=== PATIENT | female | born 1950 | race Caucasian/White ===

== ENCOUNTER → 2017-10-25 07:44 | Outpatient (CLI) | payer MEDICARE, SELFPAY ==
[2017-10-25 09:51] LABS: Abs Immature Grans 0.04 k/cumm (0.0-0.09); Absolute Basophil Count 0.02 k/cumm (0.0-0.2); Absolute Eosinophil Count 0.17 k/cumm (0.0-0.7); Absolute Lymphocyte Count 1.74 k/cumm (1.2-3.4); Absolute Monocyte Count 0.17 k/cumm (0.11-0.7); Absolute Neutrophil Count 3.48 k/cumm (1.2-6.7); Basophils % 0.4; HCT 43.9 % (36.0-46.0); HGB 14.5 g/dL (12.0-15.5); Immature Grans % 0.7; Mean Corpuscular Hemoglobin 29.7 pg (27.0-33.0); Mean Corpuscular Volume 89.8 fL (80-95); Mean Platelet Volume 10.4 fL (8.0-11.0); Neutrophils % 61.9; Platelet Count 243 x1000/uL (130-400); RBC 4.89 m/cumm (4.00-5.20); White Blood Cell Count 5.62 k/cumm (4.4-10.8)
[2017-10-25 10:00] LABS: ALT 32 U/L (12-78); AST 15 U/L (15-37); Albumin 3.8 g/dL (3.4-5.0); Alkaline Phosphatase 79 U/L (46-116); Anion Gap 9.8 mmol/L (3-11); BUN 20 mg/dL (7-18); Bilirubin, Total 0.4 mg/dL (0.2-1.0); CO2 28.2 mmol/L (21.0-32.0); CREATININE 0.86 mg/dL (0.55-1.02); Calcium 8.7 mg/dL (8.5-10.1); Chloride 104 mmol/L (98-107); Glucose 147 mg/dL (70-100); Potassium 3.7 mmol/L (3.5-5.1); Sodium 142 mmol/L (136-145); Total Protein 6.9 g/dL (6.4-8.2)
== END ==
PROVIDERS: PCP Pain Medicine Pain Medicine; Visit Provider Internal Medicine Medical Oncology
DX: C50.211 Malignant neoplasm of upper-inner quadrant of right female breast (principal); Z17.0 Estrogen receptor positive status [ER+]
CPT/HCPCS: 36415; 80053; 85025

== ENCOUNTER 2018-06-06 04:13 | Outpatient (CLI) | payer MEDICARE, OTHER, SELFPAY ==
[2018-06-06 09:39] LABS: Abs Immature Grans 0.03 k/cumm (0.0-0.09); Absolute Basophil Count 0.05 k/cumm (0.0-0.2); Absolute Eosinophil Count 0.18 k/cumm (0.0-0.7); Absolute Lymphocyte Count 2.08 k/cumm (1.2-3.4); Absolute Monocyte Count 0.44 k/cumm (0.11-0.7); Absolute Neutrophil Count 3.27 k/cumm (1.2-6.7); Basophils % 0.8; HCT 42.8 % (36.0-46.0); HGB 14.1 g/dL (12.0-15.5); Immature Grans % 0.5; Lymphocytes % 34.4; Mean Corp. HGB Concentration 32.9 g/dL (32.0-36.0); Mean Corpuscular Hemoglobin 29.1 pg (27.0-33.0); Mean Corpuscular Volume 88.4 fL (80-95); Mean Platelet Volume 10.2 fL (8.0-11.0); Monocytes % 7.3; Platelet Count 235 x1000/uL (130-400); RBC 4.84 m/cumm (4.00-5.20); RBC Distribution Width 16.6 % (11.7-14.6); White Blood Cell Count 6.05 k/cumm (4.4-10.8)
[2018-06-06 11:00] LABS: ALT 26 U/L (12-78); AST 14 U/L (15-37); Alkaline Phosphatase 79 U/L (46-116); Anion Gap 10.1 mmol/L (3-11); BUN 24 mg/dL (7-18); Bilirubin, Total 0.4 mg/dL (0.2-1.0); CO2 28.9 mmol/L (21.0-32.0); CREATININE 1.02 mg/dL (0.55-1.02); Calcium 9.4 mg/dL (8.5-10.1); Chloride 101 mmol/L (98-107); Estimated GFR 54.05 (mL/min/1.73m2); Glucose 89 mg/dL (70-100); Potassium 4.1 mmol/L (3.5-5.1); Sodium 140 mmol/L (136-145); Total Protein 6.7 g/dL (6.4-8.2)
== END 2018-06-06 04:33 ==
PROVIDERS: PCP Pain Medicine Pain Medicine; Visit Provider Internal Medicine Medical Oncology
DX: C50.211 Malignant neoplasm of upper-inner quadrant of right female breast (principal); Z17.0 Estrogen receptor positive status [ER+]
CPT/HCPCS: 36415; 80053; 85025

== ENCOUNTER 2018-12-02 01:32 | Outpatient (CLI) | payer MEDICARE, OTHER, SELFPAY ==
[2018-12-02 11:12] LABS: Abs Immature Grans 0.03 k/cumm (0.0-0.09); Absolute Basophil Count 0.02 k/cumm (0.0-0.2); Absolute Eosinophil Count 0.18 k/cumm (0.0-0.7); Absolute Lymphocyte Count 1.77 k/cumm (1.2-3.4); Absolute Monocyte Count 0.39 k/cumm (0.11-0.7); Absolute Neutrophil Count 2.57 k/cumm (1.2-6.7); Basophils % 0.4; Eosinophils % 3.6; HCT 41.2 % (36.0-46.0); HGB 13.4 g/dL (12.0-15.5); Immature Grans % 0.6; Lymphocytes % 35.7; Mean Corp. HGB Concentration 32.5 g/dL (32.0-36.0); Mean Corpuscular Hemoglobin 29.3 pg (27.0-33.0); Mean Platelet Volume 10.1 fL (8.0-11.0); Monocytes % 7.9; Neutrophils % 51.8; Platelet Count 228 x1000/uL (130-400); RBC 4.58 m/cumm (4.00-5.20); RBC Distribution Width 17.1 % (11.7-14.6); White Blood Cell Count 4.96 k/cumm (4.4-10.8)
[2018-12-02 11:26] LABS: ALT 27 U/L (14-59); AST 15 U/L (15-37); Albumin 3.7 g/dL (3.4-5.0); Alkaline Phosphatase 70 U/L (46-116); Anion Gap 8.1 mmol/L (3-11); BUN 21 mg/dL (7-18); Bilirubin, Total 0.3 mg/dL (0.2-1.0); CO2 27.9 mmol/L (21.0-32.0); CREATININE 0.89 mg/dL (0.55-1.02); Calcium 8.8 mg/dL (8.5-10.1); Chloride 109 mmol/L (98-107); Glucose 89 mg/dL (70-100); Potassium 3.9 mmol/L (3.5-5.1); Sodium 145 mmol/L (136-145); Total Protein 6.8 g/dL (6.4-8.2)
== END 2018-12-02 01:52 ==
PROVIDERS: Nurse Practitioner Family; PCP Pain Medicine Pain Medicine; Visit Provider Internal Medicine Hematology & Oncology
DX: C50.211 Malignant neoplasm of upper-inner quadrant of right female breast (principal); Z17.0 Estrogen receptor positive status [ER+]
CPT/HCPCS: 36415; 80053; 85025

== ENCOUNTER 2019-12-14 13:59 | Outpatient (REF) | payer MEDICARE, OTHER, SELFPAY ==
[2019-12-16 21:54] LABS: Patient Race White; SARS-CoV-2 RNA Undetected (Undetected); SARS-CoV-2 Specimen Source Nasal
== END 2019-12-14 14:19 ==
LOC: NCHCN 13:59
PROVIDERS: PCP Pain Medicine Pain Medicine; Visit Provider Family Medicine
DX: Z20.828 Contact with and (suspected) exposure to other viral communicable diseases (principal)
CPT/HCPCS: U0003

== ENCOUNTER 2020-05-03 20:36 | Emergency (ER) | payer MEDICARE, OTHER, SELFPAY ==
[2020-05-03 20:40] VITALS: BP 146/81; PULSE 73; RESP 16; TEMP 36.7; O2SAT 98
--- NOTE | 2020-05-03 20:40 | ED.GENADUL_ITS ---
Discharge Plan Disposition Patient Disposition: HOME Condition: Good Discharge Details Clinical Impression: Septic bursitis of elbow Primary Care Provider: Ankit Vera ED Provider: Jake Chaudhry Meds and New Rx's Prescriptions: New cephalexin 500 mg capsule 500 mg PO Q8H Qty: 20 RF: 0 Continued rauwolfia serpentina (bulk) 1 GM powder 3 drp PO DAILY RF: 0 Discharge Instructions Instructions: Elbow Bursitis (ED) Additional Instructions: This appears to be an infected bursitis likely brought on to the trauma from last week and subsequent infection. Should respond to antibiotics in the next 24 to 48 hours. Keep your arm elevated. Continue acetaminophen and/or ibuprofen for pain and discomfort. Take antibiotic as directed every 8 hours. Follow-up with primary care Thursday if not significant improvement. Return to ED if worsening symptoms, increased pain, decreased range of motion, fever, chills. Referrals: Ankit Vera [Primary Care Provider] - Discharge Data Discharge Date/Time-TO BE ENTERED AT DEPARTURE: 05/03/20 21:10 Medical Decision Making Patient appears to have a septic bursitis. The swelling distal is related to gravity pull. There is probably some overlying cellulitis. She is afebrile and looks well with no systemic symptoms. She actually has normal range of motion of the left elbow. No pain within the joint itself. Swelling over home health nurse about the size of a golf ball. There is warmth, erythema, mild tenderness. Will start patient on cephalexin. Should notice improvement within 36-48 hours. If no improvement follow-up with PCP on Thursday. If significantly worse over the weekend return to ED. HPI General Mode of arrival: ambulatory . Date/Time Provider Initiated Documentation: 05/03/20 20:40 . Limitations to Documentation: no limitations . Information obtained by: patient and RN notes reviewed . HPI Narrative: Patient presents to ED with swelling and redness to the back of her left elbow. 1 week ago she banged it on the bathtub while giving her dog a bath. Had pain at night some swelling seem to be getting better. In the last 24 hours it has become more swollen, red, painful. She still has decent range of motion of the elbow without significant pain. She denies any fever or chills. She has been using ibuprofen. She is now noticed swelling down around the wrist as well. She talked to a friend who was a nurse and was encouraged to come to ED to evaluate for infection. Related Data Home Medications Medication Instructions Recorded Confirmed marlene gallo (bulk) 3 drp PO DAILY 12/18/15 05/03/20 cephalexin 500 mg PO Q8H #20 cap 05/03/20 Previous Rx's Medication Instructions Recorded cephalexin 500 mg PO Q8H #20 cap 05/03/20 Allergies Allergy/AdvReac Type Severity Reaction Status Date / Time propoxyphene HCl AdvReac Severe Unverified 05/03/20 20:43 [facility] Review of Systems Constitutional Constitutional: Denies chills, Denies fever(s) and Denies weakness Cardiovascular Cardiovascular: Denies dyspnea Respiratory Respiratory: Denies cough and Denies dyspnea Musculoskeletal Musculoskeletal: Denies arthralgias and Denies numbness Integumentary/Breasts Skin/Breast: Reports erythema Neurologic Neurologic: Denies numbness and Denies weakness [facility] Medical History Breast cancer Surgical History History of lumpectomy of right breast Social History Smoking/Tobacco Use Status: Never Smoking risk assessment performed?: Yes Alcohol Intake: never Drug use: Never Substance use type: does not use Current gender identity: female Do you feel safe at home: Yes Do you feel safe in your relationship?: Yes Exam Const General: cooperative, comfortable and no acute distress Orientation: alert and oriented x3 [facility] Head: normocephalic and atraumatic Neck Neck: trachea midline and supple Resp Effort & Inspection: normal respiratory effort Skin General skin exam: erythema Wounds: no wounds Neuro General: patient alert, patient oriented x3 and no focal motor deficits Sensory Exam: no sensory deficits noted Extrem Left upper extremity: elbow/forearm Details: tenderness Location: of the olecranon (bursa), swelling Location: of the olecranon (bursa swelling), normal ROM, warmth Location: of the olecranon bursa and distal pulses intact
[2020-05-03] MEDS: Cephalexin 500 MG CAP, 2 CAPS/BTL PO (21:07)
--- NOTE | 2020-05-04 08:36 | NUR.NOTE ---
Nursing Note: received note to call in prescription for pt at [facility] in [facility]. Cephalexin called to Pharmacist Adriano @ [phone].
== END 2020-05-03 21:10 | disposition home or self-care (01) ==
LOC: ER 21:11
PROVIDERS: Emergency Provider Emergency Medicine; PCP Pain Medicine Pain Medicine
DX: M70.32 Other bursitis of elbow, left elbow (principal)
CPT/HCPCS: 99283

== ENCOUNTER 2020-11-26 20:29 | Emergency (ER) | payer MEDICARE, OTHER, SELFPAY ==
[2020-11-26 20:43] VITALS: BP 167/84; PULSE 89; RESP 18; TEMP 36.3; O2SAT 98
--- NOTE | 2020-11-26 21:47 | ED.GENADUL_ITS ---
Discharge Plan Disposition Patient Disposition: HOME Condition: Improving Discharge Details Clinical Impression: Odontalgia Primary Care Provider: Ankit Vera ED Provider: Shady Avila Home Meds and New Rx's Prescriptions: New penicillin V potassium 500 mg tablet 500 mg PO TID 10 Days Qty: 30 RF: 0 Continued rauwolfia serpentina (bulk) 1 GM powder 3 drp PO DAILY RF: 0 Discharge Instructions Instructions: Toothache (ED) Additional Instructions: Take penicillin as prescribed. Follow-up with dentistry and asked to be placed on their short-term callback list. Tylenol and ibuprofen as needed for pain. Salt water gargles will speed in healing. [facility]. Return to ER for any acute concerns. Your prescription was fax[facility] to [facility] [place] Medical Decision Making 70-year-old female presents from home with onset of left upper dental pain after biting into hard food a number of days ago. Is been throbbing, constant pain since that time. Patient arrives to ER stable and without significant distress. She has likely developing periapical infection of the left lateral incisor. Will place on penicillin, she has freestanding plans to follow-up with dentistry. She declines a dental block. She is otherwise stable and improved. HPI General Mode of arrival: ambulatory . Date/Time Provider Initiated Documentation: 11/26/20 21:37 . Limitations to Documentation: no limitations . Information obtained by: patient . History of Present Illness 70 year old F presents to the emergency department with the chief complaint of Tooth pain left upper, described as moderate, Quality is described as dull, and is localized to the mouth and left. Patient reports no radiation. Patient started experiencing this day(s) and it has been constant. No relieving factors improve symptom(s), No exacerbating factors reported . Patient notes denies headaches, loss of appetite and nausea/vomiting. Patient did receive the following treatments prior to arrival, NSAID Related Data Home Medications Medication Instructions Recorded Confirmed rauwolfia serpentina (bulk) 3 drp PO DAILY 12/18/15 05/03/20 penicillin V potassium 500 mg PO TID 10 Days #30 tab 11/26/20 Previous Rx's Medication Instructions Recorded penicillin V potassium 500 mg PO TID 10 Days #30 tab 11/26/20 Allergies Allergy/AdvReac Type Severity Reaction Status Date / Time propoxyphene HCl AdvReac Severe Unverified 11/26/20 20:48 [From [facility]] General Stated Complaint: DentalOral JULIETTE: 4 Review of Systems Narrative: 6 systems reviewed and otherwise negative [facility] Medical History Breast cancer Surgical History History of lumpectomy of right breast Social History Smoking/Tobacco Use Status: Never Smoking risk assessment performed?: Yes Alcohol Intake: never Drug use: Never Substance use type: does not use Current gender identity: female Do you feel safe at home: Yes Do you feel safe in your relationship?: Yes Exam Narrative Exam Narrative: GEN: awake, alert, oriented 3. Pleasant, well groomed, interactive. HEAD: Normocephalic, atraumatic ENT: Mucous membranes moist, oropharynx with tenderness to the left lateral incisor. No significant buccal or lingual fluctuance., External ear exam unremarkable NECK: Full ROM, no DIVYA, no menigismus EXT: Full ROM, no edema, no rash Neuro: Grossly normal neurologic exam, conversant, interactive. Psych: Speech fluent, thoughts congruent, affect normal Course Vital Signs Vital signs: Vital Signs Temperature 36.3 C L 11/26/20 20:43 Pulse 89 11/26/20 20:43 Respiratory Rate 18 11/26/20 20:43 Blood Pressure 167/84 H 11/26/20 20:43 Pulse Oximetry 98 11/26/20 20:43 Temperature 36.3 C L 11/26/20 20:43 Temperature Source Temporal Artery Scan 11/26/20 20:43 Pulse 89 11/26/20 20:43 Respiratory Rate 18 11/26/20 20:43 Respiratory Effort 11/26/20 20:46 Blood Pressure 167/84 H 11/26/20 20:43 Blood Pressure Position Supine 11/26/20 20:43 Pulse Oximetry 98 11/26/20 20:43 Pain Level 10 11/26/20 20:43
[2020-11-26 22:01] VITALS: BP 148/74; PULSE 64; RESP 18; TEMP 36.6; O2SAT 99
== END 2020-11-26 22:09 | disposition home or self-care (01) ==
PROVIDERS: Emergency Provider Emergency Medicine; PCP Pain Medicine Pain Medicine
DX: R68.84 Jaw pain (principal)
CPT/HCPCS: 99283

== ENCOUNTER 2022-03-15 12:13 | Outpatient (CLI) | payer MEDICARE, OTHER, SELFPAY ==
--- NOTE | 2022-03-15 | DI.RAD_ITS ---
Exam(s) XR CHEST 2V PA LATERAL EXAM: XR CHEST 2V PA LATERAL CLINICAL HISTORY: influenza a (ICD-J09.x2) TECHNIQUE: 2D digital imaging was performed. COMPARISON: No exams were available for comparison FINDINGS: HEART: Normal size. Aorta: Not dilated. PULMONARY VASCULATURE: Normal. LUNGS: Clear. PLEURAL SPACE: No pleural effusion or pneumothorax. BONE:Unremarkable for age. IMPRESSION: No acute abnormality. DATA REPOSITORY: RADIATION DOSE DELIVERED:
--- NOTE | 2022-03-15 13:16 | DI.VRAD_ITS ---
PROCEDURE INFORMATION: Exam: XR Chest Exam date and time: 03/15/2022 12:36 PM Age: 71 years old Clinical indication: Other: Influenza a, checking to make sure there is no pneumonia TECHNIQUE: Imaging protocol: Radiologic exam of the chest. 2image(s) are provided. Views: 2 views. COMPARISON: No relevant prior studies available. FINDINGS: Lungs: No lobar consolidation is appreciated. Pleural spaces: No pneumothorax or pleural effusion is appreciated. Heart/Mediastinum: The cardiomediastinal silhouette is normal. No cardiac decompensation is appreciated. Diaphragm: The hemidiaphragms are symmetric. Bones/joints: No fracture or dislocation is appreciated. Soft tissues: No radiopaque foreign body or subcutaneous emphysema is appreciated. IMPRESSION: No lobar consolidation is appreciated.No acute cardiopulmonary changes are appreciated. Dictated and Authenticated by: Corky Jay MD. Ordering:YELENA Carter MD
== END 2022-03-15 12:33 ==
LOC: DI 12:22
PROVIDERS: PCP Pain Medicine Pain Medicine; Visit Provider Physician Assistant Medical
DX: J09.X2 Influenza due to identified novel influenza A virus with other respiratory manifestations (principal)
CPT/HCPCS: 71046

== ENCOUNTER 2022-08-14 09:10 | Outpatient (CLI) | payer MEDICARE, SELFPAY ==
--- NOTE | 2022-08-14 09:00 | DI.RAD_ITS ---
Exam(s) XR KNEE RT 4V AP,LAT,MONI,PAT EXAM: XR KNEE RT 4V AP,LAT,MONI,PAT CLINICAL HISTORY: Right knee pain. TECHNIQUE: 2D digital imaging was performed. COMPARISON: No exams were available for comparison FINDINGS: Four views No evidence of fracture although there does appear to be a joint. There are significant degenerative changes the medial compartment. Some joint space narrowing and marginal osteophytes. Also appears to be a possible osteochondral defect at the articular surface of the medial femoral condyle. There is a prominent degenerative subarticular cysts in the medial femoral condyle also noted. Lateral com partment exhibits normal height but also exhibits faint chondrocalcinosis. Patellofemoral compartment unremarkable. IMPRESSION: Findings in the medial compartment as described above. DATA REPOSITORY: RADIATION DOSE DELIVERED:
== END 2022-08-14 09:11 | disposition home or self-care (01) ==
LOC: DIORS 09:11
PROVIDERS: PCP Pain Medicine Pain Medicine; Referring Provider Pain Medicine Pain Medicine; Visit Provider Physician Assistant
DX: M17.11 Unilateral primary osteoarthritis, right knee
CPT/HCPCS: 99214; 73564

== ENCOUNTER → 2023-01-20 14:36 | Outpatient (BNVA) | payer MEDICARE, SELFPAY | PROVIDERS: PCP Pain Medicine Pain Medicine; Referring Provider Pain Medicine Pain Medicine; Visit Provider Student in an Organized Health Care Education/Training Program | DX: M17.11 Unilateral primary osteoarthritis, right knee (principal); M65.4 Radial styloid tenosynovitis [de Quervain] | CPT/HCPCS: 99213 ==

== ENCOUNTER 2024-01-21 21:41 | Outpatient (REF) | payer MEDICARE, SELFPAY ==
--- OUTSIDE RECORDS SUMMARY | 2024-01-21 21:45 | XMS_ITS | Encounter Summary ---
Author Organization [facility] [place] [address] Care Team Providers Care Turner Splitter Machine Operator Name Role Phone Ankit Vera MD Primary Care Provider + [phone] Encounter Details Date Type Department Care Team (Late st Contact Info) Description 12/06/2021 Orders Only Obstetrics [place] [address] Kamini Castorena V THREAD MARKER [facility] OBSTETRICS [place] [address] Social History Tobacco Use Types Packs/Day Years Used Date Smoking Tobacco: Former Cigarettes Q uit: 07/30/1973 Smokeless Tobacco: Never Comments:smoked a little in college Alcohol Use Standard Drinks/Week Comments No 0 (1 standard drink = 0.6 oz pur e alcohol) Once a month Sex and Gender Information Value Date Recorded Sex Assigned at Female 03/25/2021 7:30 PM EST Gender Identity Female 03/25/2021 7:31 PM EST Sexual Orientation Straight 03/25/2021 7: 30 PM EST documented as of this encounter Plan of Treatment Not on file documented as of this encounter Visit Diagnoses Not on filedocumented in this encounter Care Teams Turner Splitter Machine Operator Relationship Specialty Start Date End Date Ankit Vera MD [id number] [address] PCP - General 02/05/10 documented as of this encounter
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
--- OUTSIDE RECORDS SUMMARY | 2024-01-21 21:45 | XMS_ITS | Encounter Summary ---
Author Organization [facility] [place] [address] Care Team Providers Care Medtronics Technician Name Role Phone Ankit Vera MD Primary Care Provider + [phone] Reason for Visit * Reason Onset Date Comments Medication Refill 11/09/2023 Encounter Details Date Type Department Care Team (Late st Contact Info) Description 11/09/2023 Refill Obstetrics [place] [address] Kamini Castorena APRN [facility] OBSTETRICS [place] [address] Social History Tobacco Use Types Packs/Day Years [...] on filedocumented in this encounter Care Teams Medtronics Technician Relationship Specialty Start Date End Date Ankit Vera MD [address] [address] PCP - General 02/05/10 documented as of this encounter
--- OUTSIDE RECORDS SUMMARY | 2024-01-21 21:45 | XMS_ITS | Encounter Summary ---
Author Organization [facility] [place] [address] Care Team Providers Care Swine Genetics Researcher Name Role Phone Ankit Vera MD Primary Care Provider + [phone] Encounter Details Date Type Department Care Team (Late st Contact Info) Description 11/12/2023 Telephone Obstetrics [place] [phone] Mary James Social History Tobacco Use Types Packs/Day Years [...] PM EST documented as of this encounter Miscellaneous Notes * Telephone Encounter - Mary James - 11/12/2023 11:40 AM EDT Left message to schedule 6 month follow up around 01/11 for LS check up with Kamini Castorena. documented in this encounter Plan of Treatment Not on file documented as of this encounter Visit Diagnoses Not on filedocumented in this encounter Care Teams Swine Genetics Researcher Relationship Specialty Start Date End Date Ankit Vera MD [address] [address] PCP - General 02/05/10 documented as of this encounter
--- OUTSIDE RECORDS SUMMARY | 2024-01-21 21:45 | XMS_ITS | Encounter Summary ---
Author Organization [facility] [place] [address] Care Team Providers Care Stars Analytical Lead Name Role Phone Ankit Vera MD Primary Care Provider + [phone] Reason for Visit * Reason Onset Date Comments Medication Refill 01/29/2022 Encounter Details Date Type Department Care Team (Late st Contact Info) Description 01/29/2022 Refill Obstetrics [place] [address] Sophia Alexandra MD [facility] [address] OBSTETRICS [place] [address] Social History Tobacco Use Types Packs/Day Years [...] on filedocumented in this encounter Care Teams Stars Analytical Lead Relationship Specialty Start Date End Date Ankit Vera MD [address] [address] (work) PCP - General 02/05/10 documented as of this encounter
--- OUTSIDE RECORDS SUMMARY | 2024-01-21 21:45 | XMS_ITS | Encounter Summary ---
Author Organization [facility] [place] [address] Care Team Providers Care Physician Practice Consultant Name Role Phone Ankit Vera MD Primary Care Provider + [phone] Reason for Visit * Reason Onset Date Comments Medication Refill 12/22/2019 Encounter Details Date Type Department Care Team (Late st Contact Info) Description 12/22/2019 Refill Obstetrics [place] [address] Sophia Alexandra MD [facility] [address] OBSTETRICS [place] [address] Social History Tobacco Use Types Packs/Day Years [...] on filedocumented in this encounter Care Teams Physician Practice Consultant Relationship Specialty Start Date End Date Ankit Vera MD [address] [address] PCP - General 02/05/10 documented as of this encounter
--- OUTSIDE RECORDS SUMMARY | 2024-01-21 21:45 | XMS_ITS | Encounter Summary ---
Author Organization [facility] [place] [address] Care Team Providers Care Manager Eligibility Name Role Phone Ankit Vera MD Primary Care Provider [phone] Encounter Details Date Type Department Care Team (Late st Contact Info) Description 10/13/2019 10:30 AM EDT Office Visit Hematology/Oncology at [address] [phone] Mau Baker MD [facility] [address] [place] [address] Megan Rodriguez DIRECTOR OF RETAIL ANALYTICS [address] [place] [address] DR HEMATOLOGY ONCOLOGY [place], [place] [id number] Malignant neoplasm of upper-inner quadrant of right breast in female, estrogen receptor positive Social History Tobacco Use Types Packs/Day Years [...] Sign Reading Time Taken Comments Blood Pressure 133/57 10/13/2019 10:20 AM EDT Pulse 63 10/13/2019 10:20 AM EDT Temperature 36.7 ??C (98.1 ??F) 10/13/2019 10:20 AM E DT Respiratory Rate 18 10/13/2019 10:20 AM EDT Oxygen Saturation 99% 10/13/2019 10:20 AM EDT Inhaled Oxygen Concentration - - Weight 70.3 kg (155 lb) 10/13/2019 10:20 AM EDT Height 158.5 cm (5' 2.4) 10/13/2019 10:20 AM ED T copied Body Mass Index 27.99 10/13/2019 10:20 AM EDT documented in this encounter Progress Notes * Mau Baker MD - 10/13/2019 10:30 AM EDT Subjective: Patient ID: Flor Lema is a 69 y.o. female. HPI The patient is a 69-year-old female who returns to the [facility]. Right breast cancer 09/27 1.3 cm, node-negative ER positive, MS positive, HER-2/zayda negative Partial mastectomy Complete radiation therapy 11/28 Decline hormonal therapy Last mammogram -10/02 The patient continues to do quite well. She is working for an [employer] stand down in [place]. 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 She has not noted any lumps or bumps. No new focal pains. Energy is excellent. She has no complaints. Patient Active Problem List Diagnosis Code ??? 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 Elevated blood pressure reading with diagnosis of hypertension I10 ??? Hypertension I10 Current Outpatient Medications: ??? clobetasoL (TEMOVATE) 0.05 % Cream, Apply topically nightly. Apply pea-sized amount every othernight until the next clinic visit, Disp: 30 g, Rfl: 0 ??? naltrexone HCl (NALTREXONE ORAL), Take 3 mg by mouth daily., Disp: , Rfl: ??? HOMEOPATHIC DRUGS (RAUWOLFIA ORAL), Take by mouth. Patient takes this for blood pressure., Disp: , Rfl: ??? b complex vitamins Capsule, Take 1 capsule by mouth daily., Disp: , Rfl: ??? vitamin A (AQUASOL) 10,000 unit Capsule, Take 10,000 Units by mouth daily., Disp: , Rfl: ??? ascorbic acid (VITAMIN C) 1,000 mg Tablet, Take 1,000 mg by mouth 3 times daily., Disp: , Rfl: ??? Cholecalciferol, Vitamin D3, (VITAMIN D-3) 2,000 unit Capsule, Take 5,000 Units by mouth daily., Disp: , Rfl: ??? ibuprofen (ADVIL;MOTRIN) 200 mg Tablet, Take 200 mg by mouth every 6 hours as needed for Pain.,Disp: , Rfl: Allergies Allergen Reactions ??? Darvon [Propoxyphene] GI upset Review of Systems Constitutional: Negative for fatigue, fever and unexpected weight change. HENT: Negative for nosebleeds. Respiratory: Negative for cough and shortness of breath. Cardiovascular: Negative for chest pain and palpitations. Gastrointestinal: Negative for abdominal pain and diarrhea. Musculoskeletal: Negative for back pain. Skin: Negative for rash. Neurological: Negative for speech difficulty. Hematological: Negative for adenopathy. Does not bruise/bleed easily. All other systems reviewed and are negative. Objective: Physical Exam Constitutional: General: She is not in acute distress. HENT: Mouth/Throat: Pharynx: No oropharyngeal exudate. Eyes: General: No scleral icterus. Cardiovascular: Rate and Rhythm: Normal rate and regular rhythm. Heart sounds: Normal heart sounds. Pulmonary: Effort: Pulmonary effort is normal. Breath sounds: Normal breath sounds. No wheezing. Abdominal: General: Bowel sounds are normal. Palpations: Abdomen is soft. There is no mass. Tenderness: There is no abdominal tenderness. Lymphadenopathy: Cervical: No cervical adenopathy. Skin: Findings: No rash. Neurological: Mental Status: She is alert and oriented to person, place, and time. Assessment and Plan: 69-year-old female who is now 5 years out from resection of a stage I right- sided breast cancer. She did get her surgery and radiation therapy but declined hormonal therapy. There are no signs of local or systemic recurrence and overall she seems to be doing well. She is probably at low risk for recurrence of this primary tumor now that she is out 5 years. We did talk about discontinuing follow-up in the cancer center and only following up with her primary care doctor and I think that would be reasonable. We would recommend a yearly mammogram but she does not need any routine laboratory monitoring for her history of breast cancer. documented in this encounter Plan of Treatment Not on file documented as of this encounter Visit Diagnoses Diagnosis Malignant neoplasm of upper-inner quadrant of right breast in female, estrogen receptor positive documented in this encounter Care Teams Manager Eligibility Relationship Specialty Start Date End Date Ankit Vera MD [address] [place] [address] PCP - General 02/05/10 documented as of this encounter
--- OUTSIDE RECORDS SUMMARY | 2024-01-21 21:45 | XMS_ITS | Encounter Summary ---
Author Organization [facility] [place] [address] Care Team Providers Care Spot Remover Name Role Phone Ankit Vera MD Primary Care Provider + [phone] Reason for Visit * Reason Onset Date Comments Medication Refill 02/01/2021 Encounter Details Date Type Department Care Team (Late st Contact Info) Description 02/01/2021 Refill Obstetrics [place] [address] Sophia Alexandra MD [facility] DR OBSTETRICS [place] [address] Social History Tobacco Use Types Packs/Day Years [...] on filedocumented in this encounter Care Teams Spot Remover Relationship Specialty Start Date End Date Ankit Vera MD [address] [address] (work) PCP - General 02/05/10 documented as of this encounter
--- OUTSIDE RECORDS SUMMARY | 2024-01-21 21:45 | XMS_ITS | Encounter Summary ---
Author Organization [facility] [place] [address] Care Team Providers Care Supervisor Malt [employer] Name Role Phone Ankit Vera MD Primary Care Provider [phone] Encounter Details Date Type Department Care Team (Latest Contact Info) Description 06/17/2021 12:17 PM EDT - 06/17/2021 11:59 PM EDT Hospital Encounter Mammography/[place] [address] Kamini Castorena V, [facility] OBSTETR[place] [address] Well woman exam with routine gynecological exam; Asymptomatic menopausal state Discharge Disposition: Home Social History Tobacco Use Types Packs/Day Years [...] PM EST documented as of this encounter Medications at Time of Discharge Medication Sig Dispensed Refills Start Date End Date naltrexone HCl (NALTREXONE ORAL) Take 3 mg by mouth daily. HOMEOPATHIC DRUGS (RAUWOLFIA ORAL) Take by mouth. Patient takes this for blood pressure. b complex vitamins Capsule Take 1 capsule by mouth daily. vitamin A (AQUASOL) 10,000 unit Capsule Take 10,000 Units by mouth daily. ascorbic acid (VITAMIN C) 1,000 mg Tablet Take 1,000 mg by mouth 3 times daily. cholecalciferol, Vitamin D3, 50 mcg (2,000 unit) Capsule Take 5,000 Units by mouth daily. ibuprofen (ADVIL;MOTRIN) 200 mg Tablet Take 200 mg by mouth every 6 hours as needed for Pain. clobetasoL (Temovate) 0.05 % Cream Apply topically nightly. Apply pea-sized amount every other night until the next clinic visit 30 g 02/04/2021 01/29/2022 clobetasoL (Temovate) 0.05 % Cream Apply topically nightly. Apply pea-sized amount every other night until the next clinic visit 30 g 02/04/2021 12/06/2021 documented as of this encounter Plan of Treatment Not on file documented as of this encounter Procedures Procedure Name Priority Date/Time Associated Diagnosis Comments DXA CENTRAL SPINE, HIP, AND/OR WHOLE BODY (GENERIC) Routine 06/17/2021 12:50 PM EDT Well woman exam with routine gynecological exam Asymptomatic menopausal state documented in this encounter Results * DXA Central Spine, [...] BMD measurements and plots are available in [facility] under the imaging tab. Paper copies will be sent to providers without E- access. If you have received this report without the data sheet and do not have access to [facility], please contact Radiology Nuclear Plant Technical Advisor at [phone] Thursday thru Thursday 8am-4pm. ? Bone Density Report ? Name: ?Flor Lema Age: ? 71 Sex: ? Female Ethnicity: ? White Date of : 1950 Exam Date: June 17, 2021 Accession number: [id number] Bone Density: Region ? BMD ?T-score ??Z-score [...] who have questions please contact the health residential care officer that requested your imaging first. ? Electronically signed by: Jennifer Mueller MD, [facility] ([phone]), at 06/17/2021 4:36 PM Narrative 06/17/2021 4:36 PM EDT EXAMINATION: DXA CENTRAL SPINE, HIP, AND/OR WHOLE BODY (GENERIC) CLINICAL HISTORY: 71 years Female 71 year old with no prior DEXA scan ?? (as entered by ordering provider) TECHNIQUE: Scans were acquired at the lumbar spine, and left hip using the [employer] A system. COMPARISON: none FINDINGS: Lowest T-score [...] the lumbar spine, and left hip usingthe Popular[employer] A system. COMPARISON: none FINDINGS: Lowest T-score [...] BMD measurements and plots are available in [facility] the imaging tab. Paper copies will be sent to providers without [facility] access.If you have received this report without the data sheet and do not haveaccess to [facility], please contact Radiology Nuclear Plant Technical Advisor at [phone] Thursday thruFriday 8am-4pm. Bone Density Report Name: Flor Lema Age: 71 Sex: Female Ethnicity: White Date of : 1950 Exam Date: June 17, 2021 Accession number: [id number] Bone Density: Region BMD T-score Z-score AP [...] patients who have questions please contactthe health residential care officer that requested your imaging first. Kamini Howe APRN IMG DEXA ORDER DANIEL documented in this encounter Visit Diagnoses Diagnosis Well woman exam with routine gynecological exam Routine gynecological examination Asymptomatic menopausal state Asymptomatic postmenopausal status (age-related) (natural) documented in this encounter Care Teams Supervisor [place]alt House Relationship Specialty Start Date End Date Ankit Vera MD [address] [address] PCP - General 02/05/10 documented as of this encounter
--- OUTSIDE RECORDS SUMMARY | 2024-01-21 21:45 | XMS_ITS ---
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 Past Plans No past plan information found. Radiation Treatments * No radiation treatments are documented for this patient in [facility]. Treatments may have been administered in another system. 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 Radiation Oncologist Dr Estefania Marte Primary Care Physician KENN RUBIO Treatment Summary Chemotherapy and Supportive Care Treatment History BREAST CANCER NOTES 11/08/2015 Method of Cancer Detection abnormal mammogram 07/05/2014 Family History Breast cancer--Maternal great aunt Menopausal Status at Diagnosis post-menopausal Date of Diagnostic Biopsy 08/02/2014 Local Surgery Lumpectomy by Dr Lewis at [facility] Axillary Management [place] nodes alone--0+ of 1 Lymph node removed Date of Last Surgical Procedure 09/21/2014--lumpectomy Histology Invasive ductal carcinoma Tumor Staging from Staging System [id number] T1= tumor that is less than 2 cm N0= no involved lymph nodes M0 no distant spread Stage 1--good prognosis Size of Primary Malignancy 1.3 cm Grade Low grade Margin negative ER--estrogen receptor positive MA--progesterone receptor positive HER-2 negative Radiation therapy Dates of treatment: 10/30/14 - 11/28/14 Radiation detail: 42.56 Gy/16 fxs to R breast with 6 & 10 MV Xray external beam, followed by 10Gy/4 fxs to lumpectomy bed with 6 & 10 MV Xray external beam, boosting lumpectomy bed to 52.56 Gy/20 fxs. First Adjuvant Endocrine Therapy Tamoxifen discussed but not started Lifetime Dose Tracking: No doses have been documented on this patient for the following tracked chemicals: doxorubicin, epirubicin, idarubicin, daunorubicin, mitoxantrone, bleomycin N/A Follow-up and Survivorship Care How Frequent? Coordinating Provider Medical Oncology visits Every 6 months up to year 5 Medical oncology Lab tests As per medical oncology--there are no specific breast tumor markers Medical oncology Imaging exams Yearly mammogram PCP or surgeon Monitor for ongoing toxicities: Possible late and exterminator effects of treatment: Skin changes at the site of radiation. Late effects include change in pigmentation, skin thickening, retraction and fibrosis (scar tissue) and formation of telangiectasias (small red lines on skin--this can occur several years after completion of treatment and is cosmetic only) Lymphedema of the breast and arm are caused by lymph node dissection and fibrosis (scars) from radiation therapy and surgery. Your risk is very small. Report any swelling to your cancer team. You mayrequire physical therapy for manual lymphatic drainage and/or compression sleeve. It is recommendedthat you wear a compression sleeve when flying long distances. Bone Health: You are post menopausal. It is recommended that you have a bone density exam every twoyears. Take calcium 1200mg a day and vitamin D3 1000 IU a day. Weight bearing exercise can also reduce bone mass loss. As a breast cancer survivor we want your vitamin level to be between 35 and 45. Alteration in sexual function: Cancer diagnosis and treatment can cause changes in sexual function.You are encouraged to discuss this with your cancer care team. There are no restrictions in being sexually active. Water, oil or silicone-based lubricants or vaginal moisturizers can help with vaginal dryness. Different sexual positions may be more comfortable. Pain: Discuss any problems with persistent pain with your cancer team. Side effects of tamoxifen: There is a one in 1200 risk of uterine cancer and a very small risk of stroke, blood clot, or DVT. Report any chest pain with shortness of breath, vaginal bleeding, or painand swelling in your legs. Fatigue: Cancer related fatigue is a distressing persistent, subjective sense of physical, emotional, and/or cognitive tiredness or exhaustion related to cancer or cancer treatment that is not proportional to recent activity and interferes with usual functioning. This is a common issue for individuals undergoing cancer treatment and for cancer survivors sometimes for months and years following eileen gnosis and treatment. The time course of fatigue is unique to each person. In most cases mild to moderate fatigue will resolve within a year. If it persists longer than this time or if fatigue worsens discuss this issue with your cancer team for further evaluation. Anxiety depression: Survivors of cancer treatment are at high risk for anxiety and depression due to multiple stressors, feeling vulnerable and the many challenges that you have faced and continue toface. Fear of recurrence is normal. Let your providers know if you have any of these symptoms--frequent feelings of being nervous, restless or worried or fearful, trouble sleeping, difficulty concentrating, less interest or enjoyment of usual activities, feeling sad or depressed, difficulty performing your usual activities. PCP follow up: Yearly exams for health maintenance and preventative care. Yearly gynecologic exams for women's health care with either hitcher or primary care provider. LIFE STYLE: Exercise: Many studies now show that women who exercise and who do not gain weight reduce their risk of breast cancer recurrence. Engage in at least 20-30 minutes of moderate intensity activity on most days of the week. Include strength training exercises at least two days a week. Alcohol: Minimize alcohol intake to no more than one drink a day. Nutrition: Follow the [place] [employer] Guidelines that include the following: limit consumption of processed meat and red meat; eat at least 2.5 cups of vegetables and fruits daily; choose whole grains instead of refined grain products. High fiber and low fat diet is advised. Smoking: smoking increases the risk of breast cancer and other cancers Sunscreen should be used prolonged sun exposure, ie longer than 15 minutes. Screening: Colonoscopy at age 50, pelvic exams, bone density when menopausal, fasting lipid profileas indicated and at the discretion of you primary care provider and all other age appropriate screenings that need to be done yearly Vaccinations: Immunization of inactivated vaccines is recommended for cancer survivors. This includes flu vaccines yearly. Pneumonia vaccine is recommended per CDC guidelines for pneumonia vaccine--primary care provider would administer this. Potential signs of recurrence: Any symptom lasting more than 2 weeks and not improving--persistent pain, cough, shortness of breath, headache. Any change in skin at treatment site from post treatmentbaseline or new lump or nipple discharge. Resources: Helpful websites www. cancer.gov -- National Cancer [place] www. nccn.org -- National Comprehensive Cancer Network www. canceradvocacy. org --National Coalition for Cancer Survivorship www. livestrong. org -- [employer] Survivor Care www. acscsn.org -- Cancer Survivors Network Survivorship care provider contacts PROGRAMMING SPECIALIST: Daysi Dyson APRN Resolved Problems Problem Noted Date Diagnosed Date Resolved Date Elevated blood pressure read ing with diagnosis of hypertension 05/06/2017 04/01/2021 Overview (11/30/2017): Noted on visit 05/06/17 --> again on 11/30/2017. Now diagnosed with hypertension
--- OUTSIDE RECORDS SUMMARY | 2024-01-21 21:45 | XMS_ITS | Encounter Summary ---
Author Organization [facility] [place] [address] Care Team Providers Care Criminal Justice Professor Name Role Phone Ankit Vera MD Primary Care Provider + [phone] Encounter Details Date Type Department Care Team (Late st Contact Info) Description 07/08/2022 Telephone Obstetrics [place] [phone] Ludy Nicole Social History Tobacco Use Types Packs/Day Years [...] on filedocumented in this encounter Care Teams Criminal Justice Professor Relationship Specialty Start Date End Date Ankit Vera MD [address] [address] PCP - General 02/05/10 documented as of this encounter
--- OUTSIDE RECORDS SUMMARY | 2024-01-21 21:45 | XMS_ITS | Encounter Summary ---
Author Organization [facility] [place] [address] Care Team Providers Care Enrichment Specialist Name Role Phone Ankit Vera MD Primary Care Provider + [phone] Reason for Visit * Reason Onset Date Comments Medication Refill 02/04/2021 Encounter Details Date Type Department Care Team (Late st Contact Info) Description 02/04/2021 Refill Obstetrics [place] [address] Sophia Alexandra MD [facility] [address] [place] [address] Social History Tobacco Use Types Packs/Day Years [...] on filedocumented in this encounter Care Teams Enrichment Specialist Relationship Specialty Start Date End Date Ankit Vera MD [address] [address] (work) PCP - General 02/05/10 documented as of this encounter
--- OUTSIDE RECORDS SUMMARY | 2024-01-21 21:45 | XMS_ITS | Encounter Summary ---
[place] [address] Care Team Providers Care Campus Interviews Intern Name Role Phone Ankit Vera MD Primary Care Provider + [phone] Encounter Details Date Type Department Care Team (Latest Contact Info) Description 07/09/2022 9:38 AM EDT - 07/09/2022 11:59 PM EDT Hospital Encounter Mammography[place] [address] Ankit Vera MD [address] [place] [id number] Screening mammogram for breast cancer Discharge Disposition: Home Social History Tobacco Use [...] every 6 hours as needed for Pain. valACYclovir (Valtrex) 1 gram tablet Take 1 tablet by mouth daily. 90 tablet 3 07/09/2022 07/09/2023 clobetasoL (Temovate) 0.05 % Ointment Apply scant amount topically to vulva as instructed by provider every - 15 g 07/09/2022 11/09/2023 estradioL (Estrace) 0.01 % (0.1 mg/gram) Cream Place 1 g vaginally twice a week. Massage pea size amount into vaginal tissue twice weekly. 40 g 07/10/2022 11/09/2023 documented as of this encounter Plan of Treatment Not on file documented as of this encounter Procedures Procedure Name Priority Date/Time Associated Diagnosis Comments MAMMO SCREENING CAD AND JAIR BILATERAL Routine 07/09/2022 10:16 AM EDT Screening mammogram for breast cancer documented in this encounter Results * Mammo Screening Cad and Jair Bilateral (07/09/2022 10:16 AM EDT) Anatomical Region Laterality Modality Breast Bilateral Mammography Impressions 07/09/2022 10:32 AM EDT No mammographic evidence of malignancy. RECOMMENDATION: Routine screening mammography is recommended with the frequency dependent on the patients age, breast cancer risk factors and preference. Additional studies may be recommended for women with higher than average risk for breast cancer. A result letter has been sent to this patient by [facility]. BI-RADS Category 2: Benign * ??Regular screening mammograms starting between age 40 and 50 reduces the risk of from breast cancer. * ??All screening tests have both risks and benefits. These risks and benefits should be assessed for each individual patient through discussion with their provider to determine their preferred breast cancer screening schedule. * ??Women should report any breast changes to a health care provider right away. * ??Some women, because of their family history, a genetic tendency, or other factors, should be screened with annual breast MRI as well as with mammograms. (The number of women who fall into this category is very small). Patients and health care providers should discuss each patients history to decide if earlier screening and/or breast MRI are appropriate. * ??Screening should continue as long as a woman is in good health and is expected to live 10 years or longer. * ??Screening mammography may not detect 10-15% of breast cancers. Thank you for letting us participate in the care of this patient. ??If you are a health care provider and have any questions regarding this report, please contact the number below. ??For patients who have questions please contact the health healthcare liaison that requested your imaging first. ? Electronically signed by: Gale Dias MD, [facility] ([phone]), at 07/09/2022 10:32 AM Narrative 07/09/2022 10:32 AM EDT REASON FOR EXAM: Screening TECHNIQUE: CC and MLO views were obtained of BOTH breasts. 2D and 3D tomosynthesis images were obtained. Computer aided detection was used. COMPARISON: Prior images BREAST DENSITY: There are scattered areas of fibroglandular density. FINDINGS: There are no suspicious microcalcifications, masses, or areas of distortion in either breast. No significant changes compared to prior studies. There are posttreatment changes in the right breast. Ankit Vera MD IMG MAMMO ORDERABLES documented in this encounter Visit Diagnoses Diagnosis Screening mammogram for breast cancer documented in this encounter Care Teams Campus Interviews Intern Relationship Specialty Start Date End Date Ankit Vera MD [address] [place] [address] PCP - General 02/05/10 documented as of this encounter
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
--- OUTSIDE RECORDS SUMMARY | 2024-01-21 21:45 | XMS_ITS | Encounter Summary ---
[place] [address] Care Team Providers Care Director Of Curriculum Name Role Phone Ankit Vera MD Primary Care Provider + [phone] Encounter Details Date Type Department Care Team (Latest Contact Info) Description 07/09/2022 Travel Social History Tobacco Use Types Packs/Day Years [...] on filedocumented in this encounter Care Teams Director Of Curriculum Relationship Specialty Start Date End Date Ankit Vera MD [address] [address] PCP - General 02/05/10 documented as of this encounter
--- OUTSIDE RECORDS SUMMARY | 2024-01-21 21:45 | XMS_ITS | Clinical Summary ---
Author Organization [facility] Address [facility] [place] [address] Care Team Providers Care Store Host Name Role Phone Ankit Vera MD Primary Care Provider Allergies Active Allergy Reactions Criticality Noted Date Comments Propoxyphene 08/29/2014 GI upset Medications Medication Sig Dispensed Refills Start Date End Date Status b complex vitamins Capsule Take 1 capsule by mouth daily. Active vitamin A (AQUASOL) 10,000 unit Capsule Take 10,000 Units by mouth daily. Active ascorbic acid (VITAMIN C) 1,000 mg Tablet Take 1,000 mg by mouth 3 times daily. Active cholecalciferol, Vitamin D3, 50 mcg (2,000 unit) Capsule Take 5,000 Units by mouth daily. Active ibuprofen (ADVIL;MOTRIN) 200 mg Tablet Take 200 mg by mouth every 6 hours as needed for Pain. Active HOMEOPATHIC DRUGS (RAUWOLFIA ORAL) Take by mouth. Patient takes this for blood pressure. Active naltrexone HCl (NALTREXONE ORAL) Take 3 mg by mouth daily. Active lisinopriL (Zestril) 5 mg tablet Take 5 mg by mouth daily. 07/08/2023 Active valACYclovir (Valtrex) 1 gram tabletIndications: HSV infection Take 1 tablet by mouth daily. 90 tablet 3 08/19/2023 08/18/2024 Active estradioL (Estrace) 0.01 % (0.1 mg/gram) Cream Place 1 g vaginally twice a week. Massage pea size amount into vaginal tissue twice weekly. 42.5 g 11 11/12/2023 Active clobetasoL (Temovate) 0.05 % Ointment Apply rice sized amount to vulva as instructed by provider 1-2 times per week. 15 g 11 11/20/2023 Active Active Problems Problem Noted Date Diagnosed Date Hypertension 11/30/2017 Breast cancer of upper-inner quadrant of right female breast Resolved Problems Problem Noted Date Diagnosed Date Resolved Date Elevated blood pressure read ing with diagnosis of hypertension 05/06/2017 04/01/2021 Overview (11/30/2017): Noted on visit 05/06/17 --> again on 11/30/2017. Now diagnosed with hypertension Encounters Date Type Department Care Team Description 11/12/2023 Telephone Obstetrics [place] [address] Mary James 11/09/2023 Refill Obstetrics [place] [address] Kamini Castorena V, C T TECH from Last 3 Months Family History Medical History Relation Comments Diabetes Father Lung Cancer Mother age 69 Breast Cancer Neg Hx Colorectal Cancer Neg Hx Ovarian Cancer Neg Hx Pancreatic Cancer Neg Hx Uterine Cancer Neg Hx Relation Status Comments Father Mother Social History Tobacco Use Types Packs/Day Years [...] Orientation Straight 03/25/2021 7: 30 PM EST Last Filed Vital Signs Vital Sign Reading Time Taken Comments Blood Pressure 167/84 07/13/2023 8:30 AM EDT Pulse 53 07/13/2023 8:30 AM EDT Temperature 36.8 ??C (98.3 ??F) 07/09/2022 10:40 AM E DT Respiratory Rate 20 07/09/2022 10:40 AM EDT Oxygen Saturation 97% 07/13/2023 8:30 AM EDT Inhaled Oxygen Concentration - - Weight 74 kg (163 lb 1.6 oz) 07/13/2023 8:30 AM EDT Height 157.5 cm (5' 2) 07/13/2023 8:30 AM EDT Body Mass Index 29.83 07/13/2023 8:30 AM EDT Plan of Treatment Health Maintenance Due Date Last Done Comments CT Colonography 1950 FIT DNA 1950 FIT 1950 Sigmoidoscopy 1950 Hepatitis C Screening 1969 Lipid Screening 1969 Tetanus/Diphtheria/Pertussis Vaccines (1 - Tdap) 1970 Breast Cancer Share Decision Needed 1991 Zoster vaccine (1 of 2) 2001 Advance Directive 2006 Pneumoccocal Vaccine: 65+ (1 of 1 - PCV) 2016 Colonoscopy 05/13/2022 05/13/2017, 05/13/2017 Colorectal Cancer Screening 05/13/2022 Covid-19 Vaccine (1 - 2023-2 5 season) 2023 Influenza (Flu) vaccine (1 o f 1 - Influenza standard series) 11/15/2023 Breast Cancer screening 07/12/2025 07/13/19 24, 07/09/2022, 05/20/2021, Additional history exists Sigmoidoscopy (10 year) with FIT yearly 05/13/2027 05/13/2017, 05/13/2017 Bone Density Scan 06/17/2036 06/17/2021 Procedures Procedure Name Priority Date/Time Associated Diagnosis Comments MAMMO SCREENING CAD AND JAIR BILATERAL Routine 07/13/2023 10:12 AM EDT Encounter for screening mammogram for breast cancer DXA CENTRAL SPINE, HIP, AND/OR WHOLE BODY (GENERIC) Routine 06/17/2021 12:50 PM EDT Well woman exam with routine gynecological exam Asymptomatic menopausal state COLONOSCOPY Routine 05/13/2017 12:52 PM EST from Last 3 Months or Most Recently Relevant to Health Maintenance Results * Mammo Screening Cad and Jair Bilateral (07/13/2023 10:12 AM EDT) [employer] Signature WORKSTATION ID [id number] DH RAD Anatomical Region Laterality Modality Breast Bilateral Mammography Impressions 07/13/2023 10:23 AM EDT No mammographic evidence of malignancy. Routine annual screening mammography is recommended. FINAL ASSESSMENT: BI-RADS Category 2: Benign Findings * ??Regular screening mammograms starting at age 40 reduces the risk of from breast cancer. * ??Yearly screening provides the most benefit. ??Women should discuss with their provider their preferred breast cancer screening schedule. * ??Women should report any breast changes to a health care provider right away. * ??Some women, because of their personal history of breast cancer, family history, a genetic tendency, or other factors, should be screened with annual breast MRI as well as with mammograms. Thank you for letting us participate in the care of this patient. ??If you are a health care provider and have any questions regarding this report, please contact the number below. ??For patients who have questions please contact the health career consultant that requested your imaging first. ? Narrative 07/13/2023 10:23 AM EDT EXAMINATION: MAMMO SCREENING CAD AND JAIR BILATERAL REASON FOR EXAM: Screening; personal history of right breast cancer treated with lumpectomy and radiation starting 2014. TECHNIQUE: CC and MLO views were obtained of BOTH breasts. 2D and 3D tomosynthesis images were obtained. Computer aided detection was used. COMPARISON: Comparison was made to the prior relevant examinations. BREAST DENSITY: There are scattered areas of fibroglandular density. FINDINGS: Stable postsurgical change in the right breast noted. There are no suspicious microcalcifications, masses, or areas of distortion. Stable appearance. Ankit Vera MD IMG MAMMO ORDERABLES * DXA Central Spine, Hip, and/or Whole [...] sheet and do not have access to ESunrise, please contact Radiology Director Of Learning at [phone] Thursday thru Thursday 8am-4pm. ? Bone Density Report ? Name: ?Flor Lema Age: ? 71 Sex: ? Female Ethnicity: ? White Date of : 1950 Exam Date: June 17, 2021 Accession number: [id number] Bone Density: Region ? BMD ?T-score ??Z-score [...] have questions please contact the health career consultant that requested your imaging first. ? Narrative 06/17/2021 4:36 PM EDT EXAMINATION: DXA [...] BMD measurements and plots are available in EBackplaneunder the imaging tab. Paper copies will be sent to providers without BlueKite access.If you have received this report without the data sheet and do not haveaccess to BlueKite, please contact Radiology Director Of Learning at [phone] Thursday thruFriday 8am-4pm. Bone Density Report Name: Flor Lema Age: 71 Sex: Female Ethnicity: White Date of : 1950 Exam Date: June 17, 2021 Accession number: [id number] Bone Density: Region BMD T-score Z-score AP [...] who have questions please contactthe health career consultant that requested your imaging first. Kamini Castorena V, LIANNA IMG DEXA ORDER DANIEL * COLONOSCOPY (05/13/2017 12:52 PM EST) COLONOSCOPY [facility] Endoscopy Procedure Date: 05/13/2017 12:52 PM ? Patient Name: Flor Lema ? Date of : 1950 ? Age: 67 ? Order #: [id number] ? Instrument Name: [id number] ? Procedure: ? Colonoscopy Indications: ? Screening for colorectal malignant ? neoplasm, personal history of breast ? cancer. Providers: ? Panda Yates, Hailee Morales ? MD Fuad, Jared Florez, ? Meter Installer And Remover, Dahiana Hernández RN Referring MD: ?Ankit Vera MD Medicines: ? Midazolam 3 mg IV, Fentanyl 150 ? micrograms IV Complications: ? No immediate complications. Procedure: ? Pre-Anesthesia Assessment: ? - Prior to the procedure, a History ? and Physical was performed, and ? patient medications, allergies and ? sensitivities were reviewed. The ? patient's tolerance of previous ? anesthesia was reviewed. ? - The risks and benefits of the ? procedure and the sedation options ? and risks were discussed with the ? patient. All questions were answered ? and informed consent was obtained. ? The procedure, indications, benefits, ? risks and alternatives were explained ? to the patient. Specifically ? discussed were potential ? complications including, but not ? limited to, bleeding, perforation, ? infection, missing a cancer, and ? adverse medication reactions. The ? patient was placed in the left ? lateral decubitus position, and a ? digital rectal exam was performed. ? The Colonoscope was inserted in the ? anus and under direct visualization, ? advanced to the terminal ileum, with ? identification of the appendiceal ? orifice and IC valve. Careful ? inspection was made as the ? colonoscope was withdrawn. The ? colonoscopy was performed with ease. ? The patient tolerated the procedure ? well. The quality of the bowel ? preparation was good. Scope ? withdrawal time was 10 minutes. ? Findings: ? The perianal and digital rectal examinations were ? normal. ? The entire examined colon appeared normal on direct ? and retroflexion views. The TI was intubated and ? normal. ? Moderate Sedation: ? I was present during the intraservice time as ? documented by the sedation RN. Impression: ?- The entire examined colon is normal ? on direct and retroflexion views. ? - No specimens collected. Recommendation: ?- Repeat colonoscopy in 5 years for ? surveillance. ? Attending Participation: ? I was present and participated during the entire ? procedure, including non-ojeda portions. ? Panda Yates, 05/13/2017 1:46:36 PM Number of Addenda: 0 Note Initiated On: 05/13/2017 12:52 PM PROVATION 05/13/2017 12:5 2 PM EST Ankit Vera MD GENERAL SURGICAL ORD ERABLES PROVATION from Last 3 Months or Most Recently Relevant to Health Maintenance Care Teams Store Host Relationship Specialty Start Date End Date Ankit Vera MD [address] [place] [address] PCP - General 02/05/10
--- OUTSIDE RECORDS SUMMARY | 2024-01-21 21:45 | XMS_ITS | Encounter Summary ---
Author Organization [facility] [place] [address] Care Team Providers Care Drapery Cutter Machine Name Role Phone Ankit Vera MD Primary Care Provider [phone] Encounter Details Date Type Department Care Team (Late st Contact Info) Description 02/28/2022 Orders Only Obstetrics [place] [address] Megan Forrester, RN Social History Tobacco Use Types Packs/Day Years [...] on filedocumented in this encounter Care Teams Drapery Cutter Machine Relationship Specialty Start Date End Date Ankit Vera MD [address] [address] PCP - General 02/05/10 documented as of this encounter
--- OUTSIDE RECORDS SUMMARY | 2024-01-21 21:45 | XMS_ITS | Encounter Summary ---
Author Organization [facility] [place] [address] Care Team Providers Care Hog Worker Name Role Phone Ankit Vera MD Primary Care Provider [phone] Encounter Details Date Type Department Care Team (Latest Contact Info) Description 05/20/2021 12:51 PM EST - 05/20/2021 11:59 PM EST Hospital Encounter Mammography[place] [address] Divya Boucher APRN [facility] OBSTET[place] [address] Encounter for screening mammogram for breast cancer Discharge Disposition: Home [...] MAMMO SCREENING CAD AND JAIR BILATERAL Routine 05/20/2021 1:09 PM EST Encounter for screening mammogram for breast cancer documented in this encounter Results * Mammo Screening Cad and Jair Bilateral (05/20/2021 1:09 PM EST) Anatomical Region Laterality Modality Breast Bilateral Mammography Narrative 05/21/2021 6:52 AM EST EXAMINATION: MAMMO SCREENING CAD AND JAIR BILATERAL REASON FOR EXAM: Screening. History of right breast cancer. TECHNIQUE: CC and MLO views were obtained of both breasts. Computer aided detection was used. 3D tomosynthesis images were obtained in addition to 2D images. COMPARISON: The study is compared with prior images. FINDINGS: Breast density: There are scattered areas of fibroglandular density There are no suspicious microcalcifications, masses, or areas of distortion. There are post treatment changes in the right breast. CONCLUSION: No mammographic evidence of malignancy. RECOMMENDATION: Routine annual screening. BIRADS CATEGORY 2: BENIGN FINDINGS * ??Regular screening mammograms starting between age [...] Patients and health care providers should discuss the history of each patient to decide if earlier screening and/or breast [...] who have questions please contact the health rn homecare that requested your imaging first. ? Electronically signed by: Rupa Rodriges MD, [facility] ([phone]), at 05/21/2021 6:52 AM Divya Boucher APRN IMG MAMMO ORD ERABLES documented in this encounter Visit Diagnoses Diagnosis Encounter for screening mammogram for breast cancer documented in this encounter Care Teams Hog Worker Relationship Specialty Start Date End Date Ankit Vera MD [address] [place] [address] PCP - General 02/05/10 documented as of this encounter
--- OUTSIDE RECORDS SUMMARY | 2024-01-21 21:45 | XMS_ITS | Encounter Summary ---
[place] [address] Care Team Providers Care Records Specialist Name Role Phone Ankit Vera MD Primary Care Provider + [phone] Encounter Details Date Type Department Care Team (Latest Contact Info) Description 07/13/2023 9:32 AM EDT - 07/13/2023 11:59 PM EDT Hospital Encounter Mammography/[place] [address] Ankit Vera MD [address] [place] [address] Encounter for screening mammogram for breast cancer [...] Sig Dispensed Refills Start Date End Date lisinopriL (Zestril) 5 mg tablet Take 5 mg by mouth daily. 07/08/2023 naltrexone HCl (NALTREXONE ORAL) Take 3 mg [...] hours as needed for Pain. valACYclovir (Valtrex) 500 mg tablet Take 1 tablet by mouth daily. 90 tablet 3 07/13/2023 08/19/2023 clobetasoL (Temovate) 0.05 % Ointment Apply scant [...] and Jair Bilateral (07/13/2023 10:12 AM EDT) WORKSTATION ID [id number] 2 DH RAD Anatomical Region Laterality Modality [...] who have questions please contact the health child day care center worker that requested your imaging first. ? Electronically signed by: Batsheva Wharton MD, [facility] ?? ([phone]), at 07/13/2023 10:23 AM Narrative 07/13/2023 10:23 AM EDT EXAMINATION: MAMMO [...] appearance. Ankit Vera MD IMG MAMMO ORDERABLES documented in this encounter Visit Diagnoses Diagnosis Encounter for screening mammogram for breast cancer documented in this encounter Care Teams Records Specialist Relationship Specialty Start Date End Date Ankit Vera MD [address] [place] [address] PCP - General 02/05/10 documented as of this encounter
--- OUTSIDE RECORDS SUMMARY | 2024-01-21 21:45 | XMS_ITS | Encounter Summary ---
[place] [address] Care Team Providers Care Preschool Teacher'S Assistant Name Role Phone Ankit Vera MD Primary Care Provider + [phone] Encounter Details Date Type Department Care Team (Latest Contact Info) Description 07/13/2023 Travel Social History Tobacco Use Types Packs/Day [...] on filedocumented in this encounter Care Teams Preschool Teacher'S Assistant Relationship Specialty Start Date End Date Ankit Vera MD [address] [address] PCP - General 02/05/10 documented as of this encounter
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
--- OUTSIDE RECORDS SUMMARY | 2024-01-21 21:46 | XMS_ITS | Encounter Summary ---
Author Organization [facility] [place] [address] Care Team Providers Care Supervisor Glycerin Name Role Phone Ankit Vera MD Primary Care Provider + [phone] Reason for Visit * Reason Comments Annual Exam Encounter Details Date Type Department Care Team (Late st Contact Info) Description 08/27/2018 4:00 PM EDT Office Visit Obstetrics [place] [phone] Jovita Jin MD [facility] DR OBSTETRICS [place] [address] History of breast cancer; Lichen sclerosus; Elevated blood pressure reading with diagnosis of hypertension Social History Tobacco Use Types Packs/Day Years [...] Sign Reading Time Taken Comments Blood Pressure 140/92 08/27/2018 3:35 PM EDT Pulse 84 08/27/2018 3:35 PM EDT Temperature 36.5 ??C (97.7 ??F) 08/27/2018 3:35 PM ED T Respiratory Rate 22 08/27/2018 3:35 PM EDT Oxygen Saturation 98% 08/27/2018 3:35 PM EDT Inhaled Oxygen Concentration - - Weight 69.5 kg (153 lb 3.2 oz) 08/27/2018 3:35 P M EDT Height 160 cm (5' 3) 08/27/2018 3:35 PM EDT Body Mass Index 27.14 08/27/2018 3:35 PM EDT documented in this encounter Progress Notes * Jovita Jin - 08/27/2018 4:00 PM EDT Dress Fitter Follow-up Visit Flor Rollins Toreydiamante Rollins [id number] 08/27/2018 Ankit Vera MD Reason for Visit: Flor is a 68 y.o. postmenopausal female who presents for follow-up of lichen sclerosis, annual exam She stopped taking the naltrexone for a few weeks and had a flare of lichen sclerosis. She only stopped to see if it related to her headaches (which it didn't). She uses the clobetasol once weekly. No itch or vulvar irritation noted. No changes in health or life events since our last visit. No new sexual partner. Last mammo today, read pending, repeat in one year recommended due to history of breast cancer. Shehad a breast exam with heme/onc in May (every six month schedule). No LMP recorded. Patient is postmenopausal. Menopause age 56. Had regular menses. OCPs for two years followed by IUDs. from her . Last pap at age 65, normal and discontinue screening per guidelines. Hx abnormal pap smear around age late 20s but never needed colposcopy or conization, no STDs OB History 5 Para 2 Term 2 AB 3 Living 2 SAB 3 TAB Ectopic Multiple Live Births 2 # Outc Date GA Lbr Robert/2nd Wgt Sex Del Anes PTL Lv 1 Term 1969 M Vag-Spont Living 2 Term 1991 M LWR SEG HARE Living 3 1993 4 1993 5 1993 Past Medical History: Diagnosis Date ??? Breast cancer of upper-inner quadrant of right female breast ??? Breast cancer of upper-inner quadrant of right female breast ??? Headache(784.0) ??? Hypertension noted in visit on 05/06/17 Past Surgical History: Procedure Laterality Date ??? BREAST BIOPSY Right 2015 ??? BREAST LUMPECTOMY Right 2014 ??? SECTION Bilateral 08/1991 ??? PRO COLONOSCOPY, DIAGNOSTIC N/A 05/13/2017 COLONOSCOPY, DIAGNOSTIC performed by Panda Yates MD at [facility] ??? WISDOM TOOTH EXTRACTION 1967 Family History Problem Relation Age of Onset ??? Lung Cancer Mother age 69 ??? Diabetes Father ??? Ovarian Cancer Neg Hx ??? Uterine Cancer Neg Hx ??? Pancreatic Cancer Neg Hx ??? Colorectal Cancer Neg Hx ??? Breast Cancer Neg Hx Social History Socioeconomic History ??? Marital status: Spouse name: None ??? Number of children: None ??? Years of education: None ??? Highest education level: None Occupational History ??? None Social Needs ??? Financial resource strain: None ??? Food insecurity: Worry: None Inability: None ??? Transportation needs: Medical: None Non-medical: None Tobacco Use ??? Smoking status: Former Smoker Types: Cigarettes Last attempt to quit: 07/30/1973 Years since quittin.1 ??? Smokeless tobacco: Never Used ??? Tobacco comment: smoked a little in college Substance and Sexual Activity ??? Alcohol use: No Comment: Once a month ??? Drug use: No ??? Sexual activity: Not Currently Partners: Male Lifestyle ??? Physical activity: Days per week: None Minutes per session: None ??? Stress: None Relationships ??? Social connections: Talks on phone: None Gets together: None Attends quaker service: None Active member of club or organization: None Attends meetings of clubs or organizations: None Relationship status: None ??? Intimate partner violence: Fear of current or ex partner: None Emotionally abused: None Physically abused: None Forced sexual activity: None Other Topics Concern ??? None Social History [...] medication list which includes the following prescription(s): clobetasol, naltrexone hcl, homeopathic drugs, b complex vitamins, vitamin a, ascorbic acid (vitamin c), cholecalciferol (vitamin d3), and ibuprofen. Allergies Allergen Reactions ??? Darvon [Propoxyphene] GI upset ROS: no vaginal bleeding, no vaginal or vulvar itch, no recent health problems Physical Exam BP (!) 140/92 (BP Location (NBP): Right arm, Patient Position: Sitting) Pulse 84 Temp 36.5 ??C (97.7 ??F) (Oral) Resp 22 Ht 160 cm (5' 3) Wt 69.5 kg (153 lb 3.2 oz) SpO2 98% BMI 27.14 kg/m?? Physical Exam Constitutional: She is oriented to person, place, and time. She appears well- developed and well-nourished. HENT: Head: Normocephalic and atraumatic. Neck: No thyromegaly present. Cardiovascular: Normal rate and regular rhythm. Pulmonary/Chest: Effort normal and breath sounds normal. Abdominal: Soft. She exhibits no mass. There is no tenderness. There is no rebound and no guarding. Neurological: She is alert and oriented to person, place, and time. Skin: Skin is warm and dry. Psychiatric: She has a normal mood and affect. Pelvic: External genitalia normal, resolution of white scarring and minimal agglutination of labor minora posteriorly, no white scarring in the jaclyn- clitororal area or perianal. No suspicious lesions. Neuro: grossly intact Assessment: Flor is a 68 y.o. postmenopausal female who presents for follow-up of lichen sclerosis. Plan: - Continues to use clobetasol weekly in addition to oral compounded naltrexone. No active disease currently. Reviewed that naltrexone is off label and not recommended LS however I am glad she is using the clobetasol as well since her last visit. She will call for any flare in symptoms. - HTN again noted today, discussed weight loss/exercise. Recommended pharmacologic treatment in addition to her homeopathic remedy. She will consider and follows with a local PCP. - Mammogram pending, will release result on [facility] Return visit in one year for annual. The patient was discussed with Dr. Hightower. JOVITA JIN MD, PGY4 * Aziza Hightower MD - 08/27/2018 4:00 PM EDT This patient's case was discussed at the time of the visit or immediately after the visit. The assessment and plan were formulated in discussion with me and I agree with them as documented. I have reviewed the history, physical exam, assessment and plan with the resident. Aziza Hightower MD documented in this encounter Plan of Treatment Not on file documented as of this encounter Visit Diagnoses Diagnosis History of breast cancer Personal history of malignant neoplasm of breast Lichen sclerosus Circumscribed scleroderma Elevated blood pressure reading with diagnosis of hypertension documented in this encounter Care Teams Supervisor Glycerin Relationship Specialty Start Date End Date Ankit Vera MD [address] [address] PCP - General 02/05/10 documented as of this encounter
--- OUTSIDE RECORDS SUMMARY | 2024-01-21 21:46 | XMS_ITS | Encounter Summary ---
Author Organization [facility] [place] [address] Care Team Providers Care Equipment Maint Tech Name Role Phone Ankit Vera MD Primary Care Provider + [phone] Reason for Visit * Reason Comments Breast Cancer Encounter Details Date Type Department Care Team (Late st Contact Info) Description 04/06/2017 2:30 PM EST Office Visit Hematology/Oncology at [address] [phone] Alex Nino MD [address] [place] [phone] Malignant neoplasm of upper-inner quadrant of right [...] Sign Reading Time Taken Comments Blood Pressure 146/78 04/06/2017 2:21 PM EST Pulse 81 04/06/2017 2:21 PM EST Temperature 36.8 ??C (98.2 ??F) 04/06/2017 2:21 PM ES T Respiratory Rate 16 04/06/2017 2:21 PM EST Oxygen Saturation 100% 04/06/2017 2:21 PM EST Inhaled Oxygen Concentration - - Weight 70.3 kg (155 lb) 04/06/2017 2:21 PM EST Height 158.5 cm (5' 2.4) 04/06/2017 2:21 PM EST copied Body Mass Index 27.99 04/06/2017 2:21 PM EST documented in this encounter Progress Notes * Alex Nino MD - 04/06/2017 2:30 PM EST Diagnosis: 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 The sentinel node was negative. (T1cN 0) Subjective: Flor comes in today for her 2-1/2 year follow-up on her breast cancer. She is doing exceptionally well with no new lumps or bumps. She has no particular bone pain and is feeling well overall. She does tell me she is no longer going to be able to see her surgeon at [facility] for her mammograms as that surgeon is retiring. We talked about setting up her mammography through her [facility] appointments of [facility] is already discussed that with them and will make sure and do that. We have recommendedyearly routine mammograms. REVIEW OF SYSTEMS: Is otherwise negative. Past medical history and social history are reviewed. Her 25-year-old son has moved in with her there is been some challenges with that overall things are going okay. Current Outpatient Prescriptions on File Prior to Visit Medication Sig Dispense Refill ??? clobetasol (TEMOVATE) 0.05 % Cream Apply topically nightly. Apply pea-sized amount every other night until the next clinic visit 30 g 3 ??? HOMEOPATHIC DRUGS (RAUWOLFIA ORAL) Take by mouth. Patient takes this for blood pressure. ??? b complex vitamins Capsule Take 1 capsule by mouth daily. ??? vitamin A (AQUASOL) 10,000 unit Capsule Take 10,000 Units by mouth daily. ??? ascorbic acid (VITAMIN C) 1,000 mg Tablet Take 1,000 mg by mouth 3 times daily. ??? Cholecalciferol, Vitamin D3, (VITAMIN D-3) 2,000 unit Capsule Take 5,000 Units by mouth daily. ??? UNABLE TO FIND Calcium with magnesium 1200/600mg daily ??? ibuprofen (ADVIL;MOTRIN) 200 mg Tablet Take 200 mg by mouth every 6 hours as needed for Pain. No current facility-administered medications on file prior to visit. REIVEW OF SYSTEMS: Otherwise negative. No lumps or bumps. No new skin problems or rashes. No bone pain or anything in particular. She did injure her foot a few months ago stepping wrong and had some bruising there but that has subtly gotten better. Review of Systems Constitutional: Negative for fever, chills, activity change, fatigue and unexpected weight change. HENT: Negative for sore throat, mouth sores and trouble swallowing. Eyes: Negative. Respiratory: Negative for cough, shortness of breath and wheezing. Cardiovascular: Negative for chest pain, palpitations and leg swelling. Gastrointestinal: Negative for nausea, vomiting, abdominal pain, diarrhea, constipation and abdominal distention. Genitourinary: Negative for dysuria and difficulty urinating. Musculoskeletal: Negative. Skin: Negative. Neurological: Negative. Hematological: Negative for adenopathy. BP 146/78 (Patient Position: Sitting) Pulse 81 Temp 36.8 ??C (98.2 ??F) (Oral) Resp 16 Ht 158.5 cm (5' 2.4) Comment: copied Wt 70.3 kg (155 lb) SpO2 100% BMI 27.99 kg/m2 Head: Normocephalic, without obvious abnormality, atraumatic Eyes: PERRL, conjunctiva/corneas clear, EOM's intact, fundi benign, both eyes Ears: Normal TM's and external ear canals, both ears Nose: Nares normal, septum midline, mucosa normal, no drainage or sinus tenderness Throat: Lips, mucosa, and tongue normal; teeth and gums normal Neck: Supple, symmetrical, trachea midline, no adenopathy, thyroid: not enlarged, symmetric, no tenderness/mass/nodules, no carotid bruit or JVD Back: Symmetric, no curvature, ROM normal, no CVA tenderness Lungs: Clear to auscultation bilaterally, respirations unlabored Chest Wall: No tenderness or deformity Patient's breasts are examined and I can't appreciate a massin either breast and both axilla are clear Heart: Regular rate and rhythm, S1, S2 normal, no murmur, rub or gallop Abdomen: Soft, non-tender, bowel sounds active all four quadrants, no masses, no organomegaly Extremities: Extremities normal, atraumatic, no cyanosis or edema Pulses: 2+ and symmetric Skin: Skin color, texture, turgor normal, no rashes or lesions Lymph nodes: Cervical, supraclavicular, and axillary nodes normal Neurologic: Normal Laboratory data is reviewed. White count is 5.9 hemoglobin 14.7 hematocrit 45.7 platelets 235,000. CMP showed normal electrolytes a creatinine of 1.01 random glucose of 123 calcium 9.0 ALP of 79 liver tests are otherwise normal. Assessment/plan: Flor is doing exceptionally well and has no evidence of recurrent breast cancer now 2-1/2 years after her initial diagnosis. She is elected not to take an aromatase inhibitor or tamoxifen but fortunately is at low risk for recurrence. She will go ahead and set up her yearly mammograms with the GYNdoctors in [facility] and I suggested she have her mammograms done when she goes for her appointments there so will only involve one trip. We will see her back in 6 months time with lab sooner if there is issues in the interim. documented in this encounter Plan of Treatment Not on file documented as of this encounter Procedures Procedure Name Priority Date/Time Associated Diagnosis Comments LAB SCAN 04/06/2017 12:00 AM EST documented in this encounter Results * SCAN DOC: LAB (04/06/2017 12:00 AM EST) Narrative 04/06/2017 12:00 AM EST Ordered by an unspecified provider. Scanning Provider MEDIA MGR SCAN EXT O RDR/RSLT documented in this encounter Visit Diagnoses Diagnosis Malignant neoplasm of upper-inner quadrant of right breast in female, estrogen receptor positive documented in this encounter Care Teams Equipment Maint Tech Relationship Specialty Start Date End Date Ankit Vera MD [address] [address] PCP - General 02/05/10 documented as of this encounter
--- OUTSIDE RECORDS SUMMARY | 2024-01-21 21:46 | XMS_ITS | Encounter Summary ---
Author Organization [facility] [place] [address] Care Team Providers Care Curtain Inspector Name Role Phone Ankit Vera MD Primary Care Provider [phone] Reason for Visit * Reason Comments Breast Cancer Encounter Details Date Type Department Care Team (Late st Contact Info) Description 02/15/2015 1:30 PM EST Office Visit Hematology/Oncology at [address] [phone] Alex Nino MD [address] [place] [address] Breast cancer of upper-inner quadrant of right female breast Social History Tobacco Use Types Packs/Day Years [...] Sign Reading Time Taken Comments Blood Pressure 133/75 02/15/2015 1:37 PM EST Pulse 71 02/15/2015 1:37 PM EST Temperature 36.4 ??C (97.5 ??F) 02/15/2015 1:37 PM ES T Respiratory Rate 18 02/15/2015 1:37 PM EST Oxygen Saturation 100% 02/15/2015 1:37 PM EST Inhaled Oxygen Concentration - - Weight 74.6 kg (164 lb 8 oz) 02/15/2015 1:37 PM EST Height 158.5 cm (5' 2.4) 02/15/2015 1:37 PM EST Body Mass Index 29.7 02/15/2015 1:37 PM EST documented in this encounter Progress Notes * Alex Nino MD - 02/15/2015 1:44 PM EST Diagnosis: 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 The sentinel node was negative. (T1cN 0) Subjective: Flor comes in today for followup. She had been having trouble making a decision on whether or not she would take any adjuvant treatment in regards to her breast cancer. She finally had decided she would probably take tamoxifen but wanted to delay it until after a trip she took. She got back from the trip and had decided at that point that it is not something she wanted to take. We went over things again and she clearly has a good understanding of things but simply does not want to take the medication. We went over things in detail. She is in a good prognostic group and chances are she is cured but there is some benefit to be gained by the medication. As noted, she understands that. Otherwise, she is doing well, really no problems. Review of systems is negative. She is doing well at the current time and really has no issues or problems. Medications 02/15/15 1415 Medication Sig Taking? HOMEOPATHIC DRUGS (RAUWOLFIA ORAL) Take by mouth. Patient takes this for blood pressure. Yes EMOLLIENT BASE (CREAM BASE TOP) Apply topically. Jeans Cream. Apply to area of radiation twice a day but no less than 2 hours before a treatment. Yes b complex vitamins Capsule Take 1 capsule by mouth daily. Yes vitamin A (AQUASOL) 10,000 unit Capsule Take 10,000 Units by mouth daily. Yes ascorbic acid (VITAMIN C) 1,000 mg Tablet Take 1,000 mg by mouth 3 times daily. Yes Cholecalciferol, Vitamin D3, (VITAMIN D-3) 2,000 unit Capsule Take 5,000 Units by mouth daily. Yes UNABLE TO FIND Calcium with magnesium 1200/600mg daily Yes ibuprofen (ADVIL;MOTRIN) 200 mg Tablet Take 200 mg by mouth every 6 hours as needed for Pain. Yes tamoxifen (NOLVADEX) 20 mg Tablet Take 1 tablet by mouth daily. No Review of Systems Constitutional: Negative for fever, [...] Neurological: Negative. Hematological: Negative for adenopathy. BP 133/75 mmHg Pulse 71 Temp(Src) 36.4 ??C (97.5 ??F) (Oral) Resp 18 Ht 158.5 cm (5' 2.4) Wt 74.617 kg (164 lb 8 oz) BMI 29.70 kg/m2 SpO2 100% Head: Normocephalic, without obvious abnormality, atraumatic Eyes: [...] and axillary nodes normal Neurologic: Normal Laboratory is reviewed. Creatinine is 1.04. Alkaline phosphatase is 75. Electrolytes normal. CBC shows a white count of 6.5, hemoglobin 13.8, hematocrit 41.4, and a platelet count of 225. Assessment/Plan: Flor is doing well and has no evidence of recurrent breast cancer. She has made a decision not to take either an aromatase inhibitor because of the risks of osteoporosis even though that is treatable or take tamoxifen because of the reading she has been doing. She is making an informed consent and in that regard I feel comfortable with the situation. She will have a slightly higher risk of reoccurrence without the medication. We will see her back in six months' time with lab and she will let us know if there are issues or problems in the interim. documented in this encounter Plan of Treatment Not on file documented as of this encounter Procedures Procedure Name Priority Date/Time Associated Diagnosis Comments LAB SCAN 09/05/2015 12:00 AM EDT documented in this encounter Results * SCAN DOC: LAB (09/05/2015 12:00 AM EDT) Scanning Provider MEDIA MGR SCAN EXT O RDR/RSLT documented in this encounter Visit Diagnoses Diagnosis Breast cancer of upper-inner quadrant of right female breast documented in this encounter Care Teams Curtain Inspector Relationship Specialty Start Date End Date Ankti Vera MD [address] [place] [address] PCP - General 02/05/10 documented as of this encounter
--- OUTSIDE RECORDS SUMMARY | 2024-01-21 21:46 | XMS_ITS | Encounter Summary ---
Author Organization [facility] [place] [address] Care Team Providers Care Literary Writer Name Role Phone Ankit Vera MD Primary Care Provider + [phone] Encounter Details Date Type Department Care Team (Late st Contact Info) Description 10/17/2014 Orders Only Radiation Oncology at [address] [phone] Estefania Marte MD [facility] DR RADIATION [place] [address] Social History Tobacco Use Types Packs/Day Years Used Date Smoking Tobacco: Former Smokeless Tobacco: Never Comments:smoked a little in [...] Procedure Name Priority Date/Time Associated Diagnosis Comments FILM LIBRARY STORAGE ONLY RADIATION ONCOLOGY STUDIES Routine 10/17/2014 3:46 PM EDT documented in this encounter Results * Film Library- Storage Only Radiation Oncology Studies (10/17/2014 3:46 PM EDT) Anatomical Region Laterality Modality Other 10/17/2014 3:46 PM EDT Narrative 10/17/2014 3:47 PM EDT This is a Non-reportable exam Procedure Note JOSE ALFREDO, UNSIGNED REPORT - 10/17/2014 This is a Non-reportable exam Estefania Marte MD [facility] FILM LIBRARY ORD ERABLES documented in this encounter Visit Diagnoses Not on filedocumented in this encounter Care Teams Literary Writer Relationship Specialty Start Date End Date Ankit Vera MD [address] [address] PCP - General 02/05/10 documented as of this encounter
--- OUTSIDE RECORDS SUMMARY | 2024-01-21 21:46 | XMS_ITS | Encounter Summary ---
Author Organization [facility] [place] [address] Care Team Providers Care Insurance Claim Auditor Name Role Phone Ankit Vera MD Primary Care Provider [phone] Encounter Details Date Type Department Care Team (Latest Contact Info) Description 05/13/2017 12:36 PM EST - 05/13/2017 2:31 PM EST Hospital En[place] [address] Enrico Bryant MD [facility] [place] [address] Discharge Disposition: Home Social History Tobacco Use [...] Sign Reading Time Taken Comments Blood Pressure 153/80 05/13/2017 2:20 PM EST Pulse 57 05/13/2017 1:48 PM EST Temperature - - Respiratory Rate 16 05/13/2017 1:50 PM EST Oxygen Saturation 97% 05/13/2017 2:20 PM EST Inhaled Oxygen Concentration - - Weight - - Height - - Body Mass Index - - documented in this encounter Discharge Instructions * Discharge Instructions* Dahiana Hernández RN - 05/13/2017 2:25 PM EST Colonoscopy What to expect after the procedure You may feel a little more gassy or bloated than usual. This is normal. You should expect the return of normal bowel function in the 2 to 3 days. Activity Because of the sedation that you received your judgement and reaction time are effected ?? Go home and rest quietly for the remainder of the day. You may resume your normal activities tomorrow. ?? Change from one position to the next slowly. You may lose your balance unexpectedly ?? Be careful on stairs, as you may be unsteady on your feet FOR THE NEXT 24 HRS ?? DO NOT DRIVE OR OPERATE ANY MACHINERY ?? DO NOT DRINK ALCOHOLIC BEVERAGES ?? DO NOT SIGN LEGAL DOCUMENTS ?? If you are a smoker: DO NOT SMOKE WHILE YOU ARE ALONE Diet ?? Start by eating small portions of foods that ordinarily will not upset your stomach . Avoid gas producing foods for the next few days ?? Be gentle with what you choose to start with ?? Drink plenty of fluids ( unless your doctor has told you not to). IV SITE-- slight redness, or tenderness is normal. You can use warm compresses if you become concerned. If the tenderness +/or redness increases or foul drainage and a red streak occurs, please contact your PCP immediately When shoud you call for help? Call 911 anytime you think you may need emergency care. For example If you pass out ( loss of consciousness) If you pass maroon or bloody stools If you have severe belly pain Call your doctor now or seek immediate medical care If your stools are black and tarlike If your stools have streaks of blood, but you did not have a biopsy or any polyps removed If you have belly pain, or your belly is swollen and firm If you vomit If you have a fever If you are very dizzy Watch closely for changes in your health, and be sure to contact your doctor if you have any problems Your doctor will let you know when you will need your next colonoscopy. The results of your test and your risk for colorectal cancer will help your doctor decide how often you need to be checked. Thursday-Thursday Same Day Endo [phone] 7a-8p Otherwise contact [phone] and ask to speak to the aboriginal education teacher sonogram technician Follow up care is a ojeda part of your treatment and safety. Be sure to make and go to all appointments, and call your doctor if you are having problems. Discharge instructions reviewed with patient who expresses understanding Colonoscopy What to expect after the procedure You may feel a little more gassy or bloated than usual. This is normal. You should expect the return of normal bowel function in the 2 to 3 days. Activity Because of the sedation that you received your judgement and reaction time are effected ?? Go home and rest quietly for the remainder of the day. You may resume your normal activities tomorrow. ?? Change from one position to the next slowly. You may lose your balance unexpectedly ?? Be careful on stairs, as you may be unsteady on your feet FOR THE NEXT 24 HRS ?? DO NOT DRIVE OR OPERATE ANY MACHINERY ?? DO NOT DRINK ALCOHOLIC BEVERAGES ?? DO NOT SIGN LEGAL DOCUMENTS ?? If you are a smoker: DO NOT SMOKE WHILE YOU ARE ALONE Diet ?? Start by eating small portions of foods that ordinarily will not upset your stomach . Avoid gas producing foods for the next few days ?? Be gentle with what you choose to start with ?? Drink plenty of fluids ( unless your doctor has told you not to). IV SITE-- slight redness, or tenderness is normal. You can use warm compresses if you become concerned. If the tenderness +/or redness increases or foul drainage and a red streak occurs, please contact your PCP immediately When shoud you call for help? Call 911 anytime you think you may need emergency care. For example If you pass out ( loss of consciousness) If you pass maroon or bloody stools If you have severe belly pain Call your doctor now or seek immediate medical care If your stools are black and tarlike If your stools have streaks of blood, but you did not have a biopsy or any polyps removed If you have belly pain, or your belly is swollen and firm If you vomit If you have a fever If you are very dizzy Watch closely for changes in your health, and be sure to contact your doctor if you have any problems Your doctor will let you know when you will need your next colonoscopy. The results of your test and your risk for colorectal cancer will help your doctor decide how often you need to be checked. Thursday-Thursday Same Day Endo [phone] 7a-8p Otherwise contact [phone] and ask to speak to the aboriginal education teacher sonogram technician Follow up care is a ojeda part of your treatment and safety. Be sure to make and go to all appointments, and call your doctor if you are having problems. Discharge instructions reviewed with patient who expresses understanding documented in this encounter Medications at Time of Discharge Medication Sig Dispensed Refills Start Date End Date HOMEOPATHIC DRUGS (RAUWOLFIA ORAL) Take by mouth. [...] every 6 hours as needed for Pain. clobetasol (TEMOVATE) 0.05 % Cream Apply topically nightly. Apply pea-sized amount every other night until the next clinic visit 30 g 3 03/05/2017 07/16/2018 UNABLE TO FIND Calcium with magnesium 1200/600mg daily 11/30/2017 documented as of this encounter H&P Notes * Hailee Merida - 05/13/2017 1:06 PM EST Gastroenterology and Hepatology Pre-Procedure History and Physical Exam Procedure: Colonoscopy: Indication: Screening 67yo woman with PMH of breast cancer s/p lumpectomy, HTN, presenting for screening colo. No GI complaints or concerns, no changes in BMs. No family history of CRC. Past surgeries include lumpectomy for BrCa and C-sections Patient Active Problem List Diagnosis Code ??? 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 Elevated blood pressure reading with diagnosis of hypertension I10 EXAM: HEENT: Airway examined, oropharynx clear Mallampati Score: II (soft palate, uvula, fauces visible) LUNGS: Clear to auscultation HEART: Regular rate and rhythm, normal S1, S2 ABDOMEN: Normal bowel sounds, soft, non tender, non distended, A/P Proceed with the planned endoscopic procedure. ASA 2 - Patient with mild systemic disease with no functional limitations Sedation Plan: moderate (conscious sedation) Risks and benefits of the procedure explained to the patient. Consent signed. Hailee Merida MD Gastroenterology Fellow #[id number] documented in this encounter Miscellaneous Notes * Op Note - Panda Yates MD - 05/13/2017 1:47 PM EST [facility] Operative Note Patient Name: Flor Lema : [id number] MR#: [id number] Case Date: 05/13/2017 Surgeon: Surgeon(s) and Role: * Panda Yates MD - Primary Preoperative diagnosis: screening Postoperative diagnosis: * No post-op diagnosis entered * Procedure(s) (LRB): COLONOSCOPY, DIAGNOSTIC (N/A) Please see Provation for full procedure note. Panda Yates MD 05/13/2017 documented in this encounter Plan of Treatment Not on file documented as of this encounter Procedures Procedure Name Priority Date/Time Associated Diagnosis Comments COLONOSCOPY, DIAGNOSTIC (WRVU 3.26) 05/13/2017 1:17 PM EST screening COLONOSCOPY Routine 05/13/2017 12:52 PM EST documented in this encounter Results * COLONOSCOPY (05/13/2017 12:52 PM EST) COLONOSCOPY [facility] Endoscopy Procedure Date: 05/13/2017 12:52 PM ? Patient Name: Flor Lema ? Date of : 1950 ? Age: 67 ? Order #: [id number] ? Instrument Name: [id number] ? Procedure: ? Colonoscopy Indications: ? Screening for colorectal malignant ? neoplasm, personal history of breast ? cancer. Providers: ? Hailee Blackman ? MD Fuad, Jared Florez, ? Production Line Welder, Dahiana Hernández RN Referring MD: ?Ankit Vera [...] Vera MD GENERAL SURGICAL ORD ERABLES PROVATION documented in this encounter Visit Diagnoses Not on filedocumented in this encounter Administered Medications Inactive Administered Medications - up to 3 most recent administrations Medication Order MAR Action Action Date Dose Rate Site lactated Ringers infusion 100 mL/hr, Intravenous, CONTINUOUS, Starting on Thu05/13/17 at 1315, Until Thu05/13/17 at 1632, Endoscopy (Day of Procedure) documented in this encounter Active and Recently Administered Medications Times are shown in EST. Continuous Medication Order 05/11/2017 05/12/2017 05/13/2017 lactated Ringers infusion 100 mL/hr, Intravenous, CONTINUOUS, Starting on Thu05/13/17 at 1315, Until Thu05/13/17 at 1632, Endoscopy (Day of Procedure) 1315 (Due) PRN Medication Order 05/11/2017 05/12/2017 05/13/2017 fentaNYL 50 mcg/mL multi-dose injection (CANCELED) ONCE PRN, Starting on Thu05/13/17 at 1320, Until Thu05/13/17 at 1632, Intra-Operative (Intra-Procedure), Routine 1320 (Given - Provid er: Dahiana Hernández RN)1322 (Given - Provider: Dahiana Hernández RN)1325 (Given - Provider: Dahiana Hernández RN) midazolam (PF) (VERSED) 1 mg/mL multi-dose injection (CANCELED) ONCE PRN, Starting on Thu05/13/17 at 1320, Until Thu05/13/17 at 1632, Intra-Operative (Intra-Procedure), Routine 1320 (Given - Provid er: Dahiana Hernández RN)1323 (Given - Provider: Dahiana Hernández RN)1325 (Given - Provider: Dahiana Hernández RN) documented in this encounter Care Teams Insurance Claim Auditor Relationship Specialty Start Date End Date Ankit Vera MD [address] [address] PCP - General 02/05/10 documented as of this encounter
--- OUTSIDE RECORDS SUMMARY | 2024-01-21 21:46 | XMS_ITS | Encounter Summary ---
Author Organization [facility] [place] [address] Care Team Providers Care Yarn Twister Name Role Phone Ankit Vera MD Primary Care Provider + [phone] Encounter Details Date Type Department Care Team ([facility] Contact Info) Description 09/28/2014 External [place] [phone] Provider, Scanning Social History Tobacco Use Types Packs/Day Years [...] Procedure Name Priority Date/Time Associated Diagnosis Comments SURGICAL PATHOLOGY SCAN Routine 09/28/2014 documented in this encounter Results * Scan Doc: Surgical Pathology (09/28/2014) Alex Nino MD MEDIA MGR SCAN EXT O RDR/RSLT documented in this encounter Visit Diagnoses Not on filedocumented in this encounter Care Teams Yarn Twister Relationship Specialty Start Date End Date Ankit Vera MD [address] [address] PCP - General 02/05/10 documented as of this encounter
--- OUTSIDE RECORDS SUMMARY | 2024-01-21 21:46 | XMS_ITS | Encounter Summary ---
Author Organization [facility] [place] [address] Care Team Providers Care Chief Solution Architect Name Role Phone Ankit Vera MD Primary Care Provider [phone] Encounter Details Date Type Department Care Team (Late st Contact Info) Description 12/02/2018 1:30 PM EDT Office Visit Hematology/Oncology at [address] [phone] Mau Baker MD [facility] DR [place] [address] Malignant neoplasm of upper-inner quadrant of right [...] Sign Reading Time Taken Comments Blood Pressure 125/65 12/02/2018 1:36 PM EDT Pulse 62 12/02/2018 1:36 PM EDT Temperature 36.7 ??C (98.1 ??F) 12/02/2018 1:36 PM ED T Respiratory Rate 18 12/02/2018 1:36 PM EDT Oxygen Saturation 100% 12/02/2018 1:36 PM EDT Inhaled Oxygen Concentration - - Weight 73 kg (161 lb) 12/02/2018 1:36 PM EDT Height 158.5 cm (5' 2.4) 12/02/2018 1:36 PM EDT copied Body Mass Index 29.07 12/02/2018 1:36 PM EDT documented in this encounter Progress Notes * Mau Baker MD - 12/02/2018 1:30 PM EDT Subjective: Patient ID: Flor Lema is a 68 y.o. female. HPI The patient is a 68-year-old female who returns to the [facility]. I am meeting her forthe first time. Right breast cancer 09/27 1.3 cm, node-negative ER positive, ID positive, HER-2/zayda negative Partial mastectomy Complete radiation therapy 11/28 Decline hormonal therapy Last mammogram -09/01 The patient continues to do quite well. She is exercising quite a bit. 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 She has not noted any lumps or bumps. No new focal pains. Energy is excellent. She has no complaints. She does confirm she does not want to take any hormonal therapy. Patient Active Problem List Diagnosis Code ??? 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 Elevated blood pressure reading with diagnosis of hypertension I10 ??? Hypertension I10 Current Outpatient Medications: ??? clobetasol (TEMOVATE) 0.05 % Cream, Apply topically nightly. [...] and are negative. Objective: Physical Exam Constitutional: She is oriented to person, place, and time. She appears well- nourished. No distress. HENT: Mouth/Throat: No oropharyngeal exudate. Eyes: No scleral icterus. Cardiovascular: Normal rate, regular rhythm and normal heart sounds. Pulmonary/Chest: Effort normal and breath sounds normal. She has no wheezes. Abdominal: Soft. Bowel sounds are normal. She exhibits no mass. There is no tenderness. Musculoskeletal: She exhibits no edema. Lymphadenopathy: She has no cervical adenopathy. Neurological: She is alert and oriented to person, place, and time. Skin: No rash noted. White count 4.9, hemoglobin 13.4, platelets 228 Creatinine 0.89, alk phos 70 Assessment and Plan: 68-year-old female who is now 4 years out from resection of a stage I right- sided breast cancer. She did get her surgery and radiation therapy but declined hormonal therapy. There are no signs of local or systemic recurrence and overall she seems to be doing well. I did again talk with her about the rationale for hormonal therapy including decreasing risks of recurrence as well as decreasing a second primary. She confirms she does not want to take any hormonaltherapy. She will continue her yearly mammograms. I will see her back in 6 months. Once she gets up to 5 years we will turn her back to her primary care doctor. documented in this encounter Plan of Treatment Not on file documented as of this encounter Visit Diagnoses Diagnosis Malignant neoplasm of upper-inner quadrant of right breast in female, estrogen receptor positive documented in this encounter Care Teams Chief Solution Architect Relationship Specialty Start Date End Date Ankit Vera MD [address] [place] [address] PCP - General 02/05/10 documented as of this encounter
--- OUTSIDE RECORDS SUMMARY | 2024-01-21 21:46 | XMS_ITS | Encounter Summary ---
[facility] [place] [address] Care Team Providers Care Director Alumni Relations Name Role Phone Ankit Vera MD Primary Care Provider + [phone] Encounter Details Date Type Department Care Team (Late st Contact Info) Description 05/31/2019 Telephone Hematology/Oncology at [address] [phone] Leyla Gamino Social History Tobacco Use Types Packs/Day Years [...] encounter Miscellaneous Notes * Telephone Encounter - Leyla Gamino - 05/31/2019 9:59 AM EDT Called Ria to inform them that due to COVID-19 concerns [facility] is rescheduling all follow up appointments at this time. Informed her that they will receive a new appointment in the mail. Asked if shehas any concerns related to their cancer care. she replied _NO___. All questions were answered and Ria is in agreement with this plan. documented in this encounter Plan of Treatment Not on file documented as of this encounter Visit Diagnoses Not on filedocumented in this encounter Care Teams Director Alumni Relations Relationship Specialty Start Date End Date Ankit Vera MD [address] [address] PCP - General 02/05/10 documented as of this encounter
--- OUTSIDE RECORDS SUMMARY | 2024-01-21 21:46 | XMS_ITS | Encounter Summary ---
Author Organization [facility] [place] [address] Care Team Providers Care Slot Editor Name Role Phone Ankit Vera MD Primary Care Provider + [phone] Reason for Visit * Reason Comments Radiation Treatment Encounter Details Date Type Department Care Team (Late st Contact Info) Description 11/14/2014 4:00 PM EDT Office Visit Radiation Oncology at [address] [phone] Estefania Marte MD [facility] [place] [address] Breast cancer, female, right Discharge Disposition: Home Social History Tobacco Use [...] Sign Reading Time Taken Comments Blood Pressure 148/94 11/14/2014 4:00 PM EDT Pulse 74 11/14/2014 4:00 PM EDT Temperature 36.7 ??C (98.1 ??F) 11/14/2014 4:00 PM ED T Respiratory Rate 16 11/14/2014 4:00 PM EDT Oxygen Saturation 99% 11/14/2014 4:00 PM EDT Inhaled Oxygen Concentration - - Weight - - Height - - Body Mass Index - - documented in this encounter Progress Notes * Estefania Marte MD - 11/14/2014 4:15 PM EDT DIAGNOSIS: Breast ca, R, IDC, low to focal intermed gr, ER+FL+, Mwx1xrg-, pT1c pN0, stage I. Hormonal tx to follow xrt. CURRENT TREATMENT DOSE: 31.92 Gy ANTICIPATED TOTAL DOSE: 42.56 Gy R breast, 52.56 Gy lumpectomy bed R breast Current # of xrt received: 12 Anticipated total # of xrt txs: 16 R breast, 20 lumpectomy bed R breast Evaluation of port verification films: Approved. For details, see electronic film record in [employer]. Changes in Medical Condition: A little pinkening w/in irrad'd area. Has had 1 episode of itchiness,relieved by spencer's cream. She has been contacted by Dr. Vera's office since I last saw her, & he will be prescribing med for her elevated bp. Pain?: No. Physical Exam: BP 148/94 mmHg Pulse 74 Temp(Src) 36.7 ??C (98.1 ??F) (Oral) Resp 16 SpO2 99% A&Ox3, in NAD. Mild erythema w/in irrad'd area, w/mild folliculitis in UIQ. Amb stable. Response to xrt: As expected. Irradiation Related Symptoms: Skin rxn. Treatment for Symptom Control: Spencer's cream. 1% htc rec'd for itchiness not relieved by Spencer's cream. Pain Management: Not needed. Recommendation on Continuing Course of xrt: Cont. She will bring in the med that Dr. Vera rxs for her bp. documented in this encounter Plan of Treatment Not on file documented as of this encounter Visit Diagnoses Diagnosis Breast cancer, female, right documented in this encounter Care Teams Slot Editor Relationship Specialty Start Date End Date Ankit Vera MD [address] [place] [address] PCP - General 02/05/10 documented as of this encounter
--- OUTSIDE RECORDS SUMMARY | 2024-01-21 21:46 | XMS_ITS | Encounter Summary ---
[facility] [place] [address] Care Team Providers Care Director Export Name Role Phone Ankit Vera MD Primary Care Provider + [phone] Encounter Details Date Type Department Care Team (Late st Contact Info) Description 10/31/2014 Telephone Radiation Oncology at [address] [phone] Heavenly Peterson RN Social History Tobacco Use Types Packs/Day [...] encounter Miscellaneous Notes * Telephone Encounter - Heavenly Peterson RN - 10/31/2014 5:16 PM EDT Telephone call to Dr. Ankit Vera to report patient's elevated BP readings here in clinic. I left a voice message that today's reading was BP 156/93 HR 76, on 10/05/14 BP 162/86, HR 81 and on 09/07,BP 141/90, HR 82. I left our office contact information as well. documented in this encounter Plan of Treatment Not on file documented as of this encounter Visit Diagnoses Not on filedocumented in this encounter Care Teams Director Export Relationship Specialty Start Date End Date Ankit Vera MD [address] [address] PCP - General 02/05/10 documented as of this encounter
--- OUTSIDE RECORDS SUMMARY | 2024-01-21 21:46 | XMS_ITS | Encounter Summary ---
Author Organization Formerly [place] [address] Care Team Providers Care Rn Clinical Coordinator Name Role Phone Ankit Vera MD Primary Care Provider + [phone] Reason for Visit * Reason Comments Breast Cancer Encounter Details Date Type Department Care Team (Late st Contact Info) Description 09/07/2014 3:00 PM EDT Office Visit Hematology/Oncology at [address] [phone] Argentina Nino MD [address] [place] [id number] Malignant neoplasm of female breast, right Discharge Disposition: Home Social History Tobacco [...] Sign Reading Time Taken Comments Blood Pressure 141/90 09/07/2014 2:37 PM EDT Pulse 82 09/07/2014 2:37 PM EDT Temperature 36.4 ??C (97.5 ??F) 09/07/2014 2:37 PM ED T Respiratory Rate 16 09/07/2014 2:37 PM EDT Oxygen Saturation 98% 09/07/2014 2:37 PM EDT Inhaled Oxygen Concentration - - Weight 75.3 kg (166 lb) 09/07/2014 2:37 PM EDT Height 158.5 cm (5' 2.4) 09/07/2014 2:37 PM EDT Body Mass Index 29.97 09/07/2014 2:37 PM EDT documented in this encounter Progress Notes * Argentina Nino MD - 09/07/2014 4:41 PM EDT Diagnosis: 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 She had an abnormality found on routine mammography. Ultrasound confirmed a suspicious area and she went up to [facility] to have it biopsied. She is scheduled for surgery in two weeks with plans on a lumpectomy and sentinel node dissection. The biopsy did show an ER strongly-positive, NE strongly-positive low-grade HER2/zayda-negative adenocarcinoma. The biopsy estimated the size approximately 1 cm with mammography showing a 0.7-cm area of abnormality. The patient has not had any MRIs but has had nothing on exam to suggest axillary involvement. She cannot feel the lump and it is not palpable. Additionally she has had a chest x-ray which is clear. We spent today talking about the treatment of breast cancer, both surgery, radiation, and chemotherapy, and the likely recommendations we will make for an estrogen frida, assuming no untoward prognostic features are found. We also discussed Oncotype DX and its utility if there is a question regarding potential benefits for chemotherapy and also what the indications for chemotherapy versus hormone therapy alone would be. I believe all of her questions were answered. Past Medical History Diagnosis Date ??? Headache(784.0) ??? Breast cancer Past Surgical History Procedure Laterality Date ??? Turney tooth extraction 1966 ??? section Bilateral 08/1991 ??? Breast biopsy 2014 Allergies Allergen Reactions ??? Darvon [Propoxyphene] GI upset Medications 09/07/14 1640 Medication Sig Taking? b complex vitamins Capsule Take 1 capsule [...] 6 hours as needed for Pain. Yes Family History Problem Relation Age of Onset ??? Lung Cancer Mother age 69 ??? Breast Cancer Maternal Aunt maternal great aunt History Social History ??? Marital Status: Spouse Name: N/A Number of Children: N/A ??? Years of Education: N/A Occupational History ??? Not on file. Social History Main Topics ??? Smoking status: Former Smoker ??? Smokeless tobacco: Never Used Comment: smoked a little in college ??? Alcohol Use: No Comment: Once a month ??? Drug Use: No ??? Sexual Activity: No Other Topics Concern ??? Not on file Social History Narrative The patient is a [place] who lives in [facility]. She is having some stresses at home and we will have social director meet with her today. Review of Systems Constitutional: Negative for fever, [...] Negative. Neurological: Negative. Hematological: Negative for adenopathy. Head: Normocephalic, without obvious abnormality, atraumatic Eyes: [...] supraclavicular, and axillary nodes normal Neurologic: Normal Assessment/Plan: Flor has what appears to be a stage I early breast cancer. Providing she does not have any nodule positivities and this lesion is not bigger than expected, one would recommend an adjuvant treatment with an aromatase inhibitor. We went over how these worked and risks and side effects today and also discussed possible scenarios if this was found to be node-positive or bigger than expected. I think, however, it is highly likely this is going to be an early cancer. We will see her back in a month. She understands if she has lumpectomy, radiation would be recommended and really does show a good understanding of things at this point. We are available if any questions or problems arise in the interim. * Sandra Cain RN - 09/07/2014 2:49 PM EDT MEDICAL ONCOLOGY INITIAL NURSING ASSESSMENT ADVANCE DIRECTIVES: In [facility] [ ] Has documents [ ] Will bring in [ x ] IF NO: Advance Directive pamphlet provided : Referral to Care Management : PRESENTING SYSTEMS and PATHOLOGY: mammogram REVIEW OF SYSTEMS: see amanda's note Prior Radiotherapy: no[ x ] Yes[ ]Site Date Facility Prior Chemotherapy: no[ x ] Yes[ ] Drug: Oncologist- LastTreatment: NO: YES: Claustrophobia or requires sedation for MRIs x Allergy to CT or MRI contrast agent or iodine or shellfish x Diabetic and on metformin x Metal in body, implanted device, worked with metal, body piercings,braces x Dentures or hearing device x Pacemaker x Difficulty breathing while lying flat x Kidney problems/creatinine x Balance difficulty: [x ]no [ ]yes At risk for fall: [x ] no [ ] yes If yes, actions implemented to prevent fall. Patient/family instructed to avoid independent ambulation. Use wheelchair and ask for assistance of staff while in the clinic. ADL [x ] no limits [ ] needs dressing assistance [ ] needs meal assistance Assistive device:[ x ]none [ ]cane [ ]walker [ ]wheelchair [ ]other: explain PAIN ASSESSMENT: [ 0 ] out of 10 Location: Description: [ ] Dull [ ] Sharp [ ] Burning [ ] Throbbing [ ] Radiating [ ] Continuous [ ]Intermittent Aggravating Factors: [ ] Movement [ ] Position [ ]Immobility [ ]Other Alleviating Factors: [ ]Medication [ ] Positioning [ ] Other Current Pain Management Plan: [ ]Satisfied [ ] Not satisfied SOCIAL ASSESSMENT: See [facility] social assessment information entered. Support Systems: friends and relatives transportation plan: [x ]private vehicle [ ] RCT needs Social Work referral [ ] Unknown at this time needs Social Work referral Barriers to treatment: none Referrals/Interventions: LEARNING STYLE: Visual likes to read about new things. TEACHING: __ [facility] ???Chemotherapy and You?? and folder given __ Specific chemotherapy literature provided and reviewed with patient documented in this encounter Miscellaneous Notes * Addendum Note - Argentina Nino MD - 09/08/2014 3:07 PM EDTAddended by: ARGENTINA NINO on: 09/08/2014 03:07 PM Modules accepted: Level of Service documented in this encounter Plan of Treatment Not on file documented as of this encounter Visit Diagnoses Diagnosis Malignant neoplasm of female breast, right documented in this encounter Care Teams Rn Clinical Coordinator Relationship Specialty Start Date End Date Ankit Vera MD [address] [place] [address] PCP - General 02/05/10 documented as of this encounter
--- OUTSIDE RECORDS SUMMARY | 2024-01-21 21:46 | XMS_ITS | Encounter Summary ---
[facility] [place] [address] Care Team Providers Care Information Engineer Name Role Phone Ankit Vera MD Primary Care Provider + [phone] Encounter Details Date Type Department Care Team (Late st Contact Info) Description 08/29/2014 Abstract Radiation Oncology at [address] [phone] Heavenly Peterson, RN Social History Tobacco Use Types Packs/Day Years Used Date Smoking Tobacco: Never Smokeless Tobacco: Never Alcohol Use Standard Drinks/Week Comments No 0 (1 standard drink = 0.6 oz pur e alcohol) Sex and Gender Information Value Date Recorded Sex Assigned at Female 03/25/2021 7:30 PM EST Gender Identity Female 03/25/2021 7:31 PM EST Sexual Orientation Straight 03/25/2021 7: 30 PM EST documented as of this encounter Plan of Treatment Not on file documented as of this encounter Visit Diagnoses Not on filedocumented in this encounter Care Teams Information Engineer Relationship Specialty Start Date End Date Ankit Vera MD [address] [address] PCP - General 02/05/10 documented as of this encounter
--- OUTSIDE RECORDS SUMMARY | 2024-01-21 21:46 | XMS_ITS | Encounter Summary ---
[facility] [place] [address] Care Team Providers Care Catalogue Illustrator Name Role Phone Ankit Vera MD Primary Care Provider + [phone] Reason for Visit * Reason Comments Radiation Follow-up BREAST CANCER Encounter Details Date Type Department Care Team (Late st Contact Info) Description 10/16/2016 2:30 PM EDT Office Visit Radiation Oncology at [address] [phone] Daysi Dyson APRN [address] [place] [address] [place] [address] Malignant neoplasm of right breast in female, estrogen receptor positive, unspecified site of breast Social History Tobacco Use Types Packs/Day [...] Sign Reading Time Taken Comments Blood Pressure 126/70 10/16/2016 2:33 PM EDT Pulse 65 10/16/2016 2:33 PM EDT Temperature 36.5 ??C (97.7 ??F) 10/16/2016 2:33 PM ED T Respiratory Rate 18 10/16/2016 2:33 PM EDT Oxygen Saturation 98% 10/16/2016 2:33 PM EDT Inhaled Oxygen Concentration - - Weight 70.7 kg (155 lb 12.8 oz) 10/16/2016 2:33 PM EDT Height - - Body Mass Index 28.13 09/08/2016 2:11 PM EDT documented in this encounter Progress Notes * Daysi Dyson, FOAM CUTTING SUPERVISOR - 10/16/2016 2:30 PM EDT Images from the original note were not included. Patient ID: Flor Lema is a 66 y.o. female with breast ca, R, IDC, low to focal intermed gr, ER+MT+, [id number]-, pT1c pN0, stage I. She was treated with lumpectomy followed by adjuvant radiation therapy to a dose of 52.56 Gy completed on 11/28/2014. She declined to start SHARMA post radiation. She is in clinic for scheduled follow-up. . HPI 64 y/o f who presented w/abnlity found on screening mmg. ?? 07/12/14 screening B mmgs: New spiculated lesion in UIQ R breast. New well circumscribed nodular density in UOQ L breast. ?? 07/20/14 B additional mmg'ic views & B breast US: Spiculated hypoechoic 0.7 cm mass in UIQ R breast highly suspicious for malignancy. Well circumscribed, ovoid soft tissue mass in UOQ L breast; no evidence of malignancy. ?? 08/02/[address] Lewis, breast surgeon, w/exam showing no palpable breast mass/adenopathy. ?? 08/02/14 US guided needle bxs R breast @ 2:00. ?? 08/02/14 dx'ic B mmgs: Postbx mmg reveals clip w/in mass consistent w/successful bx. L breast w/o suspicious finding. ?? [facility] path review: IDC, low gr, ER+MT+, [id number]-. ?? 08/09/[address] Lewis, w/exam showing superior R breast w/minimal bruising & no palpablebreast mass/adenopathy; discussion about tx options, including surgery, xrt, & rec for med onc consult. NLOC lumpectomy w/SNB sched'd for 09/21/14. ?? 08/09/14 CXR: No met dz. 09/21/2014-- US guided R breast lumpectomy @ 2 o'clock & SNB ?? [facility] path review: IDC, low to focal intermed gr, tumor size 1.3 cm, no in situ type, no ALI, RM neg, 1 sentinel lymph node (neg), pT1c pN0. Radiation therapy detail: Her completed course of xrt can be summarized as follows: 10/30/14 - 11/28/14, 42.56 Gy/16 fxs to R breast with 6 & 10 MV Xray external beam, followed by 10 Gy/4 fxs to lumpectomy bed with 6 & 10 MV Xray external beam, boosting lumpectomy bed to 52.56 Gy/20 fxs. Hormone therapy--Rx for SHARMA--patient never started it. ?? Breast cancer survivor care plan reviewed with patient 11/08/2015 with copy given patient and copy mailed to PCP. See problem list and treatment summary. BREAST CANCER NOTES 11/08/2015 Method of Cancer Detection abnormal mammogram 07/05/2014 right breast Family History Maternal great aunt Menopausal Status at Diagnosis post-menopausal Date of Diagnostic Biopsy 08/02/2014 Local Surgery Lumpectomy by Dr Lewis at [facility] Axillary Management [place] nodes alone--0+ of 1 Lymph node removed Date of Last Surgical Procedure 09/21/2014--lumpectomy Histology Invasive ductal carcinoma Tumor Staging from Staging System [id number] T1= tumor that is less than 2 cm N0= no involved lymph nodes M0 no distant spread Stage 1--good prognosis Size of Primary Malignancy 1.3 cm Grade Low grade Margin negative ER--estrogen receptor positive MT--progesterone receptor positive HER-2 negative Radiation therapy Dates of treatment: 10/30/14 - 11/28/14 Radiation detail: 42.56 Gy/16 fxs to R breast with 6 & 10 MV Xray external beam, followed by 10Gy/4 fxs to lumpectomy bed with 6 & 10 MV Xray external beam, boosting lumpectomy bed to 52.56 Gy/20 fxs. First Adjuvant Endocrine Therapy Tamoxifen Rx given patient post XRT and she never started it. Medical oncologist and surgeon aware Surveillance: 05/30/2015-- mammogram--negative ?? Patient Active Problem List Diagnosis Code ??? Breast cancer of upper-inner quadrant of right female breast C50.211 Past Surgical History: Procedure Laterality Date ??? BREAST BIOPSY 2014 ??? SECTION Bilateral 08/1991 ??? WISDOM TOOTH EXTRACTION 1967 Allergies Allergen Reactions ??? Darvon [Propoxyphene] GI upset Medications 10/16/16 1506 Medication Sig Taking? HOMEOPATHIC DRUGS (RAUWOLFIA ORAL) Take by mouth. Patient takes this for blood pressure. Yes b complex vitamins Capsule Take 1 [...] 6 hours as needed for Pain. Yes Social History Social History ??? Marital status: Spouse name: N/A ??? Number of children: N/A ??? Years of education: N/A Occupational History ??? Not on file. Social History Main Topics ??? Smoking status: Former Smoker Types: Cigarettes Quit date: 07/30/1973 ??? Smokeless tobacco: Never Used Comment: smoked a little in college ??? Alcohol use No Comment: Once a month ??? Drug use: No ??? Sexual activity: No Other Topics Concern ??? Not on file Social History Narrative Patient and her have been estranged since the time of her diagnosis. He is not living with her. Her 24 year old son lives with her. He and many friends have been very supportive. 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 Interim History: Ms Torey Mason) reports that she is doing well generally. She has been seeing her surgeon every six months and was last seen in medical oncology in August. She has been exercising regularly. Surveillance mammogram was done at [facility] in May 2016 which was negative. She is not on SHARMA She has some mild non distressing tenderness. She reports no persistent cough, no shortness of breath, no persistent headache, no skeletal pain, no chest wall tightness, no masses, no nipple discharge. Review of Systems Constitutional: Negative. Negative for activity change, appetite change, chills, fatigue, fever andunexpected weight change. HENT: Negative. Eyes: Negative for visual disturbance. Respiratory: Negative. Negative for cough, chest tightness, shortness of breath and wheezing. Cardiovascular: Negative. Negative for chest pain and leg swelling. Gastrointestinal: Negative. Genitourinary: Negative. Negative for difficulty urinating, dysuria, enuresis, pelvic pain and vaginal bleeding. Post menopausal Musculoskeletal: Negative. Negative for arthralgias. Skin: Negative. Neurological: Negative. Negative for dizziness, weakness and headaches. Hematological: Negative. Psychiatric/Behavioral: Negative. Mood overall positive Vitals Office Visit from 10/16/2016 in [facility] Radiation Oncology Weight - Scale 70.7 kg (155 lb 12.8 oz) Temp 36.5 ??C (97.7 ??F) Temp Source Oral Heart Rate 65 Heart Rate Source NIBP Resp 18 BP 126/70 BP Location Left arm Patient Position Sitting SpO2 98 % KPS: 1 Objective: Physical Exam Constitutional: She is oriented to person, place, and time. She appears well- developed and well-nourished. No distress. HENT: Head: Normocephalic and atraumatic. Eyes: Conjunctivae and EOM are normal. Right eye exhibits no discharge. Left eye exhibits no discharge. No scleral icterus. Neck: Normal range of motion. Neck supple. Cardiovascular: Normal rate, regular rhythm and normal heart sounds. Exam reveals no gallop and no friction rub. No murmur heard. Pulmonary/Chest: Effort normal and breath sounds normal. No respiratory distress. She has no wheezes. She has no rales. Abdominal: Soft. Bowel sounds are normal. She exhibits no distension. Musculoskeletal: Normal range of motion. She exhibits no edema, tenderness or deformity. Lymphadenopathy: Head (right side): No submental, no submandibular, no tonsillar, no preauricular, no posterior auricular and no occipital adenopathy present. Head (left side): No submental, no submandibular, no tonsillar, no preauricular, no posterior auricular and no occipital adenopathy present. She has no cervical adenopathy. She has no axillary adenopathy. Right: No supraclavicular adenopathy present. Left: No supraclavicular adenopathy present. Neurological: She is alert and oriented to person, place, and time. She exhibits normal muscle tone. Coordination normal. Skin: Skin is warm and dry. No rash noted. She is not diaphoretic. No erythema. No pallor. Psychiatric: She has a normal mood and affect. Her behavior is normal. Judgment and thought contentnormal. Vitals reviewed. Breast__X__ no nipple discharge, no dryness, no erythema, no tenderness, no lymphedema of breast orarm, good right shoulder ROM Treated site: __X__Right or ____Left, _X___Breast or Chest wall Telangectasias: __X__None, ____Few; Moderate; Many and confluent Hypopigmentation: _X___None; ____Slight or localized; ____Marked or generalized Hyperpigmentation: _X___None; ____Slight or localized; ____Marked or generalized Fibrosis: __X___None; Increased density; ____Marked increased density + retraction; ____ Very marked Dry skin: __X__None; ____Asymptomatic; symptomatic; Interferes with ADL Cosmetic Result: __X__ Excellent; Good;____ Fair; ____Poor Assessment and Plan: Flor Lema is a 66 y.o. female with breast ca, R, IDC, low to focal intermed gr, ER+MT+, [id number]-, pT1c pN0, stage I. She was treated with lumpectomy followed by adjuvant radiation therapy to a dose of 52.56 Gy completed on 11/28/2014. She declined to start SHARMA post radiation. She is doing well clinically with KATHERIN. She is coping with social stressors with support of her friends and her son. She is exercising regularly. She had a negative mammogram in May 2016 and will have repeat in May 2017 coordinated with followup with her surgeon Dr Lewis at [facility]. She has no radiation late effects and KATHERIN. We will not plan additional followup in radiation oncology given the close follow-up that she has with medical oncology (every six months )and her surgeon (every six months) . We will not plan additional followup in radiation oncology. Patient is to call with any questions or concerns in the interim. Thank you for the opportunity to participate in the care of this pleasant woman. documented in this encounter Plan of Treatment Not on file documented as of this encounter Visit Diagnoses Diagnosis Malignant neoplasm of right breast in female, estrogen receptor positive, unspecified site of breast documented in this encounter Care Teams Catalogue Illustrator Relationship Specialty Start Date End Date Ankit Vera MD [address] [address] PCP - General 02/05/10 documented as of this encounter
--- OUTSIDE RECORDS SUMMARY | 2024-01-21 21:46 | XMS_ITS | Encounter Summary ---
Author Organization [facility] [place] [address] Care Team Providers Care Dope Heater Name Role Phone Ankit Vera MD Primary Care Provider + [phone] Reason for Visit * Reason Comments Radiation Consult Encounter Details Date Type Department Care Team (Late st Contact Info) Description 09/04/2014 10:00 AM EDT Office Visit Radiation Oncology at [address] [phone] Estefania Marte MD [facility] [place] [address] Breast cancer, female, right Discharge Disposition: Home [...] Sign Reading Time Taken Comments Blood Pressure 151/88 09/04/2014 9:22 AM EDT Pulse 81 09/04/2014 9:22 AM EDT Temperature 36.6 ??C (97.9 ??F) 09/04/2014 9:22 AM ED T Respiratory Rate 16 09/04/2014 9:22 AM EDT Oxygen Saturation 99% 09/04/2014 9:22 AM EDT Inhaled Oxygen Concentration - - Weight 75.3 kg (166 lb) 09/04/2014 9:22 AM EDT Height - - Body Mass Index - - documented in this encounter Patient Instructions * Patient Instructions* Estefania Marte MD - 09/04/2014 10:30 AM EDT We ask that you not take the vitamin C supplement or the vitamin A supplement during radiotherapy. It is ok to take a vitamin B supplement, vitamin D supplement, calcium & magnesium during radiotherapy. documented in this encounter Progress Notes * Estefania Marte MD - 09/04/2014 10:22 AM EDT Images from the original note were not included. CC: Referred by Dr. Lewis for eval for xrt for breast ca. HPI: 64 y/o f who presented w/abnlity found on screening mmg. 07/12/14 screening B mmgs: New spiculated lesion in UIQ R breast. New well circumscribed nodular density in UOQ L breast. 07/20/14 B additional mmg'ic views & B breast US: Spiculated hypoechoic 0.7 cm mass in UIQ R breast highly suspicious for malignancy. Well circumscribed, ovoid soft tissue mass in UOQ L breast; no evidence of malignancy. 08/02/[address] Lewis, breast surgeon, w/exam showing no palpable breast mass/adenopathy. 08/02/14 US guided needle bxs R breast @ 2:00. 08/02/14 dx'ic B mmgs: Postbx mmg reveals clip w/in mass consistent w/successful bx. L breast w/o suspicious finding. [facility] path review: IDC, low gr, ER+WY+, Edw8suc-. 08/09/[address] Lewis, w/exam showing superior R breast w/minimal bruising & no palpablebreast mass/adenopathy; discussion about tx options, including surgery, xrt, & rec for med onc consult. NLOC lumpectomy w/SNB sched'd for 09/21/14. 08/09/14 CXR: No met dz. No pain. No hand/arm swelling. Good ROM of arms around shoulders. Appetite good. Energy level ok. Past Medical History Diagnosis Date ??? Headache(784.0) Past Surgical History Procedure Laterality Date ??? [place] tooth extraction 1966 ??? section Bilateral 08/1991 Physical Exam Constitutional: She is oriented to person, place, and time. She appears well- developed and well-nourished. No distress. BP 151/88 Pulse 81 Temp(Src) 36.6 ??C (97.9 ??F) (Oral) Resp 16 Wt 75.297 kg (166 lb) SpO2 99% HENT: Head: Normocephalic and atraumatic. Eyes: Conjunctivae and EOM are normal. Right eye exhibits no discharge. Left eye exhibits no discharge. No scleral icterus. Neck: Normal range of motion. Neck supple. No tracheal deviation present. No thyromegaly present. Pulmonary/Chest: Effort normal and breath sounds normal. No stridor. No respiratory distress. She has no wheezes. She has no rales. She exhibits no tenderness. Right breast exhibits skin change (1 mmmildly erythematous spot @ site of needle biopsy. ) and tenderness (Minimal tenderness @ needle biopsy site.). Right breast exhibits no inverted nipple, no mass and no nipple discharge. Left breast exhibits no inverted nipple, no mass, no nipple discharge, no skin change and no tenderness. Abdominal: Soft. She exhibits no distension and no mass. There is no tenderness. There is no rebound and no guarding. Musculoskeletal: Normal range of motion. She exhibits no edema or tenderness. Lymphadenopathy: Head (right side): No submental, no submandibular, no preauricular, no posterior auricular and no occipital adenopathy present. Head (left side): No submental, no submandibular, no preauricular, no posterior auricular and no occipital adenopathy present. She has no cervical adenopathy. She has no axillary adenopathy. Right: No supraclavicular adenopathy present. Left: No supraclavicular adenopathy present. Neurological: She is alert and oriented to person, place, and time. No cranial nerve deficit. She exhibits normal muscle tone. Coordination normal. Skin: She is not diaphoretic. Psychiatric: She has a normal mood and affect. Her behavior is normal. Judgment and thought contentnormal. A: Breast ca, R, IDC, low gr, ER+WY+, Ugj0sll-, s/p needle bx, cT1 cN0, stage I; lumpectomy & SNB planned. P: We discussed how xrt + lumpectomy gives equivalent likelihood of ca control as mastectomy. We discussed how she will be evaluated by a medical oncologist for possible chemotherapy +/- hormonal treatment. I informed her that if chemotherapy is not given & if her SNB is neg, most likely 20 daily fxs of xrt would be rec'd, provided dose homogeneity constraints met on CT based xrt plan. Otherwise, xrt would be given in 33 daily fxs. I informed her that if chemo is given, usually it is given prior to xrt & xrt is started 3 - 4 wks after chemo completion. We discussed how xrt to her R axilla & supraclav might be rec'd if her SNB is positive. We discussed the need for neg margins prior to proceeding w/xrt & possible reexcision to obtainneg margins, if indicated. Possible side effects of xrt discussed, w/acute/immediate side effects including: Pinkening, soreness & peeling of skin in treated area; swelling of treated area; soreness of treated area; cough;shortness of breath; sore throat; sense of fullness in throat; swelling of right hand/arm, which could be permanent; numbness, tingling, weakness & difficulty coordinating right hand/arm; tiredness. Late/vermin exterminator side effects of xrt discussed include: Treated breast may tighten, become firmer & sit higher; achiness/stiffness of chest wall on treated side; CT after xrt may show scarring w/insmall volume of lung on treated side; right sided rib fracture; permanent swelling of right hand/arm; small risk of irradiation assoc'd 2nd malignancy. Need for CTsim prior to xrt discussed. She was advised not to take vit C or vit A supplement during xrt. She indicated that she planned to proceed w/xrt after her lumpectomy & SNB. She will be contacted after pathologic review of her lumpectomy & SNB biopsy for further discussion. 25 mins of 40 min face to face visit w/Flor spent discussing rationale for xrt; hoped for benefit of xrt; possible side effects/complications of xrt; prevention/management of side effects/complications of xrt; logistics of daily xrt; timing of xrt vis a vis chemo; CTsimulation; arm position required for xrt; followup after completion of xrt. * Mayra Boothe RN - 09/04/2014 9:51 AM EDT General instructions for Radiation therapy Radiation Oncology Team Radiation Oncologist -The doctor who will direct all aspects of your radiation treatments Nurse Practitioner - They assist your doctor in treating your side effects and with follow up appointments. Registered Nurse - They dipesh you in learining about you radaiton treatments, , and things you can do to help manage the side effects. Roping Machine Tender - They take the doctors radiation prescription and customize it into doses (or days of treatments) specific for you. Physicist - They make sure all the machines are operating correctly and double check calculations for your treatment. Radiation Technologists - They operate the machines which deliver your radiation. You see them daily and they schedule your treatments. Simulation CT/ Planning Session Your first step after deciding to start radiation treatments is done on a special CAT scanner in the radiation department. The images obtained are used to plan your treatments. This may be scheduled the same day you meet your doctor or in a separate visit. This usually takes between 30 minutes to one hour. You may need an IV for contrast. If so our nurse will let you know that day along with any other special instructions. During this visit we may lucio Your skin with a tiny ???tattoos?? , take pictures or make special molds or masks to help us place you in the exact treatment position every day. After this session it takes up to two weeks for your plan to be developed and checked by your doctor, the dosimetrists and the physicist. Skin Care - Your nurse will provide you with the necessary creams and supplies as you need them during your treatments. Please make sure you keep the treatment area clean and dry. Be sure to notice if your clothing rubs or digs into the treatment area and try to wear clothes which are less abrasive, like cotton or loose fitting. Do not use harsh soaps, ointments, deodorants or tapes in the treatment area unless directed by your nurse or doctor. Keep the treatment area out of the sun during treatments. General precautions DO NOT USE heating pads, hot water bottles, hot poultices, heat lamps, heat in any form, or ice packs to the area of your body being treated. It is common to start feeling fatigue after a few weeks of being treated. You can help minimize this by getting regular exercise or walking and getting plenty of rest. In general a well balanced diet is recommended. The podiatry doctor and nurse will inform you of any special diet requirements. Avoid shaving the treatment area with a razor. If you must shave use an electric razor. Contact numbers Section of Radiation Oncology Our normal business hours are: Thursday - Thursday 8 AM to 5 PM [facility] [place], [facility] phone# [phone] If you have questions about your radiation appointments please ask to speak to one of our secretarystaff. If you have questions for a nurse/doctor about radiation treatments, radiation side effects or you are not feeling well it is best to call early in the day. This allows a nurse to return your call by5 PM the same day. If you call after 4 PM, a nurse will return your call by 5 PM the following day unless it is emergent. If you experience any of the following you need to seek emergency care immediately by calling 911 1. Sudden and unexpected breathing difficulty without any exertion 2. Sudden onset of chest pain 3. Sudden onset of severe pain or uncontrolled pain 4. Sudden onset of severe weakness and/or unable to ambulate 5. Sudden new onset of a seizure 6. Fall resulting in injury A Radiation Oncology doctor is net application support specialist after our normal hours and on weekends. To call for urgent medical issues from radiation treatments that can not wait until normal business hours, please call for either location and have the metal punch press operator page the Radiation Oncologist in call. documented in this encounter Plan of Treatment Not on file documented as of this encounter Visit Diagnoses Diagnosis Breast cancer, female, right documented in this encounter Care Teams Dope Heater Relationship Specialty Start Date End Date Ankit Vera MD [address] [place] [address] PCP - General 02/05/10 documented as of this encounter
--- OUTSIDE RECORDS SUMMARY | 2024-01-21 21:46 | XMS_ITS | Encounter Summary ---
Author Organization [facility] [place] [address] Care Team Providers Care Wire Harness Design Engineer Name Role Phone Ankit Vera MD Primary Care Provider + [phone] Reason for Visit * Reason Comments Radiation Treatment Encounter Details Date Type Department Care Team (Late st Contact Info) Description 11/08/2014 5:00 PM EDT Office Visit Radiation Oncology at [address] [phone] Estefania Marte MD [facility] [place] [address] Breast cancer, female, right Discharge Disposition: Home [...] Sign Reading Time Taken Comments Blood Pressure 146/84 11/08/2014 4:00 PM EDT Pulse 86 11/08/2014 4:00 PM EDT Temperature 36.8 ??C (98.2 ??F) 11/08/2014 4:00 PM ED T Respiratory Rate 16 11/08/2014 4:00 PM EDT Oxygen Saturation 99% 11/08/2014 4:00 PM EDT Inhaled Oxygen Concentration - - Weight - - Height - - Body Mass Index - - documented in this encounter Progress Notes * Estefania Marte MD - 11/08/2014 5:07 PM EDT DIAGNOSIS: Breast ca, R, IDC, low to focal intermed gr, ER+MS+, Qcq2shx-, pT1c pN0, stage I. Hormonal tx to follow xrt. CURRENT TREATMENT DOSE: 21.28 Gy ANTICIPATED TOTAL DOSE: 42.56 Gy R breast, 52.56 Gy lumpectomy bed R breast Current # of xrt received: 8 Anticipated total # of xrt txs: 16 R breast, 20 lumpectomy bed R breast Evaluation of port verification films: Approved. For details, see electronic film record in [employer]. Changes in Medical Condition: A little pinkening w/in irrad'd area. No itchiness. She has been contacted by Dr. Vera's office since I last saw her, & he will be prescribing med for her elevated bp. Pain?: No. Physical Exam: BP 146/84 mmHg Pulse 86 Temp(Src) 36.8 ??C (98.2 ??F) Resp 16 SpO2 99% A&Ox3, in NAD. Minimal erythema w/in irrad'd area. Amb stable. Response to xrt: As expected. Irradiation Related Symptoms: Skin rxn. Treatment for Symptom Control: Spencer's cream. Pain Management: Not needed. Recommendation on Continuing Course of xrt: Cont. She will bring in the med that Dr. Vera rxs for her bp. CC: Dr. Vera documented in this encounter Plan of Treatment Not on file documented as of this encounter Visit Diagnoses Diagnosis Breast cancer, female, right documented in this encounter Care Teams Wire Harness Design Engineer Relationship Specialty Start Date End Date Ankit Vera MD [address] [address] PCP - General 02/05/10 documented as of this encounter
--- OUTSIDE RECORDS SUMMARY | 2024-01-21 21:46 | XMS_ITS | Encounter Summary ---
Author Organization [facility] [place] [address] Care Team Providers Care Waistline Joiner Name Role Phone Ankit Vera MD Primary Care Provider + [phone] Encounter Details Date Type Department Care Team (Late st Contact Info) Description 09/03/2017 Telephone Hematology/Oncology at [address] [phone] Jacob Weiner Social History Tobacco Use Types Packs/Day Years [...] encounter Miscellaneous Notes * Telephone Encounter - Jacob Weiner - 09/03/2017 3:58 PM EDT Left a msg for Ria asking her to call us to schedule her apt for October. She requests that we callher first to schedule the apt. documented in this encounter Plan of Treatment Not on file documented as of this encounter Visit Diagnoses Not on filedocumented in this encounter Care Teams Waistline Joiner Relationship Specialty Start Date End Date Ankit Vera MD [address] [address] PCP - General 02/05/10 documented as of this encounter
--- OUTSIDE RECORDS SUMMARY | 2024-01-21 21:46 | XMS_ITS | Encounter Summary ---
Author Organization [facility] [place] [address] Care Team Providers Care Manager Heavy Equipment Name Role Phone Ankit Vera MD Primary Care Provider [phone] Encounter Details Date Type Department Care Team (Latest Contact Info) Description 09/20/2014 - 09/20/2014 11:59 PM EDT Hospital Encounter Radiology Library at [facility] [address] [place] [phone] David Saleh MD [facility] [address] [address] Discharge Disposition: Home Social History Tobacco Use [...] Sig Dispensed Refills Start Date End Date b complex vitamins Capsule Take 1 capsule [...] every 6 hours as needed for Pain. UNABLE TO FIND Calcium with magnesium 1200/600mg daily 11/30/2017 documented as of this encounter Plan of Treatment Not on file documented as of this encounter Procedures Procedure Name Priority Date/Time Associated Diagnosis Comments FILM LIBRARY STORAGE ONLY NUCLEAR MEDICINE Routine 09/20/2014 12:00 AM EDT documented in this encounter Results * Film Library- Storage Only nuclear medicine (09/20/2014 12:00 AM EDT) Narrative [facility] - 05/04/2017 3:22 PM EST This exam is for storage only and is auto-finalizing. David Saleh MD [facility] FILM LIBRARY ORD ERABLES Performing Organization Address City/State/[facility] Co de Phone Number [place], [place] documented in this encounter Visit Diagnoses Not on filedocumented in this encounter Care Teams Manager Heavy Equipment Relationship Specialty Start Date End Date Ankit Vera MD [address] [address] PCP - General 02/05/10 documented as of this encounter
--- OUTSIDE RECORDS SUMMARY | 2024-01-21 21:46 | XMS_ITS | Encounter Summary ---
Author Organization [facility] [place] [address] Care Team Providers Care Linux Unix System Administrator Name Role Phone Ankit Vera MD Primary Care Provider + [phone] Reason for Visit * Reason Comments Follow-up Vulvar LS Encounter Details Date Type Department Care Team (Late st Contact Info) Description 05/06/2017 3:30 PM EST Office Visit Obstetrics [place] [phone] Jovita Jin MD [facility] DR OBSTETRICS & [place] [address] Elevated blood pressure reading with diagnosis of [...] Sign Reading Time Taken Comments Blood Pressure 157/95 05/06/2017 3:17 PM EST Pulse 80 05/06/2017 3:17 PM EST Temperature 36.4 ??C (97.6 ??F) 05/06/2017 3:17 PM ES T Respiratory Rate - - Oxygen Saturation 99% 05/06/2017 3:17 PM EST Inhaled Oxygen Concentration - - Weight - - Height - - Body Mass Index - - documented in this encounter Progress Notes * NasrinJovita Moira - 05/06/2017 3:30 PM EST [facility] Visit Flor Rollins [phone] 05/06/2017 Ankit Vera MD Reason for Visit: Flor is a 67 y.o. postmenopausal female who presents for follow-up of lichen sclerosis Ria was seen on 12/30 and diagnosed with lichen sclerosis by biopsy. She was started on daily clobetasol. She was seen again on 03/05 and continued at every other day. She endorses doing well since her last visit. She uses coconut oil on the vulva occassionally for a raw feeling area. No itch since her original diagnosis. No LMP recorded. Patient is postmenopausal. Menopause age 56. Had regular menses. OCPs for two years followed by IUDs. Wants to be sexually active with her new partner; she is from her . Last pap Ankit Vera in [place] ([facility]) 1 year ago and normal. Unsure if she had HPV testing. Hx abnormal pap smear around age late 20s but never needed colposcopy or conization, no STDs OB History Para Term AB Living 5 2 2 3 2 SAB TAB Ectopic Multiple Live Births 3 2 # Outc Date GA Lbr Robert/2nd Wgt Sex Del Anes PTL Lv 1 Term 1969 M Vag-Spont Living 2 Term 1991 M LWR SEG HARE Living 3 SAB 1993 4 SAB 1993 5 1993 Past Medical History: Diagnosis Date ??? Breast cancer of upper-inner quadrant of right female breast ??? Breast cancer of upper-inner quadrant of right female breast ??? Headache(784.0) Past Surgical History: Procedure Laterality Date ??? BREAST BIOPSY 2014 ??? BREAST LUMPECTOMY 2014 ??? SECTION Bilateral 08/1991 ??? [place]IS[place] TOOTH EXTRACTION 1967 Family History Problem Relation Age of Onset ??? Lung Cancer Mother age 69 ??? Breast Cancer Maternal Aunt 55 maternal great aunt ??? Diabetes Father ??? Ovarian Cancer Neg Hx ??? Uterine Cancer Neg Hx ??? Pancreatic Cancer Neg Hx ??? Colorectal Cancer Neg Hx Social History Social History ??? Marital status: [...] ??? Sexual activity: Not Currently Partners: Male Other Topics Concern ??? None Social History [...] list which includes the following prescription(s): clobetasol, homeopathicdrugs, b complex vitamins, vitamin a, ascorbic acid (vitamin c), cholecalciferol (vitamin d3), UNABLE TO FIND, and ibuprofen. Allergies Allergen Reactions ??? Darvon [Propoxyphene] GI upset ROS: no vaginal bleeding, no vaginal or vulvar itch, no recent health problems Physical Exam BP (!) 157/95 Pulse 80 Temp 36.4 ??C (97.6 ??F) (Oral) SpO2 99% General: Well developed female. Pelvic: External genitalia improved from prior exam, resolution of white scarring and minimal agglutination of labor minora posteriorly, no white scarring in the jaclyn-clitororal area. No suspicious lesions. Neuro: grossly intact Assessment: Flor is a 67 y.o. postmenopausal female who presents for follow-up of lichen sclerosis. Plan: Appropriate response to clobetasol with overall improvement. Apply twice weekly and call for any flare in symptoms. Will reexamine in June when she comes back for fu mammogram and breast exam. The patient was discussed with Dr. German, Attending. JOVITA JIN MD, PGY3 * Veronica German MD - 05/06/2017 3:30 PM EST The case was discussed at the time of the visit. The assessment and plan were formulated in discussion with me and I agree with them as documented. I have reviewed the history, physical exam, assessment and plan with Dr. Jin. Of note, we also discussed recommendation to continue at minimum q6 month exams for now after the June follow up. Veronica German MD documented in this encounter Plan of Treatment Not on file documented as of this encounter Visit Diagnoses Diagnosis Elevated blood pressure reading with diagnosis of hypertension documented in this encounter Care Teams Linux Unix System Administrator Relationship Specialty Start Date End Date Ankit Vera MD [address] [place] [address] PCP - General 02/05/10 documented as of this encounter
--- OUTSIDE RECORDS SUMMARY | 2024-01-21 21:46 | XMS_ITS | Encounter Summary ---
Author Organization [facility] [place] [address] Care Team Providers Care Student Counsellor Name Role Phone Ankit Vera MD Primary Care Provider [phone] Encounter Details Date Type Department Care Team (Late st Contact Info) Description 10/31/2014 5:00 PM EDT Office Visit Radiation Oncology at [address] [phone] Estefania Marte MD [facility] [place] [address] Breast cancer, female, right Discharge Disposition: Home [...] Sign Reading Time Taken Comments Blood Pressure 156/93 10/31/2014 4:57 PM EDT Pulse 76 10/31/2014 4:57 PM EDT Temperature 36.9 ??C (98.4 ??F) 10/31/2014 4:57 PM ED T Respiratory Rate 16 10/31/2014 4:57 PM EDT Oxygen Saturation 100% 10/31/2014 4:57 PM EDT Inhaled Oxygen Concentration - - Weight - - Height - - Body Mass Index - - documented in this encounter Progress Notes * Estefania Marte MD - 10/31/2014 5:10 PM EDT DIAGNOSIS: Breast ca, R, IDC, low to focal intermed gr, ER+SC+, Ivn5fxd-, pT1c pN0, stage I. Hormonal tx to follow xrt. CURRENT TREATMENT DOSE: 5.32 Gy ANTICIPATED TOTAL DOSE: 42.56 Gy R breast, 52.56 Gy lumpectomy bed R breast Current # of xrt received: 2 Anticipated total # of xrt txs: 16 R breast, 20 lumpectomy bed R breast Evaluation of port verification films: Approved. For details, see electronic film record in [employer]. Changes in Medical Condition: None. Has spencer's cream & knows not to apply it w/in 2 hrs prior to xrt. Pain?: No. Physical Exam: BP 156/93 mmHg Pulse 76 Temp(Src) 36.9 ??C (98.4 ??F) (Oral) Resp 16 SpO2 100% A&Ox3, in NAD. Amb stable. Response to xrt: As expected. Irradiation Related Symptoms: None. Treatment for Symptom Control: Spencer's cream. Pain Management: Not needed. Recommendation on Continuing Course of xrt: Cont. Her bp has been elevated both times we have seen her, & we will inform her PCP. CC: Dr. Vera documented in this encounter Plan of Treatment Not on file documented as of this encounter Visit Diagnoses Diagnosis Breast cancer, female, right documented in this encounter Care Teams Student Counsellor Relationship Specialty Start Date End Date Ankit Vera MD [address] [place] [address] PCP - General 02/05/10 documented as of this encounter
--- OUTSIDE RECORDS SUMMARY | 2024-01-21 21:46 | XMS_ITS | Encounter Summary ---
[facility] Organization [facility] [place] [address] Care Team Providers Care Hardware Test Engineer Name Role Phone Ankit Vera MD Primary Care Provider [phone] Reason for Referral * Consultation (Routine) - Closed Specialty Diagnoses / Procedures Referred By Taya gill Referred To Contact Gastroenterology Diagnoses Screening for colon cancer Jovita Jin MD [facility] OBSTETRICS & [place] [address] [facility] Endoscopy [address] [place] [address] Referral ID Status Reason Start Date Expiration Date V isits Requested Visits Authorized [id number] Closed Consult, Test & Treat 03/05/2017 03/05/2018 1 1 Reason for Visit * Reason Comments Follow-up lichen sclerosis Encounter Details Date Type Department Care Team (Late st Contact Info) Description 03/05/2017 2:00 PM EST Office Visit Obstetrics [place] [address] Jovita Jin MD [facility] OBSTETRICS & [place] [address] Screening for colon cancer; Malignant neoplasm of female breast, unspecified estrogen receptor status, unspecified laterality, unspecified site of breast Social History Tobacco [...] Sign Reading Time Taken Comments Blood Pressure 137/83 03/05/2017 2:46 PM EST Pulse 74 03/05/2017 2:46 PM EST Temperature 36.8 ??C (98.2 ??F) 03/05/2017 2:46 PM ES T Respiratory Rate - - Oxygen Saturation 98% 03/05/2017 2:46 PM EST Inhaled Oxygen Concentration - - Weight 70.6 kg (155 lb 9.6 oz) 03/05/2017 2:46 P M EST Height - - Body Mass Index 28.49 12/26/2016 10:07 AM EDT documented in this encounter Progress Notes * Jovita Jin - 03/05/2017 2:00 PM EST Javascript Software Engineer Clinic Visit Flor Rollins [id number] 03/05/2017 Ankit Vera MD Reason for Visit: Flor is a 66 y.o. postmenopausal female who presents for follow-up of lichen sclerosis Ria was seen on 12/30 and diagnosed with lichen sclerosis by biopsy. She was started on daily clobetasol. Today she presents for follow-up. Had been using clobetasol nightly until two weeks ago and then switched to every other night. Has not tried intercourse. No itching. 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 No LMP recorded. Patient is postmenopausal. Menopause age 56. Had regular menses. OCPs for two years followed by IUDs. Wants to be sexually active with her new partner; she is from her . Last pap Ankit Vera in [place] ([facility]) 1 year ago and normal. Unsure if [...] fatigue, night sweats, unanticipated changes in weight. Pulmonary - No cough or SOB. Cardiac - No CP or palpitations. GI - No abdominal pain, N/V, diarrhea, constipation, melena. - No dysuria, hematuria, polyuria. No vaginal discharge. Resolved vaginal dryness Physical Exam BP 137/83 Pulse 74 Temp 36.8 ??C (98.2 ??F) Wt 70.6 kg (155 lb 9.6 oz) SpO2 98% BMI 28.49kg/m2 General: Well developed female. Pelvic: External genitalia improved from prior exam, decrease in white scarring and agglutination, there is mild white scarring in the jaclyn-clitororal area. No suspicious lesions. Neuro: grossly intact Assessment: Flor is a 66 y.o. postmenopausal female who presents for follow-up of lichen sclerosis. Plan: Appropriate response to clobetasol but some residual white scarring. The agglutination and symptoms improved. Plan to apply every other night and then re-examine in 2-3 months. Colonoscopy referral placed for routine screening. Mammogram ordered for June; she is due for annual screening at that time and her breast surgeon is leaving practice. She will ask Oncologist if shecan continue annual breast exams and mammogram follow-up with gynecology. The patient was discussed with Dr. German, Attending. JOVITA JIN MD, PGY3 * Veronica German MD - 03/05/2017 2:00 PM EST The case was discussed at the time of the visit. The assessment and plan were formulated in discussion with me and I agree with them as documented. I have reviewed the history, physical exam, assessment and plan with Dr. Jin. Veronica German MD documented in this encounter Plan of Treatment Scheduled Referrals Name Type Priority Associated Diagnoses Order Schedule Referral to Gastroenterology Outpatient Referral Routine Screening for colon cancer Ordered: 03/05/2017 documented as of this encounter Visit Diagnoses Diagnosis Screening for colon cancer Special screening for malignant neoplasms, colon Malignant neoplasm of female breast, unspecified estrogen receptor status, unspecified laterality, unspecified site of breast documented in this encounter Care Teams Hardware Test Engineer Relationship Specialty Start Date End Date Ankit Vera MD [address] [address] PCP - General 02/05/10 documented as of this encounter
--- OUTSIDE RECORDS SUMMARY | 2024-01-21 21:46 | XMS_ITS | Encounter Summary ---
Author Organization [facility] [place] [address] Care Team Providers Care Cut Out Marker Name Role Phone Ankit Vera MD Primary Care Provider + [phone] Reason for Visit * Reason Onset Date Comments Medication Refill 07/13/2018 Encounter Details Date Type Department Care Team (Late st Contact Info) Description 07/13/2018 Refill Obstetrics [place] [address] Sophia Alexandra MD [facility] DR OBSTETRICS & [place] [address] Social History Tobacco Use Types Packs/Day Years [...] on filedocumented in this encounter Care Teams Cut Out Marker Relationship Specialty Start Date End Date Ankit Vera MD [address] [address] PCP - General 02/05/10 documented as of this encounter
--- OUTSIDE RECORDS SUMMARY | 2024-01-21 21:46 | XMS_ITS | Encounter Summary ---
Author Organization [facility] [place] [address] Care Team Providers Care Dish Up Person Name Role Phone Ankit Vera MD Primary Care Provider + [phone] Reason for Visit * Reason Comments On Treatment Visit Encounter Details Date Type Department Care Team (Late st Contact Info) Description 11/28/2014 10:00 AM EDT Office Visit Radiation Oncology at [address] [phone] Estefania Marte MD [facility] [place] [address] Breast cancer, female, right Discharge Disposition: Home [...] Sign Reading Time Taken Comments Blood Pressure 152/91 11/28/2014 11:02 AM EDT Pulse 75 11/28/2014 11:02 AM EDT Temperature 36 ??C (96.8 ??F) 11/28/2014 11:02 AM EDT Respiratory Rate 12 11/28/2014 11:02 AM EDT Oxygen Saturation 100% 11/28/2014 11:02 AM EDT Inhaled Oxygen Concentration - - Weight 71.7 kg (158 lb) 11/28/2014 11:02 AM EDT Height - - Body Mass Index 28.53 10/05/2014 1:16 PM EDT documented in this encounter Patient Instructions * Patient Instructions* Ese Tapia RN - 11/28/2014 11:12 AM EDT DONE WITH TREATMENT INSTRUCTIONS AFTER RECEIVING RADIATION TO THE BREAST Your skin reaction in the treatment field can continue to progress over the next two weeks before it improves. Continue to apply the cream your nurse gave you for two weeks after treatment and until all signs of redness is gone. If you experience skin peeling, apply mepilex to peeling area to absorb drainage and assist in healing. Remove mepilex for showers and change if soiled. Call us if you are having difficulty managing any skin reaction. Discomfort from radiation to the breast is usually relieved by ibuprofen or Tylenol. Call us if youhave discomfort not relieved by these medications. Treatment related fatigue should resolve in 2-4 weeks after treatment is completed. Practice good sleep hygiene habits and take rest periods as needed. Some patients find walking for 30 min daily increases their energy level. If you notice skin tightness, decreased ability to use your arm or swelling in the arm of the treated side, notify us and we will arrange a physical therapy consult. Avoid blood pressure measurements and blood draws in the arm on the treated side. Some people find comfort in joining a support group to meet women who have had breast cancer and share their experiences. If you are interested, tell your nurse and she will assist you in finding onein your area. You will get a call from a pocket secretary assembler to schedule your follow up appointment. 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 Hormonal tx to follow xrt. CURRENT TREATMENT DOSE: 42.56 Gy R breast, 52.56 Gy lumpectomy bed R breast ANTICIPATED TOTAL DOSE: 42.56 Gy R breast, 52.56 Gy lumpectomy bed R breast Current # of xrt received: 16 R breast, 20 lumpectomy bed R breast Anticipated total # of xrt txs: 16 R breast, 20 lumpectomy bed R breast Evaluation of port verification films: Approved. For details, see electronic film record in [employer]. Changes in Medical Condition: Minimal itchiness w/in irrad'd area, relieved by spencer's cream, has not needed to use 1% htc. Has not yet received the rx from Dr. Vera office for her bp. Pain?: No. Physical Exam: BP 152/91 mmHg Pulse 75 Temp(Src) 36 ??C (96.8 ??F) (Oral) Resp 12 Wt 71.668kg (158 lb) SpO2 100% A&Ox3, in NAD. Mild erythema w/in irrad'd area, w/mild folliculitis in UIQ; skin intact. Amb stable. Response to xrt: As expected. Irradiation Related Symptoms: Skin rxn. Treatment for Symptom Control: Spencer's cream. 1% htc rec'd for itchiness not relieved by Spencer's cream. Pain Management: Not needed. Recommendation on Continuing Course of xrt: Completes xrt today. Rtc 1 - 2 mos. Skin care instructions given. She plans to go by Dr. Vera's office to burr picker the rx for the antihypertensive med & was encouraged to do so. Her completed course of xrt can be summarized as follows: 10/30/14 - 11/28/14, 42.56 Gy/16 fxs to R breast with 6 & 10 MV Xray external beam, followed by 10 Gy/4 fxs to lumpectomy bed with 6 & 10 MV Xray external beam, boosting lumpectomy bed to 52.56 Gy/20 fxs. documented in this encounter Plan of Treatment Not on file documented as of this encounter Visit Diagnoses Diagnosis Breast cancer, female, right documented in this encounter Care Teams Dish Up Person Relationship Specialty Start Date End Date Ankit Vera MD [address] [address] PCP - General 02/05/10 documented as of this encounter
--- OUTSIDE RECORDS SUMMARY | 2024-01-21 21:46 | XMS_ITS | Encounter Summary ---
[place] [address] Care Team Providers Care Compound Filler Name Role Phone Ankit Vera MD Primary Care Provider [phone] Encounter Details Date Type Department Care Team (Latest Contact Info) Description 10/10/2019 12:59 PM EDT - 10/10/2019 11:59 PM EDT Hospital Encounter Mammography/[place] [address] Ankit Vera MD [address] [place] [id number] Encounter for screening mammogram for breast cancer [...] 6 hours as needed for Pain. clobetasoL (TEMOVATE) 0.05 % Cream Apply topically nightly. Apply pea-sized amount every other night until the next clinic visit 30 g 05/10/2019 12/22/2019 documented as of this encounter Plan of Treatment Not on file documented as of this encounter Procedures Procedure Name Priority Date/Time Associated Diagnosis Comments MAMMO SCREENING CAD AND JAIR BILATERAL Routine 10/10/2019 1:31 PM EDT Encounter for screening mammogram for breast cancer documented in this encounter Results * Mammo Screening Cad and Jair Bilateral (10/10/2019 1:31 PM EDT) Anatomical Region Laterality Modality Breast Bilateral Mammography Narrative 10/11/2019 9:57 AM EDT EXAMINATION: MAMMO SCREENING CAD AND [...] participate in the care of this patient. For questions regarding this report, please contact the number below. ? Ankit Vera MD IMG MAMMO ORDERABLES documented in this encounter Visit Diagnoses Diagnosis Encounter for screening mammogram for breast cancer documented in this encounter Care Teams Compound Filler Relationship Specialty Start Date End Date Ankit Vera MD [address] [address] PCP - General 02/05/10 documented as of this encounter
--- OUTSIDE RECORDS SUMMARY | 2024-01-21 21:46 | XMS_ITS | Encounter Summary ---
Author Organization [facility] [place] [address] Care Team Providers Care Sales Producer Name Role Phone Ankit Vera MD Primary Care Provider + [phone] Encounter Details Date Type Department Care Team (Latest Contact Info) Description 10/17/2014 3:00 PM EDT Ancillary Appointment Radiation Oncology at [address] [phone] Estefania Marte MD [facility] [place] [address] Adriana Man APRN [facility] [place] [address] Breast cancer, female, right Discharge Disposition: Home [...] PM EST documented as of this encounter Patient Instructions * Patient Instructions* Heavenly Peterson RN - 10/17/2014 3:27 PM EDT Information for Patients receiving radiation therapy to the Breast Please remember to stop taking Vitamin C and Vitamin A during your radiation therapy. Approximately two weeks after your first treatment, you may begin to experience side effects causedby the radiation. These effects may continue throughout the treatment period and not start improving until 1-2 weeks after treatment is completed. Your doctor will tell you which side effects you aremost likely to experience, when you will notice them and how long they might last. It is important to follow the appropriate instructions to minimize your discomfort. Skin Care ??? Wash skin in the treatment field with lukewarm water and mild or moisturizing soap daily. Blot skin dry with a soft towel. ??? Do not apply any ointment, salve, deodorant, perfume, cologne, cosmetic or self-remedy to the treatment area while you are undergoing radiation and for 1-2 weeks following treatment. An all natural deodorant with no aluminum can be used if necessary. ??? Moisturizing cream will be provided for you. This may be used in the treatment area once daily beginning on your first treatment day. Do not apply 2 hours before your radiation treatments. As dryness/redness develop you can use this more often. ??? Do not rub or scratch the skin in the treatment field. This includes shaving unless you use an electric razor. If your skin becomes dry or itchy, tell your nurse or doctor. If necessary, your doctor may order a medication specifically for this problem. ??? Do not use hot water bottles, heating lights, electric heating pads, or hot packs to the treatment area. ??? Keep treated areas out of the sun throughout the treatment period. Be careful of sun exposure to the treatment field for one year following treatment. Please use SPF> 30 to all exposed areas of skin and limit sun exposure. ??? Avoid tight fitting clothes. We would prefer that you wear a cotton t-shirt instead of a bra. If you are unable to go without a bra please wear a soft cotton bra without underwire. ??? Examine your skin in the treatment area daily and watch for changes. If you cannot reach the whole treatment field ask a family member to look at it and apply cream as needed. Be careful to keep the area under your breast clean and dry as this area can get irritated first. ??? You will meet with your nurse and doctor weekly. They will check your skin and help you with any side effects you are having. Please ask to see the nurse if you have concerns in between these days. ??? During the last weeks of treatment you may notice some peeling of skin and/or a moist reaction.Be sure to let us know if this happens so we can provide you with further skin care instructions.. ??? Continue to stay active, walk daily, eat healthy foods and drink several glasses of water each day. Fatigue You may notice that you feel unusually tired towards the end of treatment. This is not unusual. We recommend that you pace your activities and plan for rest periods to avoid becoming over-tired. Feel free to direct any questions or concerns you may have related to your treatment to your nurse or doctor. [facility] Radiation Oncology Our normal business hours are: Thursday - Thursday 8 AM to 5 PM [place], [place], [place] For emergent situations after hours please call for either location and ask for the Radiation Oncologist workers compensation claims specialist. documented in this encounter Progress Notes * Estefania Marte MD - 10/18/2014 4:30 PM EDT Here for sim. Since I last saw her, she underwent US guided R breast lumpectomy @ 2 o'clock & SNB 09/21/14. [facility] path review: IDC, low to focal intermed gr, tumor size 1.3 cm, no in situ type, no ALI, RM neg, 1 sentinel lymph node (neg), pT1c pN0. 10/04/14 fu w/Dr. Lewis, w/rec for eval by med onc & rad onc; plan for fu. Sim: Breast bd immobilization; flat bbs on R breast lumpectomy scar; CT through chest; 3D xrt planned. She tolerated sim well, w/o problem. Tx Plan: 3D xrt. Start xrt 10/30/14. She has been advised not to take vit C during xrt. * Heavenly Peterson RN - 10/17/2014 3:26 PM EDT Radiation Oncology Simulation Note Flor Lema is here for radiation planning , undergoing a simulation to the right breast for breast cancer treatment . Usual radiation oncology routines and purpose of on treatment visits were explained. Jeans cream provided and instructions for use reviewed Anticipatory Guidance: Barriers to Treatment/ Compliance issues identified: Patient confirms they can have no difficulties lying flat. pre- medication plan made: Referrals: documented in this encounter Plan of Treatment Not on file documented as of this encounter Visit Diagnoses Diagnosis Breast cancer, female, right documented in this encounter Care Teams Sales Producer Relationship Specialty Start Date End Date Ankit Vera MD [address] [address] PCP - General 02/05/10 documented as of this encounter
--- OUTSIDE RECORDS SUMMARY | 2024-01-21 21:46 | XMS_ITS | Encounter Summary ---
Author Organization [facility] [place] [address] Care Team Providers Care Seo Team Lead Name Role Phone Ankit Vera MD Primary Care Provider + [phone] Reason for Visit * Reason Comments Breast Cancer Encounter Details Date Type Department Care Team (Late st Contact Info) Description 02/18/2016 3:30 PM EST Office Visit Hematology/Oncology at [address] [phone] Alex Nino MD [address] [place] [phone] Breast cancer of upper-inner quadrant of [...] Sign Reading Time Taken Comments Blood Pressure 151/90 02/18/2016 3:39 PM EST Pulse 72 02/18/2016 3:39 PM EST Temperature 35 ??C (95 ??F) 02/18/2016 3:39 PM EST Respiratory Rate 16 02/18/2016 3:39 PM EST Oxygen Saturation 100% 02/18/2016 3:39 PM EST Inhaled Oxygen Concentration - - Weight 72.6 kg (160 lb) 02/18/2016 3:39 PM EST Height 158.5 cm (5' 2.4) 02/18/2016 3:39 PM EST Body Mass Index 28.89 02/18/2016 3:39 PM EST documented in this encounter Progress Notes * Alex Nino MD - 02/18/2016 3:30 PM EST Diagnosis: 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 The sentinel node was negative. (T1cN 0) SUBJECTIVE: Flor comes today for follow up. It has been a year and a half since her diagnosis and she is doing well. She made a decision to not take any estrogen blockers and continues to be comfortable with that decision. She has done well. She does have a bit of home stress and is going through a divorce currently but hopefully things are going to work out. She is dealing with that well. REIVEW OF SYSTEMS: Otherwise negative. No lumps or bumps. No new skin problems or rashes. No bone pain or anything in particular. She did injure her foot a few months ago stepping wrong and had some bruising there but that has subtly gotten better. Medications 02/15/15 1415 Medication Sig Taking? HOMEOPATHIC [...] Neurological: Negative. Hematological: Negative for adenopathy. BP 151/90 (Patient Position: Sitting) Pulse 72 Temp 35 ??C (95 ??F) (Oral) Resp 16 Ht 158.5 cm (5' 2.4) Wt 72.6 kg (160 lb) SpO2 100% BMI 28.89 kg/m2 Head: Normocephalic, without obvious abnormality, atraumatic [...] supraclavicular, and axillary nodes normal Neurologic: Normal Review of her mammograms done at [facility] in May are unremarkable. Her laboratory shows normal calcium at 9.2, ALT of 87, normal electrolytes and liver test. The CBC shows a white count of 6.4, hemoglobin 14.6, and platelet count of 233,000. ASSESSMENT/PLAN: Flor is doing well and has no evidence of recurrent breast cancer, now one and a half years after her diagnosis. We of course, would love to have her on an estrogen frida but her risk is low and it is very difficult to push her into taking it. That being said, she is doing well and she has no evidence of recurrent cancer and as time goes on her risk of recurrence becomes lower and lower, so things are quite optimistic. We will see her back in six months' time with labs or sooner if there are problems in the interim. documented in this encounter Plan of Treatment Not on file documented as of this encounter Procedures Procedure Name Priority Date/Time Associated Diagnosis Comments LAB SCAN 09/08/2016 12:00 AM EDT LAB SCAN 02/18/2016 12:00 AM EST MAMMOGRAM SCAN 05/30/2015 12:00 AM EDT documented in this encounter Results * SCAN DOC: LAB (09/08/2016 12:00 AM EDT) Narrative 09/08/2016 12:00 AM EDT Ordered by an unspecified provider. Scanning Provider MEDIA MGR SCAN EXT O RDR/RSLT * SCAN DOC: LAB (02/18/2016 12:00 AM EST) Scanning Provider MEDIA MGR SCAN EXT O RDR/RSLT * SCAN DOC: MAMMOGRAM (05/30/2015 12:00 AM EDT) Anatomical Region Laterality Modality Other Scanning Provider MEDIA MGR SCAN EXT O RDR/RSLT documented in this encounter Visit Diagnoses Diagnosis Breast cancer of upper-inner quadrant of right female breast documented in this encounter Care Teams Seo Team Lead Relationship Specialty Start Date End Date Ankit Vera MD [address] [address] PCP - General 02/05/10 documented as of this encounter
--- OUTSIDE RECORDS SUMMARY | 2024-01-21 21:46 | XMS_ITS | Encounter Summary ---
Author Organization [facility] [place] [address] Care Team Providers Care Real Estate Teacher Name Role Phone Ankit Vera MD Primary Care Provider + [phone] Reason for Visit * Reason Onset Date Comments Medication Refill 05/10/2019 Encounter Details Date Type Department Care Team (Late st Contact Info) Description 05/10/2019 Refill Obstetrics [place] [address] Sophia Alexandra MD [facility] [address] [place]STET[place] [address] Social History Tobacco Use Types Packs/Day Years [...] on filedocumented in this encounter Care Teams Real Estate Teacher Relationship Specialty Start Date End Date Ankit Vera MD [address] [address] PCP - General 02/05/10 documented as of this encounter
--- OUTSIDE RECORDS SUMMARY | 2024-01-21 21:46 | XMS_ITS | Encounter Summary ---
[facility] Organization [facility] [address] Care Team Providers Care Political Aide Name Role Phone Ankit Vera MD Primary Care Provider + [phone] Reason for Visit * Reason Comments Breast Cancer Encounter Details Date Type Department Care Team (Late st Contact Info) Description 09/10/2015 2:00 PM EDT Office Visit Hematology/Oncology at [address] [phone] Alex Nino MD [address] [place] [id number] Breast cancer of upper-inner quadrant of [...] Sign Reading Time Taken Comments Blood Pressure 132/74 09/10/2015 2:03 PM EDT Pulse 68 09/10/2015 2:03 PM EDT Temperature 36.6 ??C (97.9 ??F) 09/10/2015 2:03 PM ED T Respiratory Rate 16 09/10/2015 2:03 PM EDT Oxygen Saturation 99% 09/10/2015 2:03 PM EDT Inhaled Oxygen Concentration - - Weight 76.2 kg (168 lb) 09/10/2015 2:03 PM EDT Height 158.5 cm (5' 2.4) 09/10/2015 2:03 PM EDT copied Body Mass Index 30.33 09/10/2015 2:03 PM EDT documented in this encounter Progress Notes * Alex Nino MD - 09/10/2015 2:04 PM EDT Diagnosis: 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 The sentinel node was negative. (T1cN 0) SUBJECTIVE: Flor comes in today for follow up. She is continuing to do well overall. Is busy, active and has no difficulties. She is not having any breast pain, no bone pain. No other difficulties. Review of systems is negative. Medications 02/15/15 1415 Medication Sig Taking? HOMEOPATHIC [...] Negative. Neurological: Negative. Hematological: Negative for adenopathy. There were no vitals taken for this visit. Head: Normocephalic, without obvious abnormality, atraumatic Eyes: [...] nodes normal Neurologic: Normal Review of her lab today shows a white count of 6.92, hemoglobin 14, hematocrit 42.1 and platelet count 237. CMP shows normal electrolytes, creatinine of 0.91, normal liver tests with an ALP of 74 and a calcium of 8.9. ASSESSMENT/PLAN: Flor is doing well with no evidence of recurrent breast cancer. She is at low risk of recurrence. She is still content with her decision not to take an estrogen frida and we talked about fci followup. We will see her back in 6 months' time with labs, sooner if there are issues or problems in the interim. documented in this encounter Plan of Treatment Not on file documented as of this encounter Visit Diagnoses Diagnosis Breast cancer of upper-inner quadrant of right female breast documented in this encounter Care Teams Political Aide Relationship Specialty Start Date End Date Ankit Vera MD [address] [address] PCP - General 02/05/10 documented as of this encounter
--- OUTSIDE RECORDS SUMMARY | 2024-01-21 21:46 | XMS_ITS | Encounter Summary ---
Author Organization [facility] [place] [address] Care Team Providers Care Governor Assembler Hydraulic Name Role Phone Ankit Vera MD Primary Care Provider + [phone] Reason for Visit * Reason Onset Date Comments Medication Refill 07/16/2018 Encounter Details Date Type Department Care Team (Late st Contact Info) Description 07/16/2018 Refill Obstetrics [place] [address] Sophia Alexandra MD [facility] DR OBSTETRICS & [place] [address] Social History Tobacco Use Types Packs/Day Years [...] on filedocumented in this encounter Care Teams Governor Assembler Hydraulic Relationship Specialty Start Date End Date Ankit Vera MD [address] [address] PCP - General 02/05/10 documented as of this encounter
--- OUTSIDE RECORDS SUMMARY | 2024-01-21 21:46 | XMS_ITS | Encounter Summary ---
Author Organization [facility] [place] [address] Care Team Providers Care Inspector Barrel Name Role Phone Ankit Vera MD Primary Care Provider [phone] Encounter Details Date Type Department Care Team (Latest Contact Info) Description 08/26/2017 11:28 AM EDT - 08/26/2017 11:59 PM EDT Hospital [place] [address] Cezar Mueller MD [facility] [place] [address] Encounter for screening mammogram for breast cancer [...] Associated Diagnosis Comments MAMMO SCREENING CAD AND LALY BILATERAL Routine 08/26/2017 11:48 AM EDT Encounter for screening mammogram for breast cancer documented in this encounter Results * Mammo Screening Cad and Laly Bilateral (08/26/2017 11:48 AM EDT) Anatomical Region Laterality Modality Breast Bilateral Mammography Narrative 08/26/2017 3:49 PM EDT REASON FOR EXAM: Screening. History of right breast cancer. TECHNIQUE: CC and MLO views were obtained of both breasts. Computer aided detection was used. 3D tomosynthesis images were obtained in addition to 2D images. Comparison: The study is compared with prior images. FINDINGS: Breast density:The breasts are almost entirely fatty. There are no suspicious microcalcifications, masses, or areas of distortion. There are post treatment changes in the right breast. CONCLUSION: No mammographic evidence of malignancy. RECOMMENDATION: Routine annual screening. BIRADS CATEGORY 2: BENIGN FINDINGS * ??The [employer] and The Society of Breast Imaging recommend annual screening beginning at age 40 for the general female population. * ??Screening should continue as long as a woman is in good health and is expected to live 10 more years or longer. * ??All women should be familiar with the known benefits, limitations, and potential harms linked to breast cancer screening. They also should know how their breasts normally look and feel and report any breast changes to a health care provider right away. * ??Some women, because of their family history, a genetic tendency, or certain other factors, should be screened with MRIs along with mammograms. (The number of women who fall into this category is very small.) The patient and health care provider should discuss the patient history and decide if earlier screening and breast MRI are appropriate. Cezar Mueller MD IMG MAMMO ORDERABLE S documented in this encounter Visit Diagnoses Diagnosis Encounter for screening mammogram for breast cancer documented in this encounter Care Teams Inspector Barrel Relationship Specialty Start Date End Date Ankit Vera MD [address] [place] [address] PCP - General 02/05/10 documented as of this encounter
--- OUTSIDE RECORDS SUMMARY | 2024-01-21 21:46 | XMS_ITS | Encounter Summary ---
[place] [address] Care Team Providers Care Wind Energy Systems Installer Name Role Phone Ankit Vera MD Primary Care Provider + [phone] Encounter Details Date Type Department Care Team (Latest Contact Info) Description 09/27/2014 4:38 PM EDT - 09/27/2014 11:59 PM EDT [place] [address] Argentina Nino MD [address] [place] [address] [place] [address] Discharge Disposition: Home Social History Tobacco Use [...] Priority Date/Time Associated Diagnosis Comments SURGICAL PATHOLOGY REPORT Routine 09/27/2014 9:10 AM EDT documented in this encounter Results * Surgical Pathology Report (09/27/2014 9:10 AM EDT) Final Diagnosis ? [facility] ? Provider: ?? ARGENTINA NINO ?Pt. Name: ?? ENA FLOR CLARKE ? Acc #: ?[id number] ?Pt. ? Col Date: ?? 09/27/2014 ? /Sex: ?1950,(64 years),Female ? Rec Date: ?? 09/28/2014 ? LOC: ?[facility] ? SURGICAL PATHOLOGY ? ---Pathologic Diagnosis--- ? CONSULTATION CASE ? Outside slides labeled [id number], collection date 09/21/2014. ? Specimen (s): ??Right breast, lumpectomy ? Histologic Type: Invasive ductal carcinoma ? Tumor Grade: ??Low to focal intermediate (High, Intermediate, Low) ? Ofawtf-Owdri-Nteg ardson Score: ??5 to 6 ?Tubular Differentiation: ?? 2 ?Mitotic Rate: ?? 1 ?Nuclear Grade: ??2 (rare 3 nuclei) ? Tumor Size: ?? 1.3 cm per report (maximum diameter) ? In Situ Histologic Type: Not identified ? Microcalcificatio ns: ??NA ? Angiolymphatic Invasion: Not identified ? Perineural invasion: Not iedentified ? Nipple involvement: ?? NA ? Skin/Skeletal muscle invasion: NA ? Other Findings: Healing biopsy site ? Resection Margins (RM): ?Invasive Ca: ? Uninvolved (involved/uninvol yeison) ? Distance from closest RM(s): ??0.3 cm to nearest blue RM (inferior per ? report) ?DCIS: ?NA (involved/uninvol yeison) ? Axillary lymph nodes: Rght sentinel lymph node ? Total no. nodes sampled: ? 1 ? No. non-sentinel nodes: ?0 ??(Specimen _, block(s)_) ? No. positive for carcinoma: ??NA ??(H&E stain only) ? No. sentinel nodes: ??1 ??(H&E only) ?No. with metastases 0.02 cm or less (isolated tumor cells) 0 ?No. with metastases >0.02 cm to 0.2 cm (micrometastases) 0 ?No. with metastases >0.2 cm (macrometastases) 0 ? Total no. nodes negative for carcinoma: ??1 ? Estrogen/Progesti n receptors, and Cerb2 performed on prior biopsy. ? pTNM: ---pT1c N0 (AJCC, 7th edition, 2010) ? [facility] ? Provider: ?? ARGENTINA NINO ?Pt. Name: ?? FLOR LEMA ? Acc #: ?[id number] ?Pt. ? Col Date: ?? 09/27/2014 ? /Sex: ?1950,(64 years),Female ? Rec Date: ?? 09/28/2014 ? LOC: ?[facility] ? SURGICAL PATHOLOGY ?- - - - - - - - - - - - - - - - - - - - - - - - - - - - - ? BRTMRBLK-BRIN: B2,3,4 ? BRNRL-BRIN: B9,10 ? 09/28/14 ? LLW ? 09/28/14 Verified by: ? Susy Lopez DO ? Pathologist ? (Electronic Signature) ? The attending pathologist whose signature appears on this report has ? reviewed all diagnostic slides and has edited the gross and/or ? microscopic portion of the report in rendering the final pathologic ? diagnosis. ? ---Microscopic Description--- ? Slides reviewed, microscopic description not recorded. ? ---Gross Description--- ? [facility] ([facility]) pathology slide(s) are reviewed. ??Refer to ? Diagnosis and Specimen Submitted for specific case information. ? For the full text of the [facility] report(s) please refer to Non-DH Documentation ? Pathology in the electronic health record (eDH). ? ---Clinical Information--- ? Specimen Submitted: ? CONSULTATION CASE ? A - 13 slides labeled [id number], collection date 09/21/2014. ? [id number] ? Report to: ? [facility] ? Dept. of Pathology ? [address] [facility] ? [place], [place] ??[address] ? 09/28/2014 3:33 PM EDT [facility] Consult Case 09/27/2014 9:10 AM EDT 09/27/2014 9:10 AM EDT Argentina Nino MD PATHOLOGY/CYTOLOGY O RDERABLES Performing Organization Address City/State/[facility] Co de Phone Number [facility] [place] [address] documented in this encounter Visit Diagnoses Not on filedocumented in this encounter Care Teams Wind Energy Systems Installer Relationship Specialty Start Date End Date Ankit Vera MD [address] [address] PCP - General 02/05/10 documented as of this encounter
--- OUTSIDE RECORDS SUMMARY | 2024-01-21 21:46 | XMS_ITS | Encounter Summary ---
Author Organization [facility] [place] [address] Care Team Providers Care Psychiatry Teacher Name Role Phone Ankit Vera MD Primary Care Provider [phone] Reason for Visit * Reason Comments Follow-up Lichen Sclerosus Encounter Details Date Type Department Care Team (Late st Contact Info) Description 11/30/2017 9:00 AM EDT Office Visit Obstetrics [place] [address] Jovita Jin MD [facility] DR OBSTETRICS & [place] [address] History of breast cancer; Lichen sclerosus; Elevated [...] Sign Reading Time Taken Comments Blood Pressure 166/92 11/30/2017 9:04 AM EDT Pulse 65 11/30/2017 9:04 AM EDT Temperature - - Respiratory Rate 16 11/30/2017 9:04 AM EDT Oxygen Saturation 99% 11/30/2017 9:04 AM EDT Inhaled Oxygen Concentration - - Weight 69.9 kg (154 lb) 11/30/2017 9:04 AM EDT Height 158.5 cm (5' 2.4) 11/30/2017 9:04 AM EDT Body Mass Index 27.81 11/30/2017 9:04 AM EDT documented in this encounter Progress Notes * Jovita Jin - 11/30/2017 9:00 AM EDT [facility] Visit Flor Rollins [facility] [place] [id number] 11/30/2017 Ankit Vera MD Reason for Visit: Flor is a 67 y.o. postmenopausal female who presents for follow-up of lichen sclerosis She reports using 3mg naltrexone once nightly since September for LS. PCP prescribed through [facility]. Her friend recommended this because she uses it for lichen sclerosis. She feels that it is working well for her. She has not used clobetasol since then. No itch or vulvar irritation noted. Last mammo 08/26/17 birads category 2, repeat in one year recommended due to history of breast cancer. She had a breast exam with heme/onc last week. No LMP recorded. Patient is postmenopausal. Menopause age 56. Had regular menses. OCPs for two years followed by IUDs. from her . Last pap Ankit Vera in [place] ([facility]) 12/2015 and normal. Unsure if she had HPV testing. Hx abnormal pap smear around age late 20s but never needed colposcopy or conization, no STDs OB History Para Term AB Living 5 2 2 3 2 SAB TAB Ectopic Multiple Live Births 3 2 # Outc Date GA Lbr Robert/2nd Wgt Sex Del Anes PTL Lv 1 Term 1970 M Vag-Spont Living 2 Term 1991 M [...] HOSPITAL ENDOSCOPY ??? WISDOM TOOTH EXTRACTION 1967 Family History Problem Relation Age of Onset ??? Lung Cancer Mother age 69 ??? Diabetes Father ??? Ovarian Cancer Neg Hx ??? Uterine Cancer Neg Hx ??? Pancreatic Cancer Neg Hx ??? Colorectal Cancer Neg Hx ??? Breast Cancer Neg Hx Social History Social History [...] medication list which includes the following prescription(s): naltrexone hcl, homeopathic drugs, b complex vitamins, vitamin a, ascorbic acid (vitamin c), cholecalciferol (vitamin d3), ibuprofen, and clobetasol. Allergies Allergen Reactions ??? Darvon [Propoxyphene] GI upset ROS: no vaginal bleeding, no vaginal or vulvar itch, no recent health problems Physical Exam BP (!) 166/92 Pulse 65 Resp 16 Ht 158.5 cm (5' 2.4) Wt 69.9 kg (154 lb) SpO2 99% BMI 27.81 kg/m2 General: Well developed female. Pelvic: External genitalia normal, resolution of white scarring and minimal agglutination of labor minora posteriorly, no white scarring in the jaclyn- clitororal area or perianal. No suspicious lesions. Neuro: grossly intact Assessment: Flor is a 67 y.o. postmenopausal female who presents for follow-up of lichen sclerosis. Plan: Appropriate response to clobetasol with her past exam. She is now switched to off-label use of naltrexone once daily which is prescribed by her PCP. We discussed that this is not the recommended treatment and I encouraged her to consider ongoing application of small amount of clobetasol once weekly for maintenance. She will call for any flare in symptoms. HTN again noted today for which sheis not being treated. She does see her PCP for age-related and routine care. Reexamine next August with mammogram and breast exam. The patient was discussed with Dr. Verdin, Attending. JOVITA JIN MD, PGY4 * Chelsi Verdin MD - 11/30/2017 9:00 AM EDT I have discussed the plan of care with the resident, and agree with documentation as above. Chelsi Verdin MD * Chelsi Verdin MD - 11/30/2017 9:00 AM EDT Patient was advised by Dr Jin to follow up with her PCP for HTN. Chelsi Verdin MD documented in this encounter Plan of Treatment Not on file documented as of this encounter Visit Diagnoses Diagnosis History of breast cancer Personal history of malignant neoplasm of breast Lichen sclerosus Circumscribed scleroderma Elevated blood pressure reading with diagnosis of hypertension documented in this encounter Care Teams Psychiatry Teacher Relationship Specialty Start Date End Date Ankit Vera MD [address] [address] PCP - General 02/05/10 documented as of this encounter
--- OUTSIDE RECORDS SUMMARY | 2024-01-21 21:46 | XMS_ITS | Encounter Summary ---
Author Organization [facility] [place] [address] Care Team Providers Care Delicatessen Store Manager Name Role Phone Ankit Vera MD Primary Care Provider + [phone] Encounter Details Date Type Department Care Team (Late st Contact Info) Description 06/07/2018 3:15 PM EDT Office Visit Hematology/Oncology at [address] [phone] Adriana Man APRN [facility] [place] [address] Malignant neoplasm of upper-inner quadrant of right [...] Sign Reading Time Taken Comments Blood Pressure 153/76 06/07/2018 3:16 PM EDT Pulse 76 06/07/2018 3:16 PM EDT Temperature 36.7 ??C (98.1 ??F) 06/07/2018 3:16 PM ED T Respiratory Rate 18 06/07/2018 3:16 PM EDT Oxygen Saturation 98% 06/07/2018 3:16 PM EDT Inhaled Oxygen Concentration - - Weight 68.5 kg (151 lb) 06/07/2018 3:16 PM EDT Height 157.5 cm (5' 2) 06/07/2018 3:16 PM EDT Body Mass Index 27.62 06/07/2018 3:16 PM EDT documented in this encounter Patient Instructions * Patient Instructions* Adriana Man APRN - 06/07/2018 3:15 PM EDT She will return in 6 months with labs prior. 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 The sentinel node was negative. (T1cN 0) August 2014 Subjective: Flor comes in today for her nearly 4 year follow-up on her breast cancer. She is doing exceptionally well with no new lumps or bumps. She has no particular bone pain and is feeling well overall. Shehad her last mammogram in August of last year at . She will be due for another one in August of this year. REVIEW OF SYSTEMS: Is otherwise negative. Past medical history and social history are reviewed. Her 25-year-old son has moved in with her there is been some challenges with that overall things are going okay. Current Outpatient Medications on File Prior to Visit Medication Sig Dispense Refill ??? naltrexone HCl (NALTREXONE ORAL) Take 3 mg by mouth daily. ??? clobetasol (TEMOVATE) 0.05 % Cream Apply [...] Take 5,000 Units by mouth daily. ??? ibuprofen (ADVIL;MOTRIN) 200 mg Tablet Take [...] Neurological: Negative. Hematological: Negative for adenopathy. BP 153/76 (Patient Position: Sitting) Pulse 76 Temp 36.7 ??C (98.1 ??F) (Oral) Resp 18 Ht 157.5 cm (5' 2) Wt 68.5 kg (151 lb) SpO2 98% BMI 27.62 kg/m?? Head: Normocephalic, without obvious abnormality, atraumatic Eyes: [...] supraclavicular, and axillary nodes normal Neurologic: Normal Mammography 08/26/2017 REASON FOR EXAM: Screening. History of right breast cancer. ?? TECHNIQUE: CC and MLO views were obtained of both breasts. Computer aided detection was used. 3D tomosynthesis images were obtained in addition to 2D images. ?? Comparison: The study is compared with prior images. ?? FINDINGS: Breast density:The breasts are almost entirely fatty. ?? There are no suspicious microcalcifications, masses, or areas of distortion. There are post treatment changes in the right breast. ?? CONCLUSION: No mammographic evidence of malignancy. ?? RECOMMENDATION: Routine annual screening. ?? BIRADS CATEGORY 2: BENIGN FINDINGS Laboratory data is reviewed. Chemistries are normal with normal electrolytes potassium 4.1 creatinine 1.02 ALP 79 calcium 9.4 CBC shows white count of 6.05 hgb 14.1 hematocrit 42.8 and platelet countof 235 Assessment/plan: Flor is doing exceptionally well and has no evidence of recurrent breast cancer now nearly 4 yrs after her initial diagnosis. She is elected not to take an aromatase inhibitor or tamoxifen but fortunately is at low risk for recurrence. She will go ahead and continue her yearly mammograms with the SALES CONSULTING DIRECTOR doctors in [facility]. She will be due in August. We will see her back in 6 months time with lab sooner if there is issues in the interim. documented in this encounter Plan of Treatment Not on file documented as of this encounter Visit Diagnoses Diagnosis Malignant neoplasm of upper-inner quadrant of right breast in female, estrogen receptor positive documented in this encounter Care Teams Delicatessen Store Manager Relationship Specialty Start Date End Date Ankit Vera MD [address] [place] [address] PCP - General 02/05/10 documented as of this encounter
--- OUTSIDE RECORDS SUMMARY | 2024-01-21 21:46 | XMS_ITS | Encounter Summary ---
Author Organization [facility] [place] [address] Care Team Providers Care Sidehand Name Role Phone Ankit Vera MD Primary Care Provider + [phone] Reason for Visit * Reason Comments Radiation Treatment Encounter Details Date Type Department Care Team (Late st Contact Info) Description 11/21/2014 4:15 PM EDT Office Visit Radiation Oncology at [address] [phone] Estefania Marte MD [facility] [place] [address] Breast cancer, female, right Discharge Disposition: Home [...] Sign Reading Time Taken Comments Blood Pressure 155/91 11/21/2014 4:00 PM EDT Pulse 71 11/21/2014 4:00 PM EDT Temperature 36.6 ??C (97.8 ??F) 11/21/2014 4:00 PM ED T Respiratory Rate 16 11/21/2014 4:00 PM EDT Oxygen Saturation 99% 11/21/2014 4:00 PM EDT Inhaled Oxygen Concentration - - Weight - - Height - - Body Mass Index - - documented in this encounter Progress Notes * Estefania Marte MD - 11/21/2014 4:52 PM EDT DIAGNOSIS: Breast ca, R, IDC, low to focal intermed gr, ER+NH+, [id number]-, pT1c pN0, stage I. Hormonal tx to follow xrt. CURRENT TREATMENT DOSE: 39.9 Gy ANTICIPATED TOTAL DOSE: 42.56 Gy R breast, 52.56 Gy lumpectomy bed R breast Current # of xrt received: 15 Anticipated total # of xrt txs: 16 R breast, 20 lumpectomy bed R breast Evaluation of port verification films: Approved. For details, see electronic film record in [employer]. Changes in Medical Condition: Mild itchiness w/in irrad'd area, relieved by spencer's cream. Dr. Vera's office mailed her an rx for an antihypertensive & it is expected to arrive @ pharmacy by tomorrow. Pain?: No. Physical Exam: BP 155/91 mmHg Pulse 71 Temp(Src) 36.6 ??C (97.8 ??F) (Oral) Resp 16 SpO2 99% A&Ox3, [...] bring in the med that Dr. Vera has rx'd for her bp. documented in this encounter Plan of Treatment Not on file documented as of this encounter Visit Diagnoses Diagnosis Breast cancer, female, right documented in this encounter Care Teams Sidehand Relationship Specialty Start Date End Date Ankit Vera MD [address] [place] [address] PCP - General 02/05/10 documented as of this encounter
--- OUTSIDE RECORDS SUMMARY | 2024-01-21 21:46 | XMS_ITS | Encounter Summary ---
Author Organization [facility] [place] [address] Care Team Providers Care Fish Trapper Name Role Phone Ankit Vera MD Primary Care Provider + [phone] Encounter Details Date Type Department Care Team (Late st Contact Info) Description 07/16/2018 Orders Only Obstetrics [place] [address] April Anthony, RN Social History Tobacco Use Types Packs/Day [...] on filedocumented in this encounter Care Teams Fish Trapper Relationship Specialty Start Date End Date Ankit Vera MD [address] [address] PCP - General 02/05/10 documented as of this encounter
--- OUTSIDE RECORDS SUMMARY | 2024-01-21 21:46 | XMS_ITS | Encounter Summary ---
Author Organization [facility] [place] [address] Care Team Providers Care Supervisor Rod Placing Name Role Phone Ankit Vera MD Primary Care Provider + [phone] Encounter Details Date Type Department Care Team (Latest Contact Info) Description 09/21/2014 12:10 AM EDT - 09/21/2014 11:59 PM EDT Hospital Encounter Radiology Library at [facility] [address] [place] [address] David Saleh MD [facility] [place] [address] Discharge Disposition: Home Social History Tobacco Use [...] Associated Diagnosis Comments FILM LIBRARY STORAGE ONLY MAMMO Routine 09/21/2014 12:10 AM EDT documented in this encounter Results * Film Library- Storage Only Mammo (09/21/2014 12:10 AM EDT) Narrative [facility] - 05/04/2017 3:25 PM EST This exam is for storage only and is auto-finalizing. David Saleh MD IMG FILM LIBRARY ORD ERABLES [place], [place] documented in this encounter Visit Diagnoses Not on filedocumented in this encounter Care Teams Supervisor Rod Placing Relationship Specialty Start Date End Date Ankit Vera MD [address] [address] PCP - General 02/05/10 documented as of this encounter
--- OUTSIDE RECORDS SUMMARY | 2024-01-21 21:46 | XMS_ITS | Encounter Summary ---
Author Organization [facility] [place] [address] Care Team Providers Care Hydraulic Riveter Name Role Phone Ankit Vera MD Primary Care Provider [phone] Encounter Details Date Type Department Care Team (Latest Contact Info) Description 09/21/2014 12:05 AM EDT - 09/21/2014 12:09 AM EDT Hospital Encounter Radiology Library at [facility], [place] [address] [place] [address] [facility] [place] [address] Discharge Disposition: Home Social History Tobacco Use [...] Name Priority Date/Time Associated Diagnosis Comments FILM LIBRARY-STORAGE ONLY US BREAST Routine 09/21/2014 12:05 AM EDT documented in this encounter Results * Film Library Storage Only US Breast (09/21/2014 12:05 AM EDT) Narrative [facility] - 05/04/2017 3:24 PM EST This exam is for storage only and is auto-finalizing. David Saleh MD IMG FILM LIBRARY ORD ERABLES [place], [place] documented in this encounter Visit Diagnoses Not on filedocumented in this encounter Care Teams Hydraulic Riveter Relationship Specialty Start Date End Date Ankit Vera MD [address] [address] PCP - General 02/05/10 documented as of this encounter
--- OUTSIDE RECORDS SUMMARY | 2024-01-21 21:46 | XMS_ITS | Encounter Summary ---
Author Organization [facility] [place] [address] Care Team Providers Care Web Marketing Assistant Name Role Phone Ankit Vera MD Primary Care Provider [phone] Encounter Details Date Type Department Care Team (Late st Contact Info) Description 05/13/2017 1:30 PM EST - 05/13/2017 2:15 PM EST Surgery Gastroenterology at [facility] [place] [address] Panda Yates MD [facility] [place] [address] COLONOSCOPY, DIAGNOSTIC (WRVU 3.26) Social History Tobacco Use Types Packs/Day Years [...] Sign Reading Time Taken Comments Blood Pressure 135/59 05/13/2017 2:10 PM EST Pulse 57 05/13/2017 1:48 PM EST Temperature - - Respiratory Rate 16 05/13/2017 1:50 PM EST Oxygen Saturation 95% 05/13/2017 2:10 PM EST Inhaled Oxygen Concentration - - [...] to be checked. Thursday-Thursday Same Day Endo [phone] 7a-8p Otherwise contact [phone] and ask to speak to the clinical documentation consultant subway conductor Follow up care is a ojeda part [...] to be checked. Thursday-Thursday Same Day Endo [phone] 7a-8p Otherwise contact [phone] and ask to speak to the clinical documentation consultant subway conductor Follow up care is a ojeda part [...] Consent signed. Hailee Merida MD Gastroenterology Fellow #[id number] documented in this encounter Miscellaneous Notes * Op Note - Panda Yates MD - 05/13/2017 1:47 PM EST [facility] Operative Note Patient Name: Flor Lema : [id number] MR#: [id number] Case Date: 05/13/2017 Surgeon: Surgeon(s) and Role: [...] * COLONOSCOPY (05/13/2017 12:52 PM EST) COLONOSCOPY [facility] Endoscopy Procedure Date: 05/13/2017 12:52 PM ? Patient Name: Flor Lema ? Date of : 1950 ? Age: 67 ? Order #: [id number] ? Instrument Name: [id number] ? Procedure: ? Colonoscopy Indications: ? Screening for colorectal malignant ? neoplasm, personal history of breast ? cancer. Providers: ? Hailee Blackman ? MD Fuad, Jared Florez, ? Network/Telecom Engineer, Dahiana Hernández RN Referring MD: ?Ankit Vera [...] MAR Action Action Date Dose Rate Site fentaNYL 50 mcg/mL multi-dose injection ONCE PRN, Starting on Thu05/13/17 at 1320, Until Thu05/13/17 at 1632, Intra-Operative (Intra-Procedure), Routine Given 05/13/2017 1:25 PM EST 50 mcg Right Arm Given 05/13/2017 1:22 PM EST 50 mcg Ri ght Arm Given 05/13/2017 1:20 PM EST 50 mcg Ri ght Arm lactated Ringers infusion 100 mL/hr, Intravenous, CONTINUOUS, Starting on Thu05/13/17 at 1315, Until Thu05/13/17 at 1632, Endoscopy (Day of Procedure) midazolam (PF) (VERSED) 1 mg/mL multi-dose injection ONCE PRN, Starting on Thu05/13/17 at 1320, Until Thu05/13/17 at 1632, Intra-Operative (Intra-Procedure), Routine Given 05/13/2017 1:25 PM EST 1 mg Given 05/13/2017 1:23 PM EST 1 mg Given 05/13/2017 1:20 PM EST 1 mg documented in this encounter Active and Recently [...] RN) documented in this encounter Care Teams Web Marketing Assistant Relationship Specialty Start Date End Date Ankit Vera MD [address] [address] PCP - General 02/05/10 documented as of this encounter
--- OUTSIDE RECORDS SUMMARY | 2024-01-21 21:46 | XMS_ITS | Encounter Summary ---
Author Organization [facility] [place] [address] Care Team Providers Care Computer Programming Manager Name Role Phone Ankit Vera MD Primary Care Provider + [phone] Encounter Details Date Type Department Care Team (Late st Contact Info) Description 12/30/2016 Telephone Obstetrics [place] [phone] Jovita Jin MD [facility] DR OBSTETRICS & [place] [address] Social History Tobacco Use Types Packs/Day Years [...] encounter Miscellaneous Notes * Telephone Encounter - Jovita Jin - 12/30/2016 9:23 AM EDT Results Note Per Ria's request, I emailed her the result of her vulvar biopsy which confirmed lichen sclerosis.She is to apply clobetasol nightly to the affected area and return for a six week follow-up to assess response to the medication. DIAGNOSIS A - Vulvar biopsy: 1. Lichen sclerosus JOVITA JIN MD PGY3 documented in this encounter Plan of Treatment Not on file documented as of this encounter Visit Diagnoses Not on filedocumented in this encounter Care Teams Computer Programming Manager Relationship Specialty Start Date End Date Ankit Vera MD [address] [place] [address] PCP - General 02/05/10 documented as of this encounter
--- OUTSIDE RECORDS SUMMARY | 2024-01-21 21:46 | XMS_ITS | Encounter Summary ---
Author Organization [facility] Address [facility] [place] [address] Care Team Providers Care Paper Twister Tender Name Role Phone Ankit Vera MD Primary Care Provider [phone] Encounter Details Date Type Department Care Team (Latest Contact Info) Description 09/21/2014 - 09/21/2014 12:04 AM EDT Hospital Encounter Radiology Library at [facility] [place] [address] [place] [address] David Saleh MD [facility] [place] [address] Discharge Disposition: Home Social History Tobacco Use [...] FILM LIBRARY STORAGE ONLY MAMMO Routine 09/21/2014 12:00 AM EDT documented in this encounter Results * Film Library- Storage Only Mammo (09/21/2014 12:00 AM EDT) Narrative [facility] - 05/04/2017 1:04 PM EST This exam is for storage only and is auto-finalizing. David Saleh MD [facility] FILM LIBRARY ORD ERABLES Performing Organization Address City/State/[facility] Co de Phone Number [place], [place] documented in this encounter Visit Diagnoses Not on filedocumented in this encounter Care Teams Paper Twister Tender Relationship Specialty Start Date End Date Ankit Vera MD [address] [address] PCP - General 02/05/10 documented as of this encounter
--- OUTSIDE RECORDS SUMMARY | 2024-01-21 21:46 | XMS_ITS | Encounter Summary ---
Author Organization [facility] [place] [address] Care Team Providers Care Easter Bunny Name Role Phone Ankit Vera MD Primary Care Provider + [phone] Reason for Visit * Reason Comments Breast Cancer Encounter Details Date Type Department Care Team (Late st Contact Info) Description 11/27/2017 1:30 PM EDT Office Visit Hematology/Oncology at [address] [phone] Alex Nino MD [address] [place] [address] Malignant neoplasm of upper-inner quadrant of [...] Sign Reading Time Taken Comments Blood Pressure 131/65 11/27/2017 1:34 PM EDT Pulse 68 11/27/2017 1:34 PM EDT Temperature 36.2 ??C (97.2 ??F) 11/27/2017 1:34 PM ED T Respiratory Rate 16 11/27/2017 1:34 PM EDT Oxygen Saturation 98% 11/27/2017 1:34 PM EDT Inhaled Oxygen Concentration - - Weight 70.5 kg (155 lb 6.4 oz) 11/27/2017 1:34 P M EDT Height 158.5 cm (5' 2.4) 11/27/2017 1:34 PM EDT copied Body Mass Index 28.06 11/27/2017 1:34 PM EDT documented in this encounter Progress Notes * Alex Nino MD - 11/27/2017 1:30 PM EDT Diagnosis: 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 The sentinel node was negative. (T1cN 0) August 2014 Subjective: Flor comes in today for her 3 1/4 year follow-up on her breast cancer. She is doing exceptionally well with no new lumps or bumps. She has no particular bone pain and is feeling well overall. She does tell me she is no longer going to be able to see her surgeon at [facility] for her mammograms as that surgeon is retiring. We talked about setting up her mammography through her [facility]MENT STRATEGIST appointments of [facility] is already discussed that with them and [...] Chemistries are normal with normal electrolytes potassium 3.7 creatinine 0.86 ALP 79 calcium 8.7 CBC shows white count of 5.62 him 114.5 hematocrit 43.9 and platelet count of 243 Assessment/plan: Flor is doing exceptionally well and has no evidence of recurrent breast cancer now over 3 years after her initial diagnosis. She is elected not to take an aromatase inhibitor or tamoxifen but fortunately is at low risk for recurrence. She will go ahead and set up her yearly mammograms with the INVESTMENT STRATEGIST doctors in [facility] and I suggested she have her [...] positive documented in this encounter Care Teams Easter Bunny Relationship Specialty Start Date End Date Ankit Vera MD [address] [address] PCP - General 02/05/10 documented as of this encounter
--- OUTSIDE RECORDS SUMMARY | 2024-01-21 21:46 | XMS_ITS | Encounter Summary ---
Author Organization [facility] [place] [address] Care Team Providers Care Addiction Counselor Name Role Phone Ankit Vera MD Primary Care Provider + [phone] Reason for Visit * Reason Comments Breast Cancer Encounter Details Date Type Department Care Team (Late st Contact Info) Description 09/08/2016 2:00 PM EDT Office Visit Hematology/Oncology at [address] [phone] Alex Nino MD [address] [place] [address] Breast cancer of upper-inner quadrant of [...] Sign Reading Time Taken Comments Blood Pressure 127/80 09/08/2016 2:11 PM EDT Pulse 73 09/08/2016 2:11 PM EDT Temperature 36.9 ??C (98.4 ??F) 09/08/2016 2:11 PM ED T Respiratory Rate 16 09/08/2016 2:11 PM EDT Oxygen Saturation 99% 09/08/2016 2:11 PM EDT Inhaled Oxygen Concentration - - Weight 71.9 kg (158 lb 9.6 oz) 09/08/2016 2:11 P M EDT Height 158.5 cm (5' 2.4) 09/08/2016 2:11 PM EDT copied Body Mass Index 28.64 09/08/2016 2:11 PM EDT documented in this encounter Patient Instructions * Patient Instructions* Alex Nino MD - 09/08/2016 2:00 PM EDT documented in this encounter Progress Notes * Alex Nino MD - 09/08/2016 2:00 PM EDT Diagnosis: 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 The sentinel node was negative. (T1cN 0) SUBJECTIVE: Flor comes in today for a 2 year followup on her breast cancer. She had her mammograms back at [facility] again this spring and they were fine. REVIEW OF SYSTEMS: Is otherwise negative. She does not have any lumps or bumps. No abnormal pain. She has been physically active and has no difficulties. Current Outpatient Prescriptions on File Prior to Visit Medication Sig Dispense Refill ??? HOMEOPATHIC DRUGS (RAUWOLFIA ORAL) Take by [...] Neurological: Negative. Hematological: Negative for adenopathy. BP 127/80 (Patient Position: Sitting) Pulse 73 Temp 36.9 ??C (98.4 ??F) (Oral) Resp 16 Ht 158.5 cm (5' 2.4) Comment: copied Wt 71.9 kg (158 lb 9.6 oz) SpO2 99% BMI 28.64 kg/m2 Head: Normocephalic, without obvious abnormality, atraumatic [...] supraclavicular, and axillary nodes normal Neurologic: Normal . Review of her laboratory today shows a white count of 5.76, hemoglobin 14.4, hematocrit 42.8, platelets 224. Neutrophils are 3.21. CMP shows normal electrolytes. Creatinine of 0.89, ALP of 83, albumin of 4.1. Calcium is 9.2. ASSESSMENT/PLAN: Flor is doing well with no evidence of recurrent breast cancer, now 2 years after her initial diagnosis. She elected not to take estrogen frida and is doing well. As time goes on, with no recurrence her likelihood of being cured goes up. I am certainly glad to see she is disease free at this point. We will see her back in 6 months time with lab, sooner if there are issues in the interim. documented in this encounter Plan of Treatment Not on file documented as of this encounter Visit Diagnoses Diagnosis Breast cancer of upper-inner quadrant of right female breast documented in this encounter Care Teams Addiction Counselor Relationship Specialty Start Date End Date Ankit Vera MD [address] [place] [address] PCP - General 02/05/10 documented as of this encounter
--- OUTSIDE RECORDS SUMMARY | 2024-01-21 21:46 | XMS_ITS | Encounter Summary ---
Author Organization [facility] [place] [address] Care Team Providers Care Recycling Operator Name Role Phone Ankit Vera MD Primary Care Provider + [phone] Reason for Visit * Reason Comments Breast Cancer Encounter Details Date Type Department Care Team (Late Contact Info) Description 10/05/2014 1:30 PM EDT Follow-Up Hematology/Oncology at [address] [phone] Alex Nino MD [address] [place] [address] Malignant neoplasm of female breast, right [...] Sign Reading Time Taken Comments Blood Pressure 162/86 10/05/2014 1:16 PM EDT Pulse 81 10/05/2014 1:16 PM EDT Temperature 36.7 ??C (98.1 ??F) 10/05/2014 1:16 PM ED T Respiratory Rate 16 10/05/2014 1:16 PM EDT Oxygen Saturation 99% 10/05/2014 1:16 PM EDT Inhaled Oxygen Concentration - - Weight 74.2 kg (163 lb 8 oz) 10/05/2014 1:16 PM EDT Height 158.5 cm (5' 2.4) 10/05/2014 1:16 PM EDT Body Mass Index 29.52 10/05/2014 1:16 PM EDT documented in this encounter Progress Notes * Alex Nino MD - 10/05/2014 2:23 PM EDT Diagnosis: 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 The sentinel node was negative. (T1cN 0) Subjective: Flor comes in today for followup after she had her lumpectomy and sentinel node dissection. There were really no surprises. Her tumor was a little bit larger than expected at 1.3 cm but remained a low-grade tumor, and her sentinel node was negative. She did well with the surgery and only had a little bit of minimal discomfort and is healing well. We did go over her pathology report in detail. I also did a risk analysis and analysis for benefit of chemotherapy through [employer] [facility], and her benefit from chemotherapy as far as improvement in cure rates is only 0.5%. Current Outpatient Prescriptions on File Prior to Visit Medication Sig Dispense Refill ??? b complex vitamins Capsule Take 1 [...] facility-administered medications on file prior to visit. Review of Systems Constitutional: Negative for fever, [...] Neurological: Negative. Hematological: Negative for adenopathy. BP 162/86 Pulse 81 Temp(Src) 36.7 ??C (98.1 ??F) (Oral) Resp 16 Ht 158.5 cm (5' 2.4) Wt 74.163 kg (163 lb 8 oz) BMI 29.52 kg/m2 SpO2 99% Head: Normocephalic, without obvious abnormality, atraumatic Eyes: [...] supraclavicular, and axillary nodes normal Neurologic: Normal The patient's pathology shows a 13-mm tumor, infiltrating ductal, with the tumor being low grade, no lymphovascular invasion. The tumor is ER/MA positive, HER2/zayda negative. Her single sentinel node was negative. Assessment/Plan: Flor has a small low-grade infiltrating ductal carcinoma. Overall she has a very good cure rate. Adjuvant therapy can, however, improve cure rates. In her case, however, chemotherapy would only improve her overall cure rare by about half of a percent. Estrogen blockers have more potential for improvement. They can improve things by 1% to 2% overall with much less side effects overall. We discussed both aromatase inhibitors, which she has some hesitancy regarding because of the risk of osteoporosis. We also discussed the possibility of taking a selective estrogen receptor modulator such as tamoxifen which actually helps with osteoporosis but has other side effects as well. After discussions today, I think we decided together to consider an aromatase inhibitor after the completion of radiation therapy. Once she heals up from her surgery she will need her local radiation therapy to decrease local recurrence risk. I would like to see her back at the end of radiation therapy with plans on starting her on Arimidex 1 mg daily at that time. documented in this encounter Plan of Treatment Not on file documented as of this encounter Visit Diagnoses Diagnosis Malignant neoplasm of female breast, right documented in this encounter Care Teams Recycling Operator Relationship Specialty Start Date End Date Ankit Vera MD [address] [place] [address] PCP - General 02/05/10 documented as of this encounter
--- OUTSIDE RECORDS SUMMARY | 2024-01-21 21:46 | XMS_ITS | Encounter Summary ---
[facility] [place] [address] Care Team Providers Care Review Assistant Name Role Phone Ankit Vera MD Primary Care Provider + [phone] Reason for Visit * Reason Comments Breast Cancer Encounter Details Date Type Department Care Team (Late st Contact Info) Description 12/07/2014 2:30 PM EDT Follow-Up Hematology/Oncology at [address] [phone] Alex Nino MD [address] [place] [address] Malignant neoplasm of female breast, right [...] Sign Reading Time Taken Comments Blood Pressure 161/96 12/07/2014 2:26 PM EDT Pulse 76 12/07/2014 2:26 PM EDT Temperature 36.7 ??C (98.1 ??F) 12/07/2014 2:26 PM ED T Respiratory Rate 16 12/07/2014 2:26 PM EDT Oxygen Saturation 100% 12/07/2014 2:26 PM EDT Inhaled Oxygen Concentration - - Weight 72.6 kg (160 lb) 12/07/2014 2:26 PM EDT Height 158.5 cm (5' 2.4) 12/07/2014 2:26 PM EDT Body Mass Index 28.89 12/07/2014 2:26 PM EDT documented in this encounter Progress Notes * Alex Nino MD - 12/07/2014 2:35 PM EDT Diagnosis: 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 The sentinel node was negative. (T1cN 0) Subjective: Flor comes in today for followup. She has finished her radiation therapy and notes that it went a lot better than she expected. We spent a long time today discussing hormone blockers and the reason for recommendations. We went over adjuvant online and her risk of dying from breast cancer and why we would recommend a frida. We talked about followup of breast cancer and her actual risk of reoccurrence. We went over side effects of tamoxifen and also aromatase inhibitors. She is doing well at the current time and really has no issues or problems. Current Outpatient Prescriptions on File Prior to Visit Medication Sig Dispense Refill ??? EMOLLIENT BASE (CREAM BASE TOP) Apply topically. Jeans Cream. Apply to area of radiation twice a day but no less than 2 hours before a treatment. ??? b complex vitamins Capsule Take 1 capsule by mouth daily. ??? ascorbic acid (VITAMIN C) 1,000 mg Tablet Take 1,000 mg by mouth 3 times daily. ??? Cholecalciferol, Vitamin D3, (VITAMIN D-3) 2,000 unit Capsule Take 5,000 Units by mouth daily. ??? UNABLE TO FIND Calcium with magnesium 1200/600mg daily ??? ibuprofen (ADVIL;MOTRIN) 200 mg Tablet Take 200 mg by mouth every 6 hours as needed for Pain. ??? vitamin A (AQUASOL) 10,000 unit Capsule Take 10,000 Units by mouth daily. No current facility-administered medications on file prior [...] Neurological: Negative. Hematological: Negative for adenopathy. BP 161/96 mmHg Pulse 76 Temp(Src) 36.7 ??C (98.1 ??F) (Oral) Resp 16 Ht 158.5 cm (5' 2.4) Wt 72.576 kg (160 lb) BMI 28.89 kg/m2 SpO2 100% Head: Normocephalic, without obvious [...] axillary nodes normal Neurologic: Normal Assessment/Plan: Flor is very concerned about side effects from taking either aromatase inhibitors or tamoxifen. We went over all of them both expected and those more rare. As far as the aromatase inhibitors, she has a lot of fear of developing osteoporosis as time goes on. As far as tamoxifen, she has concerns regarding the one in 1200 risk of uterine cancer and the small risk of stroke, blood clot, or DVT. She, however, is more fearful of osteoporosis than she would be of the risks associated with tamoxifen. We talked about the fact that blockers would improve her mortality rate by only about 2.5% from breast cancer. After discussing things, she arrived at a decision that she would like to try tamoxifen. We talked about taking it for five years. She tells me she does not want to start it for about a month because of some traveling she is going to be doing. We called in a prescription of tamoxifen 20 mg one p.o. daily #30 and we will see her back in two months' time with lab to see how she is doing on the medication and whether she wants to continue with it. I do think we answered all of her questions today and she has a good understanding of things. I think, however, she has been reading also a lot on the internet and there is always a lot of negative that is easy to find as well as the positive but in general one sees more information on the people that have had problems rather than those that have not. She understands all of that and I think is trying to make the right decision for herself. She knows we will continue to follow her either way. documented in this encounter Plan of Treatment Not on file documented as of this encounter Procedures Procedure Name Priority Date/Time Associated Diagnosis Comments LAB SCAN 02/05/2015 12:00 AM EST documented in this encounter Results * SCAN DOC: LAB (02/05/2015 12:00 AM EST) Scanning Provider MEDIA MGR SCAN EXT O RDR/RSLT documented in this encounter Visit Diagnoses Diagnosis Malignant neoplasm of female breast, right documented in this encounter Care Teams Review Assistant Relationship Specialty Start Date End Date Ankit Vera MD [address] [address] PCP - General 02/05/10 documented as of this encounter
--- OUTSIDE RECORDS SUMMARY | 2024-01-21 21:46 | XMS_ITS | Encounter Summary ---
Author Organization [facility], Located Within [facility] [place] [address] Care Team Providers Care Glass Belt Sander Name Role Phone Ankit Vera MD Primary Care Provider [phone] Encounter Details Date Type Department Care Team (Latest Contact Info) Description 08/27/2018 2:44 PM EDT - 08/27/2018 11:59 PM EDT Hospital Encounter Mammography/[place] [address] Aziza Hightower MD [facility] OBST[facility]RICS AND GYNECOLOGY [place] [phone] Screening breast examination Discharge Disposition: Home Social History Tobacco Use [...] until the next clinic visit 30 g 07/16/2018 05/10/2019 documented as of this encounter Plan of Treatment Not on file documented as of this encounter Procedures Procedure Name Priority Date/Time Associated Diagnosis Comments MAMMO SCREENING CAD AND JAIR BILATERAL Routine 08/27/2018 3:23 PM EDT Screening breast examination documented in this encounter Results * Mammo Screening Cad and Jair Bilateral (08/27/2018 3:23 PM EDT) Anatomical Region Laterality Modality Breast Bilateral Mammography Narrative 08/29/2018 2:34 PM EDT EXAMINATION: MAMMO SCREENING CAD AND JAIR [...] screening. BIRADS CATEGORY 2: BENIGN FINDINGS * ??Medical organizations agree that annual screening mammography beginning at age 40 saves the most lives. * ??The risks of screening are negligible compared to dying from breast cancer or suffering from more aggressive treatment required when detected at a later stage. * ??No woman is at low risk for breast cancer. * ??Some women, because of their family history, a genetic tendency, or certain other factors, should be screened with breast MRI along with mammograms. (The number of women who fall into this category is very small). The patient and health care provider should discuss the patient history and decide if earlier screening and breast MRI are appropriate. * ??Screening should continue as long as a woman is in good health and is expected to live 10 years or longer. * ??Screening mammography may not detect 10-15% of breast cancers.\ * ??Women should report any breast changes to a health care provider right away. Thank you for letting us participate in the care of this patient. For questions regarding this report, please contact the number below. ? Aziza Hightower MD IMG MAMMO ORDERABLES documented in this encounter Visit Diagnoses Diagnosis Screening breast examination Other screening breast examination documented in this encounter Care Teams Glass Belt Sander Relationship Specialty Start Date End Date Ankit Vera MD [address] [address] PCP - General 02/05/10 documented as of this encounter
--- OUTSIDE RECORDS SUMMARY | 2024-01-21 21:46 | XMS_ITS | Encounter Summary ---
Author Organization [facility] [place] [address] Care Team Providers Care Electrolytic De Scaler Name Role Phone Ankit Vera MD Primary Care Provider + [phone] Reason for Visit * Reason Comments Radiation Follow-up breast cancer Encounter Details Date Type Department Care Team (Late st Contact Info) Description 11/08/2015 3:15 PM EDT Office Visit Radiation Oncology at [address] [phone] Daysi Dyson APRN [address] [place] [address] [place] [address] Malignant neoplasm of right female breast, unspecified site of breast Social History Tobacco [...] Sign Reading Time Taken Comments Blood Pressure 138/77 11/08/2015 3:11 PM EDT Pulse 77 11/08/2015 3:11 PM EDT Temperature 36.5 ??C (97.7 ??F) 11/08/2015 3:11 PM ED T Respiratory Rate 18 11/08/2015 3:11 PM EDT Oxygen Saturation 98% 11/08/2015 3:11 PM EDT Inhaled Oxygen Concentration - - Weight 76.6 kg (168 lb 14.4 oz) 11/08/2015 3:11 PM EDT Height 158.5 cm (5' 2.4) 11/08/2015 3:11 PM EDT copy Body Mass Index 30.5 11/08/2015 3:11 PM EDT documented in this encounter Progress Notes * Daysi Dyson, SWATCH FOLDER - 11/08/2015 3:15 PM EDT Patient ID: Flor Lema is a 65 y.o. 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 She was treated with lumpectomy followed by adjuvant radiation therapy to a dose of 52.56 Gy completed on 11/28/2014. She declined to start SHARMA post radiation. She is in clinic for scheduled followup and to review her breast cancer survivor care plan. HPI 64 y/o f who presented w/abnlity [...] bx. L breast w/o suspicious finding. ?? [place] path review: IDC, low gr, ER+ID+, Syg2wfa-. ?? 08/09/[address] Lewis, w/exam showing superior R breast w/minimal bruising & no palpablebreast mass/adenopathy; discussion about tx options, including surgery, xrt, & rec for med onc consult. NLOC lumpectomy w/SNB sched'd for 09/21/14. ?? 08/09/14 CXR: No met dz. 09/21/2014-- US guided R breast lumpectomy @ 2 o'clock & SNB ?? [place] path review: IDC, low to focal intermed [...] Cancer Detection abnormal mammogram 07/05/2014 Family History Maternal great aunt Menopausal Status at Diagnosis post-menopausal Date of Diagnostic Biopsy 08/02/2014 Local Surgery Lumpectomy by Dr Lewis at [facility] Axillary Management [place] nodes alone--0+ of 1 Lymph node removed Date of Last Surgical Procedure 09/21/2014--lumpectomy Histology Invasive ductal carcinoma Tumor Staging from Staging System [id number] T1= tumor that is less than 2 cm N0= no involved lymph nodes M0 no distant spread Stage 1--good prognosis Size of Primary Malignancy 1.3 cm Grade Low grade Margin negative ER--estrogen receptor positive ID--progesterone receptor positive HER-2 negative Radiation therapy Dates [...] post XRT and she never started it. Surveillance: ?? Patient Active Problem List Diagnosis Code ??? Breast cancer of upper-inner quadrant of right female breast C50.211 Past Surgical History Procedure Laterality Date ??? [place] tooth extraction 1966 ??? section Bilateral 08/1991 ??? Breast biopsy 2014 Allergies Allergen Reactions ??? Darvon [Propoxyphene] GI upset Current Outpatient Prescriptions on File Prior to Visit Medication Sig Dispense Refill ??? HOMEOPATHIC DRUGS (RAUWOLFIA ORAL) Take by mouth. Patient takes this for blood pressure. ??? EMOLLIENT BASE (CREAM BASE TOP) Apply [...] facility-administered medications on file prior to visit. Social History Substance Use Topics ??? Smoking status: Former Smoker Types: Cigarettes Quit date: 07/30/1973 ??? Smokeless tobacco: Never Used Comment: smoked a little in college ??? Alcohol use No Comment: Once a month Patient and her have been estranged since the time of her diagnosis. He is not living with her. Her 24 year old son lives with her. He and many friends have been very supportive. 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 Interim History: Ms Lema (Ria) reports that she is doing well generally. She has no concerns related to her breasts. She has some mild non distressing tenderness. She has not started the SHARMA and does not intend to take it after review of the risk/benefit and SE of both SHARMA and an AI. Dr Nino is aware. She reports no persistent cough, no shortness of breath, no persistent headache, no skeletal pain, no chest wall tightness, no masses, no nipple discharge. She is very active and exercises daily. Shecontinues regular followup with her medical oncologist Dr Nino and her surgeon Dr Hidalgo. Review of Systems Constitutional: Negative. Negative for activity change, appetite change, chills, fatigue, fever andunexpected weight change. HENT: Negative. Respiratory: Negative. Negative for cough, chest tightness, shortness of breath and wheezing. Cardiovascular: Negative. Negative for chest pain and leg swelling. Gastrointestinal: Negative. Genitourinary: Negative. Negative for difficulty urinating, dysuria, enuresis, pelvic pain and vaginal bleeding. Post menopausal Musculoskeletal: Negative. Neurological: Negative. Negative for dizziness, weakness and headaches. Hematological: Negative. Psychiatric/Behavioral: Negative. Vitals Office Visit from 11/08/2015 in [facility] Radiation Oncology Weight - Scale 76.6 kg (168 lb 14.4 oz) Height 158.5 cm (5' 2.4) [copy] BSA (Calculated - sq m) 1.84 sq meters BMI (Calculated) 30.6 Temp 36.5 ??C (97.7 ??F) Temp Source Oral Heart Rate 77 Heart Rate Source NIBP Resp 18 BP 138/77 BP Location Left arm Patient Position Sitting SpO2 98 % Objective: Physical Exam Constitutional: She is oriented [...] Assessment and Plan: Flor Lema is a 65 y.o. female with breast ca, R, IDC, low to focal intermed gr, ER+ID+, Gqj4yzz-, pT1c pN0, stage I. She was treated with lumpectomy followed by adjuvant radiation therapy to a dose of 52.56 Gy completed on 11/28/2014. She declined to start SHARMA post radiation. She is doing well clinically with KATHERIN. She is coping with social stressors with support of her friends and her son. She is exercising regularly. We will request a copy of her most recent mammogram Follow-up for a total of 35 minutes, with 30 minutes of that time spent discussing her current clinical condition, reviewing her Breast Cancer Survivor Care Plan which includes review of her breast cancer history, treatment history, health behaviors to promote wellness, ongoing surveillance, late effects of treatments and symptoms to report as well as planning further management. We will see patient again in one year. She will be seen by Dr Nino and her surgeon in the interim. Patient is to call with any questions or concerns in the interim. documented in this encounter Plan of Treatment Not on file documented as of this encounter Visit Diagnoses Diagnosis Malignant neoplasm of right female breast, unspecified site of breast documented in this encounter Care Teams Electrolytic De Scaler Relationship Specialty Start Date End Date Ankit Vera MD [address] [place] [address] PCP - General 02/05/10 documented as of this encounter
--- OUTSIDE RECORDS SUMMARY | 2024-01-21 21:46 | XMS_ITS | Encounter Summary ---
Author Organization [facility] [place] [address] Care Team Providers Care Press Shop Supervisor Name Role Phone Ankit Vera MD Primary Care Provider + [phone] Reason for Visit * Reason Comments Other Encounter Details Date Type Department Care Team (Late st Contact Info) Description 10/16/2014 Telephone Radiation Oncology at [address] [phone] Heavenly Peterson RN Social History Tobacco Use [...] Telephone Encounter - Heavenly Peterson RN - 10/16/2014 12:06 PM EDT Telephone call from patient who states that she can be claustrophobic in very tight spaces and wanted to find out if this might be a problem for her during tomorrows CT sim. I described the CT table to her and she decided that it sounded like it would be a breeze for me. She denies any difficulties with range of motion of her upper extremities and reports that she has recovered from her latest surgery well. Plan: CT simulation tomorrow as planned. documented in this encounter Plan of Treatment Not on file documented as of this encounter Visit Diagnoses Not on filedocumented in this encounter Care Teams Press Shop Supervisor Relationship Specialty Start Date End Date Ankit Vera MD [address] [place] [address] PCP - General 02/05/10 documented as of this encounter
--- OUTSIDE RECORDS SUMMARY | 2024-01-21 21:46 | XMS_ITS | Encounter Summary ---
Author Organization [facility] [place] [address] Care Team Providers Care Dredging Inspector Name Role Phone Ankit Vera MD Primary Care Provider + [phone] Reason for Visit * Reason Comments Radiation Follow-up Encounter Details Date Type Department Care Team (Late st Contact Info) Description 01/08/2015 3:00 PM EDT Office Visit Radiation Oncology at [address] [phone] Estefania Marte MD [facility] [place] [address] Breast cancer, female, right Social History Tobacco Use Types Packs/Day Years [...] Sign Reading Time Taken Comments Blood Pressure 136/79 01/08/2015 3:28 PM EDT Pulse 72 01/08/2015 3:28 PM EDT Temperature 36.7 ??C (98.1 ??F) 01/08/2015 3:28 PM ED T Respiratory Rate 18 01/08/2015 3:28 PM EDT Oxygen Saturation 99% 01/08/2015 3:28 PM EDT Inhaled Oxygen Concentration - - Weight 74.2 kg (163 lb 8 oz) 01/08/2015 3:28 PM EDT Height - - Body Mass Index 29.52 12/07/2014 2:26 PM EDT documented in this encounter Patient Instructions * Patient Instructions* Estefania Marte MD - 01/08/2015 3:48 PM EDT Your exam shows that you are healing nicely from radiotherapy & there is no evidence of cancer.The residual tenderness in your right breast with pressure to the area is not unexpected & I think it will significantly decrease & likely resolve with time. You may continue the dax's cream. You may resume your regular deodorant on your right underarm. You may use a straight/regular razor on your right underarm. You may expose the irradiated area to sun, but it is recommended that you apply sunscreen with an SPF of @ least #45 on the irradiated area prior to exposing it to sun. You may swim in chlorinated water. We will mail you a letter with an appointment to see me or a Radiation Oncology fiberglass finisher in 6 months. documented in this encounter Progress Notes * Estefania Marte MD - 01/08/2015 3:37 PM EDT CC: Sched'd fu s/p xrt completion. HPI: 64 y/o f who completed xrt 6 wks ago for breast ca, R, IDC, low to focal intermed gr, ER+WY+, Dqo6lgj-, pT1c pN0, stage I. 12/07/[address] Nino & rx'd jacobson, but told him that she did not want to start it for a month or so. Skin in tx'd area healed. No pain. Appetite & energy level good. 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 She did not want to start the jacobson prior to teaching the class in [place], [place] & plans to start the jacobson in the near future. She reports that her breast surgeon, Dr. Lewis, will be obtaining fu mmgs. Past Medical History Diagnosis Date ??? Headache(784.0) ??? Breast cancer Past Surgical History Procedure Laterality Date ??? [place] tooth extraction 1966 ??? section Bilateral 08/1991 ??? Breast biopsy 2014 Physical Exam Constitutional: She is oriented to person, place, and time. She appears well- developed and well-nourished. No distress. BP 136/79 mmHg Pulse 72 Temp(Src) 36.7 ??C (98.1 ??F) (Oral) Resp 18 Wt 74.163 kg (163 lb 8oz) SpO2 99% HENT: Head: Normocephalic and atraumatic. [...] no tenderness. Right breast exhibits skin change (Mildhyperpigmentation, mainly in inframammary fold, consistent w/not unexpected post xrt appearance.) and tenderness (Mildly tender to deep palpation @ lumpectomy site, not unexpected after xrt. ). Rightbreast exhibits no inverted nipple, no mass and [...] is normal. Judgment and thought contentnormal. A: Recovering well from xrt. KATHERIN. P: Rtc 6 mos. documented in this encounter Plan of Treatment Not on file documented as of this encounter Visit Diagnoses Diagnosis Breast cancer, female, right documented in this encounter Care Teams Dredging Inspector Relationship Specialty Start Date End Date Ankit Vera MD [address] [place] [address] PCP - General 02/05/10 documented as of this encounter
--- OUTSIDE RECORDS SUMMARY | 2024-01-21 21:47 | XMS_ITS | Encounter Summary ---
[place] [address] Care Team Providers Care Double Surface Operator Name Role Phone Ankit Vera MD Primary Care Provider [phone] Encounter Details Date Type Department Care Team (Late st Contact Info) Description 08/15/2014 4:35 PM EDT - 08/15/2014 11:59 PM EDT Hospital Encounter [place] [address] Elissa Madrid MD [address] [place] [address] Discharge Disposition: Home Social History Tobacco Use Types Packs/Day Years Used Date Smoking Tobacco: Never Assessed Sex and Gender Information Value Date Recorded Sex Assigned at Female 03/25/2021 7:30 PM EST Gender Identity Female 03/25/2021 7:31 PM EST Sexual Orientation Straight 03/25/2021 7: 30 PM EST documented as of this encounter Plan of Treatment Not on file documented as of this encounter Procedures Procedure Name Priority Date/Time Associated Diagnosis Comments SURGICAL PATHOLOGY REPORT Routine 08/15/2014 9:57 AM EDT ULTRASOUND SCAN (SCAN) 08/02/2014 12:00 AM EDT MAMMOGRAM SCAN 08/02/2014 12:00 AM EDT documented in this encounter Results * Surgical Pathology Report (08/15/2014 9:57 AM EDT) Final Diagnosis ? [facility] ? Provider: ?? ELISSA MADRID ??Pt. Name: ?? FLOR LEMA ? Acc #: ?[id number] ?Pt. ? Col Date: ?? 08/15/2014 ?/Sex: ?1950,(64 years),Female ? Rec Date: ?? 08/16/2014 ?LOC: ?[facility] ? SURGICAL PATHOLOGY ? ---Pathologic Diagnosis--- ? CONSULTATION CASE ? Outside slides labeled [id number], collection date 08/02/2014. ? Needle biopsies: ?Right breast, 2:00. ? Diagnosis: ?Invasive ductal carcinoma, low grade. ? Microcalcifications: ??NA ? On Submitted slides (reviewed) ? ER immunoreactivity: ??Positive ??> 90% cancer cells with immunostaining ? Stain Intensity Strong ? WV immunoreactivity: ??Positive ??> 90% cancer cells with immunostaining ? Stain Intensity Moderate ? Note: Per report, IHC for Her2/zayda is 1+/negative. ? -- ? *Diagnostic ojeda for hormone receptors (ASCO/CAP GUIDELINES, 2010): ? Negative immunoreactivity: <1% tumor cells with immunostaining ? Positive immunoreactivity: >1% tumor cells with immunostaining ? Immunohistochemical assays were performed on paraffin-embedded tissue ? sections fixed in 10% neutral buffered formalin for 6-72 hours using the ? polymer system technique with appropriate positive and negative controls. ? The assays were performed according to the press operator meat? s instructions ? using Anti-ER (SP1) and Anti-WV (16) antibodies. ? CR-0 ? 08/16/14 ? LLW ? 08/18/14 Verified by: ? John JOY, Susy Morales ? Pathologist ? (Electronic Signature) ? The attending pathologist whose signature appears on this report has ? reviewed all diagnostic slides and has edited the gross and/or ? microscopic portion of the report in rendering the final pathologic ? diagnosis. ? ---Microscopic Description--- ? Slides reviewed, microscopic description not recorded. ? [facility] ? Provider: ?? ELISSA MADRID ??Pt. Name: ?? FLOR LEMA ? Acc #: ?Pt. ? Col Date: ?? 08/15/2014 ?/Sex: ?1950,(64 years),Female ? Rec Date: ?? 08/16/2014 ?LOC: ?[facility] ? SURGICAL PATHOLOGY ? ---Gross Description--- ? [facility] pathology slide(s) are reviewed. ??Refer to ? Diagnosis and Specimen Submitted for specific case information. ? For the full text of the [facility] report(s) please refer to Non-DH Documentation ? Pathology in the electronic health record (eDH). ? ---Clinical Information--- ? Specimen Submitted: ? CONSULTATION CASE ? A - 7 slides labeled [id number], collection date 08/02/2014. ? [id number] ? Report to: ? [facility] ? Dept. of Pathology ? [address] [facility] ? [place], [place] ??[address] ? 08/18/2014 3:08 PM EDT [facility] Consult Case 08/15/2014 9:57 AM EDT 08/15/2014 9:57 AM EDT Elissa Madrid MD PATHOLOGY/CYTOLOGY ORDERABLES [facility] [place] [address] * SCAN DOC: MAMMOGRAM (08/02/2014 12:00 AM EDT) Anatomical Region Laterality Modality Other Scanning Provider MEDIA MGR SCAN EXT O RDR/RSLT * SCAN DOC: ULTRASOUND (08/02/2014 12:00 AM EDT) Anatomical Region Laterality Modality Other Scanning Provider MEDIA MGR SCAN EXT O RDR/RSLT documented in this encounter Visit Diagnoses Not on filedocumented in this encounter Care Teams Double Surface Operator Relationship Specialty Start Date End Date Ankit Vera MD [address] [address] PCP - General 02/05/10 documented as of this encounter
--- OUTSIDE RECORDS SUMMARY | 2024-01-21 21:47 | XMS_ITS | Encounter Summary ---
Author Organization [facility] [place] [address] Care Team Providers Care Nurses Medical Assistants Phlebotomists Name Role Phone Ankit Vera MD Primary Care Provider [phone] Encounter Details Date Type Department Care Team ([facility] st Contact Info) Description 08/16/2014 External [place] [phone] Provider, Scanning Social History Tobacco Use Types [...] Associated Diagnosis Comments SURGICAL PATHOLOGY SCAN Routine 08/16/2014 documented in this encounter Results * Scan Doc: Surgical Pathology (08/16/2014) Rosario Lewis MD MEDIA MGR SCAN EXT ORDR/RSLT documented in this encounter Visit Diagnoses Not on filedocumented in this encounter Care Teams Nurses Medical Assistants Phlebotomists Relationship Specialty Start Date End Date Ankit Vera MD [address] [address] PCP - General 02/05/10 documented as of this encounter
--- OUTSIDE RECORDS SUMMARY | 2024-01-21 21:47 | XMS_ITS | Encounter Summary ---
Author Organization [facility] [place] [address] Care Team Providers Care Unix System Administrator Name Role Phone Ankit Vera MD Primary Care Provider [phone] Encounter Details Date Type Department Care Team (Latest Contact Info) Description 08/02/2014 - 08/02/2014 12:04 AM EDT Hospital Encounter Radiology Library at [facility] [place] [address] [address] David Saleh MD [facility] [place] [address] Discharge Disposition: Home Social History Tobacco Use [...] Comments FILM LIBRARY STORAGE ONLY MAMMO Routine 08/02/2014 12:00 AM EDT documented in this encounter Results * Film Library- Storage Only Mammo (08/02/2014 12:00 AM EDT) Narrative [facility] - 05/04/2017 1:03 PM EST This exam is for storage only and is auto-finalizing. David Saleh MD [facility] FILM LIBRARY ORD ERABLES [place], [place] documented in this encounter Visit Diagnoses Not on filedocumented in this encounter Care Teams Unix System Administrator Relationship Specialty Start Date End Date Ankit Vera MD [address] [address] PCP - General 02/05/10 documented as of this encounter
--- OUTSIDE RECORDS SUMMARY | 2024-01-21 21:47 | XMS_ITS | Encounter Summary ---
Author Organization [facility] [place] [address] Care Team Providers Care Electrical Wirer Name Role Phone Ankit Vera MD Primary Care Provider + [phone] Encounter Details Date Type Department Care Team (Latest Contact Info) Description 08/02/2014 12:05 AM EDT - 08/02/2014 11:59 PM EDT Hospital Encounter Radiology Library at [facility] [address] [place] [address] David Saleh MD [facility] [place] [address] Discharge Disposition: Home Social History Tobacco Use [...] Comments FILM LIBRARY-STORAGE ONLY US BREAST Routine 08/02/2014 12:05 AM EDT documented in this encounter Results * Film Library Storage Only US Breast (08/02/2014 12:05 AM EDT) Narrative [facility] - 05/04/2017 3:21 PM EST This exam is for storage only and is auto-finalizing. David Saleh MD [facility] FILM LIBRARY ORD ERABLES [place], [place] documented in this encounter Visit Diagnoses Not on filedocumented in this encounter Care Teams Electrical Wirer Relationship Specialty Start Date End Date Ankit Vera MD [address] [address] PCP - General 02/05/10 documented as of this encounter
[2024-01-21 22:22] LABS: Influenza A PCR Negative (Negative); Influenza B PCR Negative (Negative); RSV PCR Negative (Negative)
[2024-01-21 22:24] LABS: COVID-19 PCR Positive (Negative); Source NASOPHARYNX
== END 2024-01-21 21:42 | disposition home or self-care (01) ==
LOC: LBN 21:41
PROVIDERS: PCP Pain Medicine Pain Medicine; Visit Provider Physician Assistant Medical
DX: R05.9 Cough, unspecified (principal); M17.11 Unilateral primary osteoarthritis, right knee; M65.4 Radial styloid tenosynovitis [de Quervain]
CPT/HCPCS: 87637

== ENCOUNTER 2024-05-06 10:18 | Outpatient (CLI) | payer MEDICARE, SELFPAY ==
--- NOTE | 2024-05-06 10:15 | RT.EKG_ITS ---
APPROVED REPORT Exam: Resting ECG Reason for Exam: Unspecified conduction disorder of the heart Patient Location: O HR:56 bpm ECG Measurements Heart Rate 56 AXIS IA 192 P 46 QRSd 95 QRS -15 QT 430 T 53 QTc 416 Conclusion Sinus rhythm...normal P axis, V-rate 50- 99 Borderline left axis deviation...QRS axis (-15,-29) Low voltage, precordial leads...precordial leads <1.0mV Poor R wave progression
== END 2024-05-06 10:19 | disposition home or self-care (01) ==
PROVIDERS: PCP Pain Medicine Pain Medicine; Visit Provider Pain Medicine Pain Medicine
DX: I45.9 Conduction disorder, unspecified (principal)
CPT/HCPCS: 93005; 93010